=== PATIENT | male | born 1955 | race Caucasian/White ===

== ENCOUNTER 2022-06-03 09:00 | Inpatient (IN) ==
[2022-06-01] MEDS: NS 1,000 ML IV 1,000 ML IV SCH (18:06)
[2022-06-01] MEDS: DILAUDID INJ IVP PRN (18:06)
[2022-06-01 18:33] LABS: HEMATOCRIT 29.2 % (42.0-54.0); MEAN PLATELET VOLUME 7.6 fL (7.4-11.0); RED BLOOD COUNT 3.54 X10^6/uL (4.7-6.0); WHITE BLOOD COUNT 10.8 X10^3/uL (3.6-10.0)
[2022-06-01 18:35] LABS: BASOPHILS # (AUTO) 0.1 X10^3/uL (0.0-0.1); BASOPHILS % (AUTO) 0.5 % (0.2-1.0); EOSINOPHILS % (AUTO) 0.2 % (0.9-2.9); HEMOGLOBIN 9.8 g/dL (13.5-18.0); LYMPHOCYTES # (AUTO) 1.5 X10^3/uL (1.3-2.9); LYMPHOCYTES % (AUTO) 13.5 % (21.0-51.0); MEAN CORPUSCULAR HEMOGLOBIN 27.7 pg (27.0-34.0); MEAN CORPUSCULAR HGB CONC 33.6 g/dL (33.0-35.0); MEAN CORPUSCULAR VOLUME 82.6 fL (80.0-100.0); MONOCYTES # (AUTO) 0.7 x10^3/uL (0.3-0.8); MONOCYTES % (AUTO) 6.4 % (0.0-13.0); NEUTROPHILS # (AUTO) 8.5 x10^3/uL (2.2-4.8); NEUTROPHILS % (AUTO) 79.4 % (42.0-75.0); RED CELL DISTRIBUTION WIDTH 18.7 % (11.6-16.5)
[2022-06-01 18:42] LABS: ALANINE AMINOTRANSFERASE 22 Units/L (12-78); ALBUMIN 2.1 g/dL (3.4-5.0); ALKALINE PHOSPHATASE 168 Units/L (46-116); ASPARTATE AMINO TRANSFERASE 16 Units/L (15-37); BLOOD UREA NITROGEN 41 mg/dL (7-18); CALCIUM 9.7 mg/dL (8.5-10.1); CARBON DIOXIDE 22.1 mmol/L (21-32); CHLORIDE 99 mmol/L (98-107); COR CA(FOR HYPOALB) 11.2 mg/dL (8.5-10.1); COR NA(FOR HYPERGLY) 135 mmol/L (136-145); CREATININE 0.85 mg/dL (0.70-1.30); SODIUM 132 mmol/L (136-145); TOTAL PROTEIN 6.8 g/dL (6.4-8.2); eGFR NON BLACK RACES > 60 (>60)
[2022-06-02] MEDS: DILAUDID INJ IVP PRN ×4 (05:55→22:01)
[2022-06-02 06:49] LABS: BASOPHILS # (AUTO) 0.1 X10^3/uL (0.0-0.1); BASOPHILS % (AUTO) 0.6 % (0.2-1.0); EOSINOPHILS % (AUTO) 0.1 % (0.9-2.9); HEMATOCRIT 28.7 % (42.0-54.0); HEMOGLOBIN 9.8 g/dL (13.5-18.0); LYMPHOCYTES # (AUTO) 1.7 X10^3/uL (1.3-2.9); LYMPHOCYTES % (AUTO) 16.2 % (21.0-51.0); MEAN CORPUSCULAR HGB CONC 34.1 g/dL (33.0-35.0); MEAN PLATELET VOLUME 7.8 fL (7.4-11.0); MONOCYTES # (AUTO) 0.8 x10^3/uL (0.3-0.8); MONOCYTES % (AUTO) 7.5 % (0.0-13.0); NEUTROPHILS % (AUTO) 75.6 % (42.0-75.0); RED CELL DISTRIBUTION WIDTH 18.9 % (11.6-16.5); WHITE BLOOD COUNT 10.6 X10^3/uL (3.6-10.0)
[2022-06-02 06:55] LABS: ALANINE AMINOTRANSFERASE 20 Units/L (12-78); ALKALINE PHOSPHATASE 185 Units/L (46-116); ASPARTATE AMINO TRANSFERASE 19 Units/L (15-37); BLOOD UREA NITROGEN 30 mg/dL (7-18); CALCIUM 9.3 mg/dL (8.5-10.1); CARBON DIOXIDE 23.5 mmol/L (21-32); CHLORIDE 99 mmol/L (98-107); COR CA(FOR HYPOALB) 10.9 mg/dL (8.5-10.1); COR NA(FOR HYPERGLY) 134 mmol/L (136-145); CREATININE 0.69 mg/dL (0.70-1.30); SODIUM 132 mmol/L (136-145); TOTAL PROTEIN 6.7 g/dL (6.4-8.2); eGFR NON BLACK RACES > 60 (>60)
[2022-06-02] MEDS: NS 1,000 ML IV 1,000 ML IV SCH ×2 (09:06→20:32)
[2022-06-02] MEDS: NovoLIN R (or HumuLIN R) SUBCUT PRN ×2 (11:55→21:05)
--- NOTE | 2022-06-02 13:24 | DR.H&P ---
H&P - History & Physical for Day of: H&P Date: 06/01/22 - Chief Complaint Chief Complaint: CO PAINFUL, INFECTED BEDSORE - History of Present Illness History of Present Illness: PT IS 66WM ADMITTED WITH CO SEVERE PAIN TO SACRAL DECUBITUS, CO FOUL ODOR AND WEAKNESS. PT IS S/P COLON RESECTION INJULY WITH COLOSTOMY. PT HAD BEEN UNDER THE CARE OF DR MULLIGAN FOR STAGE4 COLON CA. DUE TO COMPLICATIONS FOLLOWING SURGERY, PT WAS BED BOUND FOR OVER A MONTH. PT HAS CENTRAL ABDOMINAL SCAR WITH RUPTURED SEROMA, LEAKING YELLOW FLUID AT THIS TIME. PT SPOUSE STATES HE HAD BEEN VERY WEAK AND HAD UNCONTROLLED PAIN. PT ADMITTED FOR TREATMENT OF ACUTE ILLNESS AND SURGICAL CONSULT - Past Medical History Past Medical History: Arthritis, Diabetes, Hypertension Additional Medical History: COLON CANCER - Past Surgical History Surgical History: Bowel Resection - Social History Does patient currently use any type of tobacco product: No Have you used tobacco products in the last 12 months: No Type of Tobacco Use: None Does any household member use tobacco: No Alcohol Use: None Drug Use: None - Medications Home Medications: Penicillins Allergy (Verified 06/01/22 17:00) CONTINUE taking the following medications aspirin 81 mg tablet,delayed release 81 mg PO DAILY 06/02/22 [History] losartan 25 mg tablet (Cozaar) 25 mg PO BID 06/02/22 [History] metformin 1,000 mg tablet 1,000 mg PO BID 06/02/22 [History] metoprolol tartrate 25 mg tablet 25 mg PO BID 06/02/22 [History] pantoprazole 40 mg tablet,delayed release 40 mg PO DAILY 06/02/22 [History] simvastatin 20 mg tablet 20 mg PO QDAY 06/02/22 [History] - Review of Systems Constitutional: Weakness Eyes: No Symptoms Reported ENT: No Symptoms Reported Respiratory: No Symptoms Reported Cardiovascular: No Symptoms Reported Gastrointestinal: Other (COLOSTOMY) Genitourinary: No Symptoms Reported Musculoskeletal: Back Pain Skin: Wound Neurological: Weakness - Physical Exam Vital Signs: Temperature 98 F Pulse Rate [Left Radial] 113 Respiratory Rate 20 Blood Pressure [Left Arm] 91/55 O2 Sat by Pulse Oximetry 91 Oriented: Normal Eyes: Normal Ear: Normal Nose: Normal Throat: Normal Respiratory: RLL Diminished, LLL Diminished Cardiovascular: Normal Auscultation: Bowel Sounds: Normal, Other (COLOSTOMY PRESENT WITH STOOL) Palpation: Normal Tenderness: Normal Skin: Decreased Turgur, Wound (2CM TUNNEL WOUND ALONG CENTRAL ABDOMINAL SCAR, LARGE SACRAL DECUBITUS WITH PURULENT, MALODOROUS DC) Mood Description: Calm Speech Pattern: Clear, Appropriate - Assessment/Plan (1) Sacral decubitus ulcer, stage III Status: Acute Plan: ADMIT, WOUND CULTURE, IV ATBX. PAIN CONTROL, IV HYDRATION. VERIFY HOME MEDICATION, SURGICAL CONSULT. BP CONTROL (2) Open abdominal wall wound Status: Acute (3) H/O colon cancer, stage IV Status: Acute (4) Diabetes Status: Acute - Allergies Allergies/Adverse Reactions: Allergies Allergy/AdvReac Type Severity Reaction Status Date / Time Penicillins Allergy Verified 06/01/22 17:00
[2022-06-02] MEDS: COZAAR PO SCH ×2 (13:56→21:04)
[2022-06-02] MEDS: LEVAQUIN PREMIX IV 500 MG 500 MG/100 ML BAG IV SCH (13:57)
[2022-06-02] MEDS: ZOCOR TAB 20 MG PO SCH (13:57)
[2022-06-02] MEDS: PERCOCET TAB 5/325 MG PO PRN (19:08)
[2022-06-02] MEDS: LOPRESSOR TAB 25 MG PO SCH (21:05)
[2022-06-02] MEDS: SNACK - Diabetic Appropriate PO SCH (21:08)
[2022-06-03] MEDS: NS 1,000 ML IV 1,000 ML IV SCH ×3 (04:52→22:57)
[2022-06-03] MEDS: PERCOCET TAB 5/325 MG PO PRN ×2 (04:57→17:00)
[2022-06-03 06:32] LABS: BASOPHILS % (AUTO) 0.4 % (0.2-1.0); EOSINOPHILS % (AUTO) 0.6 % (0.9-2.9); HEMATOCRIT 25.4 % (42.0-54.0); HEMOGLOBIN 8.6 g/dL (13.5-18.0); LYMPHOCYTES # (AUTO) 1.5 X10^3/uL (1.3-2.9); LYMPHOCYTES % (AUTO) 16.8 % (21.0-51.0); MEAN CORPUSCULAR HEMOGLOBIN 27.9 pg (27.0-34.0); MEAN CORPUSCULAR VOLUME 82.1 fL (80.0-100.0); MEAN PLATELET VOLUME 7.7 fL (7.4-11.0); MONOCYTES # (AUTO) 0.7 x10^3/uL (0.3-0.8); MONOCYTES % (AUTO) 8.3 % (0.0-13.0); NEUTROPHILS # (AUTO) 6.6 x10^3/uL (2.2-4.8); NEUTROPHILS % (AUTO) 73.9 % (42.0-75.0); RED BLOOD COUNT 3.09 X10^6/uL (4.7-6.0); RED CELL DISTRIBUTION WIDTH 18.5 % (11.6-16.5); WHITE BLOOD COUNT 8.9 X10^3/uL (3.6-10.0)
[2022-06-03 06:47] LABS: ALANINE AMINOTRANSFERASE 24 Units/L (12-78); ALBUMIN 1.6 g/dL (3.4-5.0); ALKALINE PHOSPHATASE 189 Units/L (46-116); ASPARTATE AMINO TRANSFERASE 32 Units/L (15-37); BLOOD UREA NITROGEN 17 mg/dL (7-18); CHLORIDE 101 mmol/L (98-107); COR CA(FOR HYPOALB) 10.9 mg/dL (8.5-10.1); COR NA(FOR HYPERGLY) 135 mmol/L (136-145); CREATININE 0.59 mg/dL (0.70-1.30); SODIUM 133 mmol/L (136-145); TOTAL PROTEIN 5.9 g/dL (6.4-8.2); eGFR NON BLACK RACES > 60 (>60)
[2022-06-03] MEDS: LEVAQUIN PREMIX IV 500 MG 500 MG/100 ML BAG IV SCH (08:39)
[2022-06-03] MEDS: COZAAR PO SCH ×2 (08:39→21:43)
[2022-06-03] MEDS: ZOCOR TAB 20 MG PO SCH (08:40)
[2022-06-03] MEDS: LOPRESSOR TAB 25 MG PO SCH ×2 (08:40→21:43)
[2022-06-03] MEDS: ASPIRIN EC 81 MG PO SCH (08:40)
[2022-06-03] MEDS: PROTONIX TAB 40 MG PO SCH (08:40)
[2022-06-03] MEDS: DILAUDID INJ IVP PRN (09:35)
[2022-06-03 13:40] VITALS: BMI 27.6
[2022-06-03] MEDS: NovoLIN R (or HumuLIN R) SUBCUT PRN (17:07)
[2022-06-03] MEDS: SNACK - Diabetic Appropriate PO SCH (21:43)
[2022-06-04] MEDS: PERCOCET TAB 5/325 MG PO PRN (01:03)
[2022-06-04] MEDS: NS 1,000 ML IV 1,000 ML IV SCH ×3 (04:02→20:01)
[2022-06-04] MEDS: NovoLIN R (or HumuLIN R) SUBCUT PRN ×2 (05:46→12:56)
[2022-06-04 05:51] LABS: BASOPHILS # (AUTO) 0.1 X10^3/uL (0.0-0.1); BASOPHILS % (AUTO) 0.8 % (0.2-1.0); EOSINOPHILS # (AUTO) 0.1 x10^3/uL (0.0-0.2); EOSINOPHILS % (AUTO) 1.3 % (0.9-2.9); HEMATOCRIT 25.8 % (42.0-54.0); HEMOGLOBIN 8.7 g/dL (13.5-18.0); LYMPHOCYTES # (AUTO) 1.7 X10^3/uL (1.3-2.9); LYMPHOCYTES % (AUTO) 24.7 % (21.0-51.0); MEAN CORPUSCULAR HEMOGLOBIN 27.8 pg (27.0-34.0); MEAN CORPUSCULAR HGB CONC 33.7 g/dL (33.0-35.0); MEAN CORPUSCULAR VOLUME 82.7 fL (80.0-100.0); MEAN PLATELET VOLUME 7.7 fL (7.4-11.0); MONOCYTES # (AUTO) 0.6 x10^3/uL (0.3-0.8); MONOCYTES % (AUTO) 8.2 % (0.0-13.0); NEUTROPHILS # (AUTO) 4.5 x10^3/uL (2.2-4.8); RED BLOOD COUNT 3.12 X10^6/uL (4.7-6.0); RED CELL DISTRIBUTION WIDTH 18.2 % (11.6-16.5)
[2022-06-04 06:06] LABS: ALANINE AMINOTRANSFERASE 82 Units/L (12-78); ALBUMIN 1.5 g/dL (3.4-5.0); ALKALINE PHOSPHATASE 314 Units/L (46-116); ASPARTATE AMINO TRANSFERASE 97 Units/L (15-37); BLOOD UREA NITROGEN 13 mg/dL (7-18); CALCIUM 8.7 mg/dL (8.5-10.1); CARBON DIOXIDE 22.5 mmol/L (21-32); CHLORIDE 101 mmol/L (98-107); COR CA(FOR HYPOALB) 10.7 mg/dL (8.5-10.1); COR NA(FOR HYPERGLY) 137 mmol/L (136-145); CREATININE 0.64 mg/dL (0.70-1.30); SODIUM 133 mmol/L (136-145); TOTAL PROTEIN 5.6 g/dL (6.4-8.2); eGFR NON BLACK RACES > 60 (>60)
[2022-06-04] MEDS: ALBUMIN HUMAN 25%- 100 ML 100 ML IV SCH (09:26)
[2022-06-04] MEDS: COZAAR PO SCH ×2 (09:27→09:54)
[2022-06-04] MEDS: ASPIRIN EC 81 MG PO SCH ×2 (09:27→09:54)
[2022-06-04] MEDS: PROTONIX TAB 40 MG PO SCH ×2 (09:27→09:54)
[2022-06-04] MEDS: LEVAQUIN PREMIX IV 500 MG 500 MG/100 ML BAG IV SCH (09:27)
[2022-06-04] MEDS: ZOCOR TAB 20 MG PO SCH ×2 (09:28→09:54)
[2022-06-04] MEDS: LOPRESSOR TAB 25 MG PO SCH ×2 (09:28→09:54)
[2022-06-04] MEDS: DILAUDID INJ IVP PRN ×2 (10:09→11:58)
[2022-06-04] MEDS ORDERED: XYLOCAINE 2 % (PLAIN) ONE (14:25)
[2022-06-04] MEDS ORDERED: DIPRIVAN VIAL 20 ML ONE (14:25)
[2022-06-04] MEDS ORDERED: VERSED ONE (14:26)
[2022-06-04] MEDS ORDERED: BETADINE SOLN ONE (14:27)
[2022-06-04] MEDS ORDERED: POLYMYXIN B SULFATE ONE (14:27)
[2022-06-04] MEDS ORDERED: FENTANYL VIAL INJ 100 mcg ONE (14:28)
[2022-06-04] MEDS ORDERED: NS 1,000 ML IV 1,000 ML ONE (15:19)
[2022-06-04] MEDS ORDERED: KETAMINE HCL ONE (15:45)
[2022-06-04] MEDS ORDERED: VANCOMYCIN IV *PREMIX 1 G/200 ML BAG 1 G/200 ML PIGGYBACK IV ONE (15:51)
[2022-06-04] MEDS ORDERED: MARCAINE 0.5% ONE (16:10)
[2022-06-04] MEDS: SNACK - Diabetic Appropriate PO SCH (20:00)
[2022-06-05] MEDS: SNACK - Diabetic Appropriate PO SCH ×2 (00:04→23:28)
[2022-06-05] MEDS: NS 1,000 ML IV 1,000 ML IV SCH ×4 (00:05→23:27)
[2022-06-05] MEDS: COZAAR PO SCH ×3 (01:11→21:08)
[2022-06-05] MEDS: PERCOCET TAB 5/325 MG PO PRN ×2 (03:15→09:15)
[2022-06-05 06:14] LABS: BASOPHILS # (AUTO) 0.1 X10^3/uL (0.0-0.1); BASOPHILS % (AUTO) 1.2 % (0.2-1.0); EOSINOPHILS # (AUTO) 0.1 x10^3/uL (0.0-0.2); EOSINOPHILS % (AUTO) 2.7 % (0.9-2.9); HEMATOCRIT 24.2 % (42.0-54.0); HEMOGLOBIN 8.1 g/dL (13.5-18.0); LYMPHOCYTES # (AUTO) 1.5 X10^3/uL (1.3-2.9); MEAN CORPUSCULAR HEMOGLOBIN 27.8 pg (27.0-34.0); MEAN CORPUSCULAR HGB CONC 33.6 g/dL (33.0-35.0); MEAN CORPUSCULAR VOLUME 82.8 fL (80.0-100.0); MEAN PLATELET VOLUME 7.8 fL (7.4-11.0); MONOCYTES # (AUTO) 0.5 x10^3/uL (0.3-0.8); NEUTROPHILS % (AUTO) 58.1 % (42.0-75.0); RED BLOOD COUNT 2.92 X10^6/uL (4.7-6.0); RED CELL DISTRIBUTION WIDTH 18.5 % (11.6-16.5); WHITE BLOOD COUNT 5.3 X10^3/uL (3.6-10.0)
[2022-06-05 06:21] LABS: ALANINE AMINOTRANSFERASE 95 Units/L (12-78); ALBUMIN 1.7 g/dL (3.4-5.0); ALKALINE PHOSPHATASE 327 Units/L (46-116); ASPARTATE AMINO TRANSFERASE 101 Units/L (15-37); BLOOD UREA NITROGEN 9 mg/dL (7-18); CALCIUM 8.6 mg/dL (8.5-10.1); CARBON DIOXIDE 23.9 mmol/L (21-32); CHLORIDE 103 mmol/L (98-107); COR CA(FOR HYPOALB) 10.4 mg/dL (8.5-10.1); COR NA(FOR HYPERGLY) 139 mmol/L (136-145); CREATININE 0.47 mg/dL (0.70-1.30); SODIUM 136 mmol/L (136-145); TOTAL PROTEIN 5.3 g/dL (6.4-8.2); eGFR NON BLACK RACES > 60 (>60)
[2022-06-05] MEDS: ALBUMIN HUMAN 25%- 100 ML 100 ML IV SCH (09:31)
[2022-06-05] MEDS: ASPIRIN EC 81 MG PO SCH (09:32)
[2022-06-05] MEDS: LEVAQUIN PREMIX IV 500 MG 500 MG/100 ML BAG IV SCH (09:32)
[2022-06-05] MEDS: LOPRESSOR TAB 25 MG PO SCH ×3 (09:32→21:08)
[2022-06-05] MEDS: PROTONIX TAB 40 MG PO SCH (09:33)
[2022-06-05] MEDS: ZOCOR TAB 20 MG PO SCH (09:33)
--- NOTE | 2022-06-05 10:17 | DR.PROGNOT ---
Hospital Progress Notes - Progress Note for Day of: Progress Note Date: 06/05/22 - Chief Complaint Chief Complaint: feeling better today . moderate drainage from sacral ulcer .. dressing was changed and wound repacked .. - Past Medical Family Social History Past Med/Fam/Surg Hx: No changes since H&P Allergies: Allergies Penicillins Allergy (Verified 06/01/22 17:00) - Review Of Systems ROS: No change since H&P - Vital Signs Vital Signs: Temperature 98.5 F Pulse Rate [Left Radial] 91 Pulse Rate 87 Respiratory Rate 20 Blood Pressure [Right Arm] 107/55 Blood Pressure [Left Arm] 100/55 Blood Pressure 134/79 O2 Sat by Pulse Oximetry 98 - Physical Exam Oriented: Normal Eyes: Normal Ear: Normal Nose: Normal Throat: Normal Cardiovascular: Normal GI:Auscultation: Normal, Other (COLOSTOMY PRESENT WITH STOOL) GI:Palpation: Normal GI: Tenderness: Normal Skin: Decreased Turgur, Wound (2CM TUNNEL WOUND ALONG CENTRAL ABDOMINAL SCAR, LARGE SACRAL DECUBITUS WITH PURULENT, MALODOROUS DC) Mood Description: Calm Speech Pattern: Clear, Appropriate - Laboratory and Diagnostics Result Diagrams: 06/05/22 05:05 06/05/22 05:05 Labs: 06/04/22 16:17 Sacral Wound Gram Stain - Final 06/04/22 16:17 Sacral Wound Culture - Preliminary 06/02/22 10:10 Sacral Wound Gram Stain - Final 06/02/22 10:10 Sacral Wound Culture - Final Enterococcus Faecalis Klebsiella Pneumoniae 06/01/22 18:10 Blood Blood Culture - Preliminary 06/01/22 17:02 Abdomen Wound Culture - Final Staphylococcus Intermedius 06/01/22 18:00 Blood Blood Culture - Preliminary 06/01/22 17:25 Abdomen Wound Culture - Final Staphylococcus Aureus Laboratory WBC 5.3 X10^3/uL (3.6-10.0) 06/05/22 05:05 RBC 2.92 X10^6/uL (4.7-6.0) L 06/05/22 05:05 Hgb 8.1 g/dL (13.5-18.0) L 06/05/22 05:05 Hct 24.2 % (42.0-54.0) L 06/05/22 05:05 MCV 82.8 fL (80.0-100.0) 06/05/22 05:05 MCH 27.8 pg (27.0-34.0) 06/05/22 05:05 MCHC 33.6 g/dL (33.0-35.0) 06/05/22 05:05 RDW 18.5 % (11.6-16.5) H 06/05/22 05:05 Plt Count 454 X10^3/uL (150.0-450.0) H 06/05/22 05:05 MPV 7.8 fL (7.4-11.0) 06/05/22 05:05 Neut % (Auto) 58.1 % (42.0-75.0) 06/05/22 05:05 Lymph % (Auto) 29.0 % (21.0-51.0) 06/05/22 05:05 [place] % (Auto) 9.0 % (0.0-13.0) 06/05/22 05:05 Eos % (Auto) 2.7 % (0.9-2.9) 06/05/22 05:05 Baso % (Auto) 1.2 % (0.2-1.0) H 06/05/22 05:05 Neut # (Auto) 3.0 x10^3/uL (2.2-4.8) 06/05/22 05:05 Lymph # (Auto) 1.5 X10^3/uL (1.3-2.9) 06/05/22 05:05 Bee # (Auto) 0.5 x10^3/uL (0.3-0.8) 06/05/22 05:05 Eos # (Auto) 0.1 x10^3/uL (0.0-0.2) 06/05/22 05:05 Baso # (Auto) 0.1 X10^3/uL (0.0-0.1) 06/05/22 05:05 Absolute Nucleated RBC 0.2 /100WBC 06/05/22 05:05 Sodium 136 mmol/L (136-145) 06/05/22 05:05 Corrected Sodium 139 mmol/L (136-145) 06/05/22 05:05 Potassium 4.4 mmol/L (3.5-5.1) 06/05/22 05:05 Chloride 103 mmol/L (98-107) 06/05/22 05:05 Carbon Dioxide 23.9 mmol/L (21-32) 06/05/22 05:05 BUN 9 mg/dL (7-18) 06/05/22 05:05 Creatinine 0.47 mg/dL (0.70-1.30) L 06/05/22 05:05 Est GFR (MDRD) Af Amer > 60 (>60) 06/05/22 05:05 Est GFR (MDRD) Non-Af > 60 (>60) 06/05/22 05:05 Glucose 212 mg/dL (65-99) H 06/05/22 05:05 POC Glucose (mg/dL) 188 mg/dL (65-99) H 06/05/22 05:11 Calcium 8.6 mg/dL (8.5-10.1) 06/05/22 05:05 Corrected Calcium 10.4 mg/dL (8.5-10.1) H 06/05/22 05:05 Total Bilirubin 0.40 mg/dL (0.2-1.0) 06/05/22 05:05 AST 101 Units/L (15-37) H 06/05/22 05:05 ALT 95 Units/L (12-78) H 06/05/22 05:05 Alkaline Phosphatase 327 Units/L (46-116) H 06/05/22 05:05 Total Protein 5.3 g/dL (6.4-8.2) L 06/05/22 05:05 Albumin 1.7 g/dL (3.4-5.0) L 06/05/22 05:05 Globulin 3.6 g/dL (2.5-4.5) 06/05/22 05:05 Albumin/Globulin Ratio 0.5 Ratio (1.1-2.1) L 06/05/22 05:05 SARS-CoV-2 (PCR) Negative (NEGATIVE) 06/01/22 17:15 Tissue Pathology To follow 06/04/22 16:17 - Assessment and Plan 1: stage lll sactral ulcer 7 x 4 cm .. same local care , IV ABT .. wound Vac when the ifection is controlled .. nutritional support and OOB . - Problem Patient Problems: Patient Problems Sacral decubitus ulcer, stage III (Acute) L89.153 H/O colon cancer, stage IV (Acute) Z85.038 Open abdominal wall wound (Acute) S31.109A Diabetes (Acute) E11.9
[2022-06-05] MEDS: DILAUDID INJ IVP PRN (11:02)
--- NOTE | 2022-06-05 13:15 | PCM.PROG ---
Progress Note - Progress Note for Day of Date of Exam: 06/04/22 - Subjective Subjective: IS CURRENTLY BEING TREATED FOR AN INFECTED DECUBITUS ULCER, OPEN ABDOMINAL WALL WOUND, AND INTRACTABLE PAIN. HE IS S/P COLON RESECTION AND COLOSTOMY DUE TO STAGE 4 COLON CANCER. HE HAS A PMH OF HTN, DM II, HYPERLIPIDEMIA, AND GERD. TODAY, HE IS ALERT AND ORIENTED, LYING IN BED ON [place] ROUNDS. HE COMPLAINS OF PAIN TO THE SACRAL AREA, BUT DOES REPORT SOME IMPROVEMENT SINCE ADMISSION. ON EXAMINATION, HEART IS REGULAR IN RATE AND RHYTHM. BILATERAL LUNGS NOTED WITH DIMINISHED LUNG SOUNDS THROUGHOUT. ABDOMEN IS ROUND, SOFT, AND NOTED WITH MILD TENDERNESS. COLOSTOMY NOTED WITH LIQUID STOOL. DRESSING NOTED TO ABDOMEN WITH SEROSANGUINOUS DRAINAGE NOTED. ULCER TO SACRUM CONTINUES TO HAVE DRAINAGE AND FOUL ODOR. NO UPPER OR LOWER EXTREMITY EDEMA NOTED. HIS VITALS THIS MORNING ARE: 98.1-88-18-97%-113/98. LABS WERE OBTAINED. WBC 7.0, RBC 3.12, HGB 8.7, HCT 25.8, SODIUM 133, POTASSIUM 4.5, CHLORIDE 101, BUN 13, CREATININE 0.64, GLUCOSE 254, CALCIUM 8.7, AST 97, ALT 82, ALK PHOS 314, TOTAL PROTEIN 5.6, ALBUMIN 1.5. WOULD CULTURES TO ABDOMEN ARE POSITIVE FOR GROWTH OF STAPHYLOCOCCUS INTERMEDIUS AND STAPHYLOCOCCUS AUREUS. SACRUL WOUND POSITIVE POSTIVE FOR GROWTH OF ENTERICOCCUS FAECALIS AND KLEBSIELLA PNEUMONIAE. HE IS CURRENTLY RECEIVING NORMAL SALINE AT 125 ML/HR, LEVAQUIN 500MG IV DAILY, ALBUMIN 25% IV DAILY, ECOTRIN 81MG PO DAILY, DILAUDID 1-2MG IV Q4H PRN, NOVOLIN R SLIDING SCALE, COZAAR 25MG PO BID, LOPRESSOR 25MG PO BID, PROTONIX 40MG PO DAILY, ZOCOR 20MG PO DAILY, AND PERCOCET 5/325MG PO Q6H PRN. PLANS TO DEBRIDE WOUNDS TODAY. OTHERWISE, WE WILL CONTINUE WITH CURRENT PLAN OF CARE. WE WILL FOLLOW-UP WITH AM LABS AND CONTINUE TO MONITOR. TIME SPENT ON CLINICAL ASSESSMENT, REVIWING LABS AND IMAGING, DECISION MAKING, AND DOCUMENTATION GREATER THAN 45 MINUTES. - Past Medical Family Social History Past Med/Fam/Surg Hx: No changes since H&P Allergies: Allergies Penicillins Allergy (Verified 06/01/22 17:00) - Review of Systems ROS: No change since H&P - Vital Signs and I&O's Vital Signs: Temperature 98.1 F Pulse Rate [Left Radial] 82 Pulse Rate 87 Respiratory Rate 18 Blood Pressure [Right Arm] 107/55 Blood Pressure [Left Arm] 108/55 Blood Pressure 134/79 O2 Sat by Pulse Oximetry 95 Intake and Output: Intake & Output 06/03/22 06/04/22 06/05/22 06/06/22 11:59 11:59 11:59 11:59 Intake Total 2205 / 2205 1988 / 1988 2845 / 2845 Output Total 880 / 880 1200 / 1200 2350 / 2350 Balance 1325 / 1325 789 / 789 495 / 495 - Physical Exam Oriented: Normal Eyes: Normal Ear: Normal Nose: Normal Throat: Normal Cardiovascular: Normal Auscultation: Bowel Sounds: Normal, Other (COLOSTOMY PRESENT WITH STOOL) Tenderness: Normal Skin: Decreased Turgur, Wound (2CM TUNNEL WOUND ALONG CENTRAL ABDOMINAL SCAR, LARGE SACRAL DECUBITUS WITH PURULENT, MALODOROUS DC) Musculoskeletal: Normal Psychiatric: Normal Mood Description: Calm Affect: Normal Speech Pattern: Clear, Appropriate - Laboratory and Diagnostics Result Diagrams: 06/05/22 05:05 06/05/22 05:05 Labs: 06/04/22 16:17 Sacral Wound Gram Stain - Final 06/04/22 16:17 Sacral Wound Culture - Preliminary 06/02/22 10:10 Sacral Wound Gram Stain - Final 06/02/22 10:10 Sacral Wound Culture - Final Enterococcus Faecalis Klebsiella Pneumoniae 06/01/22 18:10 Blood Blood Culture - Preliminary 06/01/22 17:02 Abdomen Wound Culture - Final Staphylococcus Intermedius 06/01/22 18:00 Blood Blood Culture - Preliminary 06/01/22 17:25 Abdomen Wound Culture - Final Staphylococcus Aureus Laboratory WBC 5.3 X10^3/uL (3.6-10.0) 06/05/22 05:05 RBC 2.92 X10^6/uL (4.7-6.0) L 06/05/22 05:05 Hgb 8.1 g/dL (13.5-18.0) L 06/05/22 05:05 Hct 24.2 % (42.0-54.0) L 06/05/22 05:05 MCV 82.8 fL (80.0-100.0) 06/05/22 05:05 MCH 27.8 pg (27.0-34.0) 06/05/22 05:05 MCHC 33.6 g/dL (33.0-35.0) 06/05/22 05:05 RDW 18.5 % (11.6-16.5) H 06/05/22 05:05 Plt Count 454 X10^3/uL (150.0-450.0) H 06/05/22 05:05 MPV 7.8 fL (7.4-11.0) 06/05/22 05:05 Neut % (Auto) 58.1 % (42.0-75.0) 06/05/22 05:05 Lymph % (Auto) 29.0 % (21.0-51.0) 06/05/22 05:05 [place] % (Auto) 9.0 % (0.0-13.0) 06/05/22 05:05 Eos % (Auto) 2.7 % (0.9-2.9) 06/05/22 05:05 Baso % (Auto) 1.2 % (0.2-1.0) H 06/05/22 05:05 Neut # (Auto) 3.0 x10^3/uL (2.2-4.8) 06/05/22 05:05 Lymph # (Auto) 1.5 X10^3/uL (1.3-2.9) 06/05/22 05:05 [place] # (Auto) 0.5 x10^3/uL (0.3-0.8) 06/05/22 05:05 Eos # (Auto) 0.1 x10^3/uL (0.0-0.2) 06/05/22 05:05 Baso # (Auto) 0.1 X10^3/uL (0.0-0.1) 06/05/22 05:05 Absolute Nucleated RBC 0.2 /100WBC 06/05/22 05:05 Sodium 136 mmol/L (136-145) 06/05/22 05:05 Corrected Sodium 139 mmol/L (136-145) 06/05/22 05:05 Potassium 4.4 mmol/L (3.5-5.1) 06/05/22 05:05 Chloride 103 mmol/L (98-107) 06/05/22 05:05 Carbon Dioxide 23.9 mmol/L (21-32) 06/05/22 05:05 BUN 9 mg/dL (7-18) 06/05/22 05:05 Creatinine 0.47 mg/dL (0.70-1.30) L 06/05/22 05:05 Est GFR (MDRD) Af Amer > 60 (>60) 06/05/22 05:05 Est GFR (MDRD) Non-Af > 60 (>60) 06/05/22 05:05 Glucose 212 mg/dL (65-99) H 06/05/22 05:05 POC Glucose (mg/dL) 204 mg/dL (65-99) H 06/05/22 10:53 Calcium 8.6 mg/dL (8.5-10.1) 06/05/22 05:05 Corrected Calcium 10.4 mg/dL (8.5-10.1) H 06/05/22 05:05 Total Bilirubin 0.40 mg/dL (0.2-1.0) 06/05/22 05:05 AST 101 Units/L (15-37) H 06/05/22 05:05 ALT 95 Units/L (12-78) H 06/05/22 05:05 Alkaline Phosphatase 327 Units/L (46-116) H 06/05/22 05:05 Total Protein 5.3 g/dL (6.4-8.2) L 06/05/22 05:05 Albumin 1.7 g/dL (3.4-5.0) L 06/05/22 05:05 Globulin 3.6 g/dL (2.5-4.5) 06/05/22 05:05 Albumin/Globulin Ratio 0.5 Ratio (1.1-2.1) L 06/05/22 05:05 SARS-CoV-2 (PCR) Negative (NEGATIVE) 06/01/22 17:15 Tissue Pathology To follow 06/04/22 16:17 - Plan (1) Sacral decubitus ulcer, stage III Status: Acute Plan: WOUND DEBRIDEMENT TODAY, NORMAL SALINE AT 125 ML/HR, LEVAQUIN 500MG IV D AILY, ALBUMIN 25% IV DAILY, ECOTRIN 81MG PO DAILY, DILAUDID 1-2MG IV Q4H PRN, CONTINUE HOME MEDS (2) Open abdominal wall wound Status: Acute (3) H/O colon cancer, stage IV Status: Acute (4) Diabetes Status: Chronic Qualifiers: Diabetes mellitus type: type 2 Diabetes mellitus terminal computer operator insulin use: with terminal computer operator use Diabetes mellitus complication status: with other specified complication Qualified Code(s): E11.69 - Type 2 diabetes mellitus with other specified complication; Z79.4 - terminal make up operator (current) use of insulin (5) Hypertension Status: Chronic Qualifiers: Hypertension type: primary hypertension Qualified Code(s): I10 - Essential (primary) hypertension
--- NOTE | 2022-06-05 13:28 | PCM.PROG ---
Progress Note - Progress Note for Day of Date of Exam: 06/05/22 - Subjective Subjective: IS CURRENTLY BEING TREATED FOR AN INFECTED DECUBITUS ULCER, OPEN ABDOMINAL WALL WOUND, AND INTRACTABLE PAIN. HE IS DAY 1 STATUS POST DEBRIDEMENT OF SACRAL WOUNDS. HE IS ALSO RECENT S/P COLON RESECTION AND COLOSTOMY DUE TO STAGE 4 COLON CANCER. HE HAS A PMH OF HTN, DM II, HYPERLIPIDEM IA, AND GERD. TODAY, HE IS ALERT AND ORIENTED, LYING IN BED ON MORNING ROUNDS. HE CONTINUES TO COMPLAIN OF PAIN TO THE SACRAL AREA, BUT DOES REPORT SOME IMPROVEMENT SINCE YESTERDAY. ON EXAMINATION, HEART IS REGULAR IN RATE AND RHYTHM. BILATERAL LUNGS NOTED WITH DIMINISHED LUNG SOUNDS THROUGHOUT. ABDOMEN IS ROUND, SOFT, AND NOTED WITH MILD TENDERNESS. COLOSTOMY NOTED WITH LIQUID STOOL. DRESSING NOTED TO ABDOMEN WITH SCANT SEROSANGUINOUS DRAINAGE NOTED. ULCER TO SACRUM IS PACKED. WILL MANAGE DRESSING CHANGES FOR NOW. NO UPPER OR LOWER EXTREMITY EDEMA NOTED. HIS VITALS THIS MORNING ARE: 98.5-91-18-98%-100/55. HE IS CURRENTLY UTILIZING OXYGEN VIA NASAL CANNULA AT 2 LPM. LABS WERE OBTAINED. WBC 5.3, RBC 2.92, HGB 8.1, HCT 24.2, SODIUM 136, POTASSIUM 4.4, CHLORIDE 103, BUN 9, CREATININE 0.47, GLUCOSE 212, CALCIUM 8.6, AST 101, ALT 95, ALK PHOS 327, TOTAL PROTEIN 5.3, ALBUMIN 1.7. WOULD CULTURES TO ABDOMEN ARE POSITIVE FOR GROWTH OF STAPHYLOCOCCUS INTERMEDIUS AND STAPHYLOCOCCUS AUREUS. SACRUM WOUND POSITIVE POSTIVE FOR GROWTH OF ENTERICOCCUS FAECALIS AND KLEBSIELLA PNEUMONIAE. HE IS CURRENTLY RECEIVING NORMAL SALINE AT 125 ML/HR, LEVAQUIN 500MG IV DAILY, ALBUMIN 25% IV DAILY, ECOTRIN 81MG PO DAILY, DILAUDID 1-2MG IV Q4H PRN, NOVOLIN R SLIDING SCALE, COZAAR 25MG PO BID, LOPRESSOR 25MG PO BID, PROTONIX 40MG PO DAILY, ZOCOR 20MG PO DAILY, AND PERCOCET 5/325MG PO Q6H PRN. WILL DO DRESSING CHANGE TODAY. OTHERWISE, WE WILL CONTINUE WITH CURRENT PLAN OF CARE. WE WILL FOLLOW-UP WITH AM LABS AND CONTINUE TO MONITOR. TIME SPENT ON CLINICAL ASSESSMENT, REVIWING LABS AND IMAGING, DECISION MAKING, AND DOCUMENTATION GREATER THAN 45 MINUTES. - Past Medical Family Social History Past Med/Fam/Surg Hx: No changes since H&P Allergies: Allergies Penicillins Allergy (Verified 06/01/22 17:00) - Review of Systems ROS: No change since H&P - Vital Signs and I&O's Vital Signs: Temperature 98.1 F Pulse Rate [Left Radial] 82 Pulse Rate 87 Respiratory Rate 18 Blood Pressure [Right Arm] 107/55 Blood Pressure [Left Arm] 108/55 Blood Pressure 134/79 O2 Sat by Pulse Oximetry 95 Intake and Output: Intake & Output 06/03/22 06/04/22 06/05/22 06/06/22 11:59 11:59 11:59 11:59 Intake Total 2205 / 2205 1988 / 1988 2845 / 2845 Output Total 880 / 880 1200 / 1200 2350 / 2350 Balance 1325 / 1325 789 / 789 495 / 495 - Physical Exam Oriented: Normal Eyes: Normal Ear: Normal Nose: Normal Throat: Normal Respiratory: Diminished Cardiovascular: Normal Auscultation: Bowel Sounds: Normal, Other (COLOSTOMY PRESENT WITH STOOL) Palpation: Normal Tenderness: Normal Skin: Decreased Turgur, Wound (2CM TUNNEL WOUND ALONG CENTRAL ABDOMINAL SCAR, LARGE SACRAL DECUBITUS WITH PURULENT, MALODOROUS DC) Musculoskeletal: Normal Psychiatric: Normal Mood Description: Calm Affect: Normal Speech Pattern: Clear, Appropriate - Laboratory and Diagnostics Result Diagrams: 06/05/22 05:05 06/05/22 05:05 Labs: 06/04/22 16:17 Sacral Wound Gram Stain - Final 06/04/22 16:17 Sacral Wound Culture - Preliminary 06/02/22 10:10 Sacral Wound Gram Stain - Final 06/02/22 10:10 Sacral Wound Culture - Final Enterococcus Faecalis Klebsiella Pneumoniae 06/01/22 18:10 Blood Blood Culture - Preliminary 06/01/22 17:02 Abdomen Wound Culture - Final Staphylococcus Intermedius 06/01/22 18:00 Blood Blood Culture - Preliminary 06/01/22 17:25 Abdomen Wound Culture - Final Staphylococcus Aureus Laboratory WBC 5.3 X10^3/uL (3.6-10.0) 06/05/22 05:05 RBC 2.92 X10^6/uL (4.7-6.0) L 06/05/22 05:05 Hgb 8.1 g/dL (13.5-18.0) L 06/05/22 05:05 Hct 24.2 % (42.0-54.0) L 06/05/22 05:05 MCV 82.8 fL (80.0-100.0) 06/05/22 05:05 MCH 27.8 pg (27.0-34.0) 06/05/22 05:05 MCHC 33.6 g/dL (33.0-35.0) 06/05/22 05:05 RDW 18.5 % (11.6-16.5) H 06/05/22 05:05 Plt Count 454 X10^3/uL (150.0-450.0) H 06/05/22 05:05 MPV 7.8 fL (7.4-11.0) 06/05/22 05:05 Neut % (Auto) 58.1 % (42.0-75.0) 06/05/22 05:05 Lymph % (Auto) 29.0 % (21.0-51.0) 06/05/22 05:05 [place] % (Auto) 9.0 % (0.0-13.0) 06/05/22 05:05 Eos % (Auto) 2.7 % (0.9-2.9) 06/05/22 05:05 Baso % (Auto) 1.2 % (0.2-1.0) H 06/05/22 05:05 Neut # (Auto) 3.0 x10^3/uL (2.2-4.8) 06/05/22 05:05 Lymph # (Auto) 1.5 X10^3/uL (1.3-2.9) 06/05/22 05:05 [place] # (Auto) 0.5 x10^3/uL (0.3-0.8) 06/05/22 05:05 Eos # (Auto) 0.1 x10^3/uL (0.0-0.2) 06/05/22 05:05 Baso # (Auto) 0.1 X10^3/uL (0.0-0.1) 06/05/22 05:05 Absolute Nucleated RBC 0.2 /100WBC 06/05/22 05:05 Sodium 136 mmol/L (136-145) 06/05/22 05:05 Corrected Sodium 139 mmol/L (136-145) 06/05/22 05:05 Potassium 4.4 mmol/L (3.5-5.1) 06/05/22 05:05 Chloride 103 mmol/L (98-107) 06/05/22 05:05 Carbon Dioxide 23.9 mmol/L (21-32) 06/05/22 05:05 BUN 9 mg/dL (7-18) 06/05/22 05:05 Creatinine 0.47 mg/dL (0.70-1.30) L 06/05/22 05:05 Est GFR (MDRD) Af Amer > 60 (>60) 06/05/22 05:05 Est GFR (MDRD) Non-Af > 60 (>60) 06/05/22 05:05 Glucose 212 mg/dL (65-99) H 06/05/22 05:05 POC Glucose (mg/dL) 204 mg/dL (65-99) H 06/05/22 10:53 Calcium 8.6 mg/dL (8.5-10.1) 06/05/22 05:05 Corrected Calcium 10.4 mg/dL (8.5-10.1) H 06/05/22 05:05 Total Bilirubin 0.40 mg/dL (0.2-1.0) 06/05/22 05:05 AST 101 Units/L (15-37) H 06/05/22 05:05 ALT 95 Units/L (12-78) H 06/05/22 05:05 Alkaline Phosphatase 327 Units/L (46-116) H 06/05/22 05:05 Total Protein 5.3 g/dL (6.4-8.2) L 06/05/22 05:05 Albumin 1.7 g/dL (3.4-5.0) L 06/05/22 05:05 Globulin 3.6 g/dL (2.5-4.5) 06/05/22 05:05 Albumin/Globulin Ratio 0.5 Ratio (1.1-2.1) L 06/05/22 05:05 SARS-CoV-2 (PCR) Negative (NEGATIVE) 06/01/22 17:15 Tissue Pathology To follow 06/04/22 16:17 - Plan (1) Sacral decubitus ulcer, stage III Status: Acute Plan: WOUND CARE, NORMAL SALINE AT 125 ML/HR, LEVAQUIN 500MG IV DAILY, ALBUMIN 25% IV DAILY, ECOTRIN 81MG PO DAILY, DILAUDID 1-2MG IV Q4H PRN, CONTINUE HOME MEDS (2) Open abdominal wall wound Status: Acute (3) H/O colon cancer, stage IV Status: Acute (4) Diabetes Status: Chronic Qualifiers: Diabetes mellitus type: type 2 Diabetes mellitus long filler cigar roller machine insulin use: with senior care use Diabetes mellitus complication status: with other specified complication Qualified Code(s): E11.69 - Type 2 diabetes mellitus with other specified complication; Z79.4 - assisted (current) use of insulin (5) Hypertension Status: Chronic Qualifiers: Hypertension type: primary hypertension Qualified Code(s): I10 - Essential (primary) hypertension
[2022-06-05] MEDS: NovoLIN R (or HumuLIN R) SUBCUT PRN (21:08)
[2022-06-06] MEDS: NS 1,000 ML IV 1,000 ML IV SCH ×3 (05:36→16:42)
[2022-06-06 06:12] LABS: BASOPHILS # (AUTO) 0.1 X10^3/uL (0.0-0.1); BASOPHILS % (AUTO) 1.1 % (0.2-1.0); EOSINOPHILS # (AUTO) 0.2 x10^3/uL (0.0-0.2); EOSINOPHILS % (AUTO) 2.4 % (0.9-2.9); HEMATOCRIT 25.4 % (42.0-54.0); HEMOGLOBIN 8.7 g/dL (13.5-18.0); LYMPHOCYTES # (AUTO) 2.3 X10^3/uL (1.3-2.9); LYMPHOCYTES % (AUTO) 37.1 % (21.0-51.0); MEAN CORPUSCULAR HGB CONC 34.2 g/dL (33.0-35.0); MEAN CORPUSCULAR VOLUME 81.7 fL (80.0-100.0); MEAN PLATELET VOLUME 6.9 fL (7.4-11.0); MONOCYTES # (AUTO) 0.5 x10^3/uL (0.3-0.8); MONOCYTES % (AUTO) 8.6 % (0.0-13.0); NEUTROPHILS # (AUTO) 3.2 x10^3/uL (2.2-4.8); NEUTROPHILS % (AUTO) 50.8 % (42.0-75.0); RED BLOOD COUNT 3.11 X10^6/uL (4.7-6.0); RED CELL DISTRIBUTION WIDTH 18.4 % (11.6-16.5); WHITE BLOOD COUNT 6.3 X10^3/uL (3.6-10.0)
[2022-06-06] MEDS: PERCOCET TAB 5/325 MG PO PRN ×2 (06:12→20:33)
[2022-06-06 06:35] LABS: ALANINE AMINOTRANSFERASE 83 Units/L (12-78); ALBUMIN 1.9 g/dL (3.4-5.0); ALKALINE PHOSPHATASE 280 Units/L (46-116); ASPARTATE AMINO TRANSFERASE 65 Units/L (15-37); BLOOD UREA NITROGEN 7 mg/dL (7-18); CALCIUM 8.5 mg/dL (8.5-10.1); CARBON DIOXIDE 24.2 mmol/L (21-32); CHLORIDE 106 mmol/L (98-107); COR CA(FOR HYPOALB) 10.2 mg/dL (8.5-10.1); COR NA(FOR HYPERGLY) 140 mmol/L (136-145); CREATININE 0.45 mg/dL (0.70-1.30); SODIUM 140 mmol/L (136-145); TOTAL PROTEIN 5.4 g/dL (6.4-8.2); eGFR NON BLACK RACES > 60 (>60)
[2022-06-06] MEDS: ALBUMIN HUMAN 25%- 100 ML 100 ML IV SCH (08:44)
[2022-06-06] MEDS: LEVAQUIN PREMIX IV 500 MG 500 MG/100 ML BAG IV SCH (08:44)
[2022-06-06] MEDS: ZOCOR TAB 20 MG PO SCH (08:45)
[2022-06-06] MEDS: LOPRESSOR TAB 25 MG PO SCH ×2 (08:45→20:35)
[2022-06-06] MEDS: ASPIRIN EC 81 MG PO SCH (08:45)
[2022-06-06] MEDS: PROTONIX TAB 40 MG PO SCH (08:45)
[2022-06-06] MEDS: COZAAR PO SCH ×2 (08:52→20:34)
[2022-06-06] MEDS: DILAUDID INJ IVP PRN (16:00)
--- NOTE | 2022-06-06 16:23 | DR.PROGNOT ---
Hospital Progress Notes - Progress Note for Day of: Progress Note Date: 06/06/22 - Chief Complaint Chief Complaint: feeling better today . c/o pain around the sacral ulcer . colostomy is functioning well. moderate drainage from sacral ulcer and abdominal wound.. dressing was changed and wound was repacked .. - Past Medical Family Social History Past Med/Fam/Surg Hx: No changes since H&P Allergies: Allergies Penicillins Allergy (Verified 06/01/22 17:00) - Review Of Systems ROS: No change since H&P - Vital Signs Vital Signs: Temperature 98.3 F Pulse Rate [Left Radial] 78 Pulse Rate 87 Respiratory Rate 20 Blood Pressure [Right Arm] 115/56 Blood Pressure [Left Arm] 127/67 Blood Pressure 134/79 O2 Sat by Pulse Oximetry 97 - Physical Exam Oriented: Normal Eyes: Normal Ear: Normal Nose: Normal Throat: Normal Respiratory: Diminished Cardiovascular: Normal GI:Auscultation: Normal, Other (COLOSTOMY PRESENT WITH STOOL) GI:Palpation: Normal GI: Tenderness: Normal Skin: Decreased Turgur, Wound (2CM TUNNEL WOUND ALONG CENTRAL ABDOMINAL SCAR, LARGE SACRAL DECUBITUS WITH PURULENT, MALODOROUS DC) Musculoskeletal: Normal Psychiatric: Normal Mood Description: Calm Affect: Normal Speech Pattern: Clear, Appropriate - Laboratory and Diagnostics Result Diagrams: 06/06/22 05:57 06/06/22 05:57 Labs: 06/04/22 16:17 Sacral Wound Gram Stain - Final 06/04/22 16:17 Sacral Wound Culture - Preliminary 06/02/22 10:10 Sacral Wound Gram Stain - Final 06/02/22 10:10 Sacral Wound Culture - Final Enterococcus Faecalis Klebsiella Pneumoniae 06/01/22 18:10 Blood Blood Culture - Preliminary 06/01/22 17:02 Abdomen Wound Culture - Final Staphylococcus Intermedius 06/01/22 18:00 Blood Blood Culture - Preliminary 06/01/22 17:25 Abdomen Wound Culture - Final Staphylococcus Aureus Laboratory WBC 6.3 X10^3/uL (3.6-10.0) 06/06/22 05:57 RBC 3.11 X10^6/uL (4.7-6.0) L 06/06/22 05:57 Hgb 8.7 g/dL (13.5-18.0) L 06/06/22 05:57 Hct 25.4 % (42.0-54.0) L 06/06/22 05:57 MCV 81.7 fL (80.0-100.0) 06/06/22 05:57 MCH 28.0 pg (27.0-34.0) 06/06/22 05:57 MCHC 34.2 g/dL (33.0-35.0) 06/06/22 05:57 RDW 18.4 % (11.6-16.5) H 06/06/22 05:57 Plt Count 506 X10^3/uL (150.0-450.0) H 06/06/22 05:57 MPV 6.9 fL (7.4-11.0) L 06/06/22 05:57 Neut % (Auto) 50.8 % (42.0-75.0) 06/06/22 05:57 Lymph % (Auto) 37.1 % (21.0-51.0) 06/06/22 05:57 [place] % (Auto) 8.6 % (0.0-13.0) 06/06/22 05:57 Eos % (Auto) 2.4 % (0.9-2.9) 06/06/22 05:57 Baso % (Auto) 1.1 % (0.2-1.0) H 06/06/22 05:57 Neut # (Auto) 3.2 x10^3/uL (2.2-4.8) 06/06/22 05:57 Lymph # (Auto) 2.3 X10^3/uL (1.3-2.9) 06/06/22 05:57 [place] # (Auto) 0.5 x10^3/uL (0.3-0.8) 06/06/22 05:57 Eos # (Auto) 0.2 x10^3/uL (0.0-0.2) 06/06/22 05:57 Baso # (Auto) 0.1 X10^3/uL (0.0-0.1) 06/06/22 05:57 Absolute Nucleated RBC 0.1 /100WBC 06/06/22 05:57 Sodium 140 mmol/L (136-145) 06/06/22 05:57 Corrected Sodium 140 mmol/L (136-145) 06/06/22 05:57 Potassium 4.2 mmol/L (3.5-5.1) 06/06/22 05:57 Chloride 106 mmol/L (98-107) 06/06/22 05:57 Carbon Dioxide 24.2 mmol/L (21-32) 06/06/22 05:57 BUN 7 mg/dL (7-18) 06/06/22 05:57 Creatinine 0.45 mg/dL (0.70-1.30) L 06/06/22 05:57 Est GFR (MDRD) Af Amer > 60 (>60) 06/06/22 05:57 Est GFR (MDRD) Non-Af > 60 (>60) 06/06/22 05:57 Glucose 113 mg/dL (65-99) H 06/06/22 05:57 POC Glucose (mg/dL) 212 mg/dL (65-99) H 06/06/22 15:40 Calcium 8.5 mg/dL (8.5-10.1) 06/06/22 05:57 Corrected Calcium 10.2 mg/dL (8.5-10.1) H 06/06/22 05:57 Total Bilirubin 0.40 mg/dL (0.2-1.0) 06/06/22 05:57 AST 65 Units/L (15-37) H 06/06/22 05:57 ALT 83 Units/L (12-78) H 06/06/22 05:57 Alkaline Phosphatase 280 Units/L (46-116) H 06/06/22 05:57 Total Protein 5.4 g/dL (6.4-8.2) L 06/06/22 05:57 Albumin 1.9 g/dL (3.4-5.0) L 06/06/22 05:57 Globulin 3.5 g/dL (2.5-4.5) 06/06/22 05:57 Albumin/Globulin Ratio 0.5 Ratio (1.1-2.1) L 06/06/22 05:57 SARS-CoV-2 (PCR) Negative (NEGATIVE) 06/01/22 17:15 Tissue Pathology To follow 06/04/22 16:17 - Assessment and Plan 1: stage lll sactral ulcer 7 x 4 cm .. incisional wounds . same local care , IV ABT .. wound Vac in am . nutritional support and OOB . - Problem Patient Problems: Patient Problems Sacral decubitus ulcer, stage III (Acute) L89.153 H/O colon cancer, stage IV (Acute) Z85.038 Open abdominal wall wound (Acute) S31.109A Diabetes (Chronic) E11.9 Hypertension (Chronic) I10
[2022-06-06] MEDS: NovoLIN R (or HumuLIN R) SUBCUT PRN ×2 (16:42→20:36)
[2022-06-06] MEDS: SNACK - Diabetic Appropriate PO SCH (20:29)
[2022-06-07] MEDS: NS 1,000 ML IV 1,000 ML IV SCH ×3 (00:43→17:31)
[2022-06-07 06:22] LABS: BASOPHILS # (AUTO) 0.1 X10^3/uL (0.0-0.1); BASOPHILS % (AUTO) 1.4 % (0.2-1.0); EOSINOPHILS # (AUTO) 0.2 x10^3/uL (0.0-0.2); EOSINOPHILS % (AUTO) 3.3 % (0.9-2.9); HEMATOCRIT 26.1 % (42.0-54.0); HEMOGLOBIN 8.9 g/dL (13.5-18.0); LYMPHOCYTES # (AUTO) 2.4 X10^3/uL (1.3-2.9); LYMPHOCYTES % (AUTO) 37.3 % (21.0-51.0); MEAN CORPUSCULAR HEMOGLOBIN 28.3 pg (27.0-34.0); MEAN CORPUSCULAR HGB CONC 34.2 g/dL (33.0-35.0); MEAN CORPUSCULAR VOLUME 82.7 fL (80.0-100.0); MEAN PLATELET VOLUME 7.5 fL (7.4-11.0); MONOCYTES # (AUTO) 0.5 x10^3/uL (0.3-0.8); MONOCYTES % (AUTO) 7.7 % (0.0-13.0); NEUTROPHILS # (AUTO) 3.3 x10^3/uL (2.2-4.8); NEUTROPHILS % (AUTO) 50.3 % (42.0-75.0); RED BLOOD COUNT 3.16 X10^6/uL (4.7-6.0); RED CELL DISTRIBUTION WIDTH 18.5 % (11.6-16.5); WHITE BLOOD COUNT 6.5 X10^3/uL (3.6-10.0)
[2022-06-07 06:39] LABS: ALANINE AMINOTRANSFERASE 70 Units/L (12-78); ALBUMIN 2.2 g/dL (3.4-5.0); ALKALINE PHOSPHATASE 242 Units/L (46-116); ASPARTATE AMINO TRANSFERASE 52 Units/L (15-37); BLOOD UREA NITROGEN 9 mg/dL (7-18); CALCIUM 8.8 mg/dL (8.5-10.1); CHLORIDE 108 mmol/L (98-107); COR CA(FOR HYPOALB) 10.2 mg/dL (8.5-10.1); COR NA(FOR HYPERGLY) 142 mmol/L (136-145); CREATININE 0.42 mg/dL (0.70-1.30); SODIUM 142 mmol/L (136-145); TOTAL PROTEIN 5.7 g/dL (6.4-8.2); eGFR NON BLACK RACES > 60 (>60)
[2022-06-07] MEDS: ASPIRIN EC 81 MG PO SCH (08:41)
[2022-06-07] MEDS: ZOCOR TAB 20 MG PO SCH (08:41)
[2022-06-07] MEDS: PROTONIX TAB 40 MG PO SCH (08:41)
[2022-06-07] MEDS: LOPRESSOR TAB 25 MG PO SCH ×2 (08:42→21:00)
[2022-06-07] MEDS: COZAAR PO SCH ×2 (08:42→20:55)
[2022-06-07] MEDS: LEVAQUIN PREMIX IV 500 MG 500 MG/100 ML BAG IV SCH (08:44)
[2022-06-07] MEDS: ALBUMIN HUMAN 25%- 100 ML 100 ML IV SCH (08:45)
[2022-06-07] MEDS: PERCOCET TAB 5/325 MG PO PRN ×2 (09:22→16:00)
--- NOTE | 2022-06-07 12:01 | PCM.PROG ---
Progress Note - Progress Note for Day of Date of Exam: 06/06/22 - Subjective Subjective: IS CURRENTLY BEING TREATED FOR AN INFECTED DECUBITUS ULCER, OPEN ABDOMINAL WALL WOUND, AND INTRACTABLE PAIN. HE IS DAY 2 STATUS POST DEBRIDEMENT OF SACRAL WOUNDS. HE IS ALSO RECENT S/P COLON RESECTION AND COLOSTOMY DUE TO STAGE 4 COLON CANCER. HE HAS A PMH OF HTN, DM II, HYPERLIPIDEM IA, AND GERD. TODAY, HE IS ALERT AND ORIENTED, LYING IN BED ON MORNING ROUNDS. HE CONTINUES TO COMPLAIN OF PAIN TO THE SACRAL AREA, BUT DOES REPORT SOME IMPROVEMENT SINCE YESTERDAY. ON EXAMINATION, HEART IS REGULAR IN RATE AND RHYTHM. BILATERAL LUNGS NOTED WITH DIMINISHED LUNG SOUNDS THROUGHOUT. ABDOMEN IS ROUND, SOFT, AND NOTED WITH MILD TENDERNESS. COLOSTOMY NOTED WITH LIQUID STOOL. THERE CONTINUES TO BE MODERATE DRAINAGE FROM THE SACRAL ULCER AND ABDOMINAL WOUND. WILL MANAGE DRESSING CHANGES FOR NOW. NO UPPER OR LOWER EXTREMITY EDEMA NOTED. HIS VITALS THIS MORNING ARE: 97.6-89-20-98%-125/65. HE IS CURRENTLY UTILIZING OXYGEN VIA NASAL CANNULA AT 2 LPM. LABS WERE OBTAINED. WBC 6.3, RBC 3.11, HGB 8.7, HCT 25.4, PLT COUNT 506, SODIUM 140, POTASSIUM 4.2, BUN 7, CREATININE 0.45, GLUCOSE 113, AST 65, ALT 83, ALK PHOS 280, TOTAL PROTEIN 5.4, ALBUMIN 1.9. WOULD CULTURES TO ABDOMEN ARE POSITIVE FOR GROWTH OF STAPHYLOCOCCUS INTERMEDIUS AND STAPHYLOCOCCUS AUREUS. SACRUM WOUND POSITIVE POSTIVE FOR GROWTH OF STAPH AUREUS, ENTEROCOCCUS FAECALIS, AND KLEBSIELLA PNEUMONIAE. HE IS CURRENTLY RECEIVING NORMAL SALINE AT 125 ML/HR, LEVAQUIN 500MG IV DAILY, ALBUMIN 25% IV DAILY, ECOTRIN 81MG PO DAILY, DILAUDID 1-2MG IV Q4H PRN, NOVOLIN R SLIDING SCALE, COZAAR 25MG PO BID, LOPRESSOR 25MG PO BID, PROTONIX 40MG PO DAILY, ZOCOR 20MG PO DAILY, AND PERCOCET 5/325MG PO Q6H PRN. WE WILL CONTINUE WITH CURRENT PLAN OF CARE TODAY. OTHERWISE, WE WILL FOLLOW-UP WITH AM LABS AND CONTINUE TO MONITOR. TIME SPENT ON CLINICAL ASSESSMENT, REVIWING LABS AND IMAGING, DECISION MAKING, AND DOCUMENTATION GREATER THAN 45 MINUTES. - Past Medical Family Social History Past Med/Fam/Surg Hx: No changes since H&P Allergies: Allergies Penicillins Allergy (Verified 06/01/22 17:00) - Review of Systems ROS: No change since H&P - Vital Signs and I&O's Vital Signs: Temperature 97.8 F Pulse Rate [Left Radial] 93 Pulse Rate 87 Respiratory Rate 18 Blood Pressure [Right Arm] 133/63 Blood Pressure [Left Arm] 139/68 Blood Pressure 134/79 O2 Sat by Pulse Oximetry 97 Intake and Output: Intake & Output 06/05/22 06/06/22 06/07/22 06/08/22 11:59 11:59 11:59 11:59 Intake Total 2845 / 2845 4317 / 4317 3991 / 3991 Output Total 2350 / 2350 2335 / 2335 1275 / 1275 Balance 495 / 495 1981 2716 / 2716 - Physical Exam Oriented: Normal Eyes: Normal Ear: Normal Nose: Normal Throat: Normal Respiratory: Diminished Cardiovascular: Normal Auscultation: Bowel Sounds: Normal, Other (COLOSTOMY PRESENT WITH STOOL) Palpation: Normal Tenderness: Normal Skin: Decreased Turgur, Wound (2CM TUNNEL WOUND ALONG CENTRAL ABDOMINAL SCAR, LARGE SACRAL DECUBITUS WITH PURULENT, MALODOROUS DC) Musculoskeletal: Normal Psychiatric: Normal Mood Description: Calm Affect: Normal Speech Pattern: Clear, Appropriate - Laboratory and Diagnostics Result Diagrams: 06/07/22 05:25 06/07/22 05:25 Labs: 06/01/22 18:10 Blood Blood Culture - Final 06/01/22 18:00 Blood Blood Culture - Final 06/04/22 16:17 Sacral Wound Gram Stain - Final 06/04/22 16:17 Sacral Wound Culture - Final Staphylococcus Aureus Enterococcus Faecalis 06/02/22 10:10 Sacral Wound Gram Stain - Final 06/02/22 10:10 Sacral Wound Culture - Final Enterococcus Faecalis Klebsiella Pneumoniae 06/01/22 17:02 Abdomen Wound Culture - Final Staphylococcus Intermedius 06/01/22 17:25 Abdomen Wound Culture - Final Staphylococcus Aureus Laboratory WBC 6.5 X10^3/uL (3.6-10.0) 06/07/22 05:25 RBC 3.16 X10^6/uL (4.7-6.0) L 06/07/22 05:25 Hgb 8.9 g/dL (13.5-18.0) L 06/07/22 05:25 Hct 26.1 % (42.0-54.0) L 06/07/22 05:25 MCV 82.7 fL (80.0-100.0) 06/07/22 05:25 MCH 28.3 pg (27.0-34.0) 06/07/22 05:25 MCHC 34.2 g/dL (33.0-35.0) 06/07/22 05:25 RDW 18.5 % (11.6-16.5) H 06/07/22 05:25 Plt Count 576 X10^3/uL (150.0-450.0) H 06/07/22 05:25 MPV 7.5 fL (7.4-11.0) 06/07/22 05:25 Neut % (Auto) 50.3 % (42.0-75.0) 06/07/22 05:25 Lymph % (Auto) 37.3 % (21.0-51.0) 06/07/22 05:25 [place] % (Auto) 7.7 % (0.0-13.0) 06/07/22 05:25 Eos % (Auto) 3.3 % (0.9-2.9) H 06/07/22 05:25 Baso % (Auto) 1.4 % (0.2-1.0) H 06/07/22 05:25 Neut # (Auto) 3.3 x10^3/uL (2.2-4.8) 06/07/22 05:25 Lymph # (Auto) 2.4 X10^3/uL (1.3-2.9) 06/07/22 05:25 [place] # (Auto) 0.5 x10^3/uL (0.3-0.8) 06/07/22 05:25 Eos # (Auto) 0.2 x10^3/uL (0.0-0.2) 06/07/22 05:25 Baso # (Auto) 0.1 X10^3/uL (0.0-0.1) 06/07/22 05:25 Absolute Nucleated RBC 0.1 /100WBC 06/07/22 05:25 Sodium 142 mmol/L (136-145) 06/07/22 05:25 Corrected Sodium 142 mmol/L (136-145) 06/07/22 05:25 Potassium 4.7 mmol/L (3.5-5.1) 06/07/22 05:25 Chloride 108 mmol/L (98-107) H 06/07/22 05:25 Carbon Dioxide 26.0 mmol/L (21-32) 06/07/22 05:25 BUN 9 mg/dL (7-18) 06/07/22 05:25 Creatinine 0.42 mg/dL (0.70-1.30) L 06/07/22 05:25 Est GFR (MDRD) Af Amer > 60 (>60) 06/07/22 05:25 Est GFR (MDRD) Non-Af > 60 (>60) 06/07/22 05:25 Glucose 119 mg/dL (65-99) H 06/07/22 05:25 POC Glucose (mg/dL) 152 mg/dL (65-99) H 06/07/22 11:21 Calcium 8.8 mg/dL (8.5-10.1) 06/07/22 05:25 Corrected Calcium 10.2 mg/dL (8.5-10.1) H 06/07/22 05:25 Total Bilirubin 0.30 mg/dL (0.2-1.0) 06/07/22 05:25 AST 52 Units/L (15-37) H 06/07/22 05:25 ALT 70 Units/L (12-78) 06/07/22 05:25 Alkaline Phosphatase 242 Units/L (46-116) H 06/07/22 05:25 Total Protein 5.7 g/dL (6.4-8.2) L 06/07/22 05:25 Albumin 2.2 g/dL (3.4-5.0) L 06/07/22 05:25 Globulin 3.5 g/dL (2.5-4.5) 06/07/22 05:25 Albumin/Globulin Ratio 0.6 Ratio (1.1-2.1) L 06/07/22 05:25 SARS-CoV-2 (PCR) Negative (NEGATIVE) 06/01/22 17:15 Tissue Pathology To follow 06/04/22 16:17 - Plan (1) Sacral decubitus ulcer, stage III Status: Acute Plan: WOUND CARE, NORMAL SALINE AT 125 ML/HR, LEVAQUIN 500MG IV DAILY, ALBUMIN 25% IV DAILY, ECOTRIN 81MG PO DAILY, DILAUDID 1-2MG IV Q4H PRN, CONTINUE HOME MEDS (2) Open abdominal wall wound Status: Acute (3) H/O colon cancer, stage IV Status: Acute (4) Diabetes Status: Chronic Qualifiers: Diabetes mellitus type: type 2 Diabetes mellitus residential insulin use: with manager long term care use Diabetes mellitus complication status: with other specified complication Qualified Code(s): E11.69 - Type 2 diabetes mellitus with other specified complication; Z79.4 - [facility] (current) use of insulin (5) Hypertension Status: Chronic Qualifiers: Hypertension type: primary hypertension Qualified Code(s): I10 - Essential (primary) hypertension
[2022-06-07] MEDS: DILAUDID INJ IVP PRN ×2 (12:59→20:56)
--- NOTE | 2022-06-07 13:07 | PCM.PROG ---
Progress Note - Progress Note for Day of Date of Exam: 06/07/22 - Subjective Subjective: IS CURRENTLY BEING TREATED FOR AN INFECTED DECUBITUS ULCER, OPEN ABDOMINAL WALL WOUND, AND INTRACTABLE PAIN. HE IS DAY 3 STATUS POST DEBRIDEMENT OF SACRAL WOUNDS. HE IS ALSO RECENT S/P COLON RESECTION AND COLOSTOMY DUE TO STAGE 4 COLON CANCER. HE HAS A PMH OF HTN, DM II, HYPERLIPIDEM IA, AND GERD. TODAY, HE IS ALERT AND ORIENTED, LYING IN BED ON MORNING ROUNDS. HE CONTINUES TO COMPLAIN OF PAIN TO THE SACRAL AREA, BUT DOES REPORT SOME IMPROVEMENT SINCE ADMISSION. ON EXAMINATION, HEART IS REGULAR IN RATE AND RHYTHM. BILATERAL LUNGS NOTED WITH DIMINISHED LUNG SOUNDS THROUGHOUT. ABDOMEN IS ROUND, SOFT, AND NOTED WITH MILD TENDERNESS. COLOSTOMY NOTED WITH LIQUID STOOL. THERE CONTINUES TO BE SOME DRAINAGE FROM THE SACRAL ULCER AND ABDOMINAL WOUND. WILL MANAGE DRESSING CHANGES. NO UPPER OR LOWER EXTREMITY EDEMA NOTED. HIS VITALS THIS MORNING ARE: 97.8-93-20-97%-133/63. HE IS CURRENTLY UTILIZING OXYGEN VIA NASAL CANNULA AT 2 LPM. LABS WERE OBTAINED. WBC 6.5, RBC 3.16, HGB 8.9, HCT 26.1, PLT COUNT 576, SODIUM 142, POTASSIUM 4.7, CHLORIDE 108, BUN 9, CREATININE 0.42, GLUCOSE 119, CALCIUM 8.8, AST 52, ALT 70, ALK PHOS 242, TOTAL PROTEIN 5.7, ALBUMIN 2.2. WOULD CULTURES TO ABDOMEN ARE POSITIVE FOR GROWTH OF STAPHYLOCOCCUS INTERMEDIUS AND STAPHYLOCOCCUS AUREUS. SACRUM WOUND POSITIVE POSTIVE FOR GROWTH OF STAPH AUREUS, ENTEROCOCCUS FAECALIS, AND KLEBSIELLA PNEUMONIAE. HE IS CURRENTLY RECEIVING NORMAL SALINE AT 125 ML/HR, LEVAQUIN 500MG IV DAILY, ALBUMIN 25% IV DAILY, ECOTRIN 81MG PO DAILY, DILAUDID 1-2MG IV Q4H PRN, NOVOLIN R SLIDING SCALE, COZAAR 25MG PO BID, LOPRESSOR 25MG PO BID, PROTONIX 40MG PO DAILY, ZOCOR 20MG PO DAILY, AND PERCOCET 5/325MG PO Q6H PRN. WE WILL CONTINUE WITH CURRENT PLAN OF CARE TODAY. SUGGEST THAT PATIENT HAVE A WOUND VAC TO SACRAL WOUNDS. HE HAS ORDERED AND THAT SHE BE PUT ON TODAY. PHYSICAL THERAPY WILL WORK WITH HIM TODAY. OTHERWISE, WE WILL FOLLOW-UP WITH AM LABS AND CONTINUE TO MONITOR. TIME SPENT ON CLINICAL ASSESSMENT, REVIWING LABS AND IMAGING, DECISION MAKING, AND DOCUMENTATION GREATER THAN 45 MINUTES. - Past Medical Family Social History Past Med/Fam/Surg Hx: No changes since H&P Allergies: Allergies Penicillins Allergy (Verified 06/01/22 17:00) - Review of Systems ROS: No change since H&P - Vital Signs and I&O's Vital Signs: Temperature 97.8 F Pulse Rate [Left Radial] 93 Pulse Rate 87 Respiratory Rate 18 Blood Pressure [Right Arm] 133/63 Blood Pressure [Left Arm] 139/68 Blood Pressure 134/79 O2 Sat by Pulse Oximetry 97 Intake and Output: Intake & Output 06/05/22 06/06/22 06/07/22 06/08/22 11:59 11:59 11:59 11:59 Intake Total 2845 / 2845 4317 / 4317 3991 / 3991 Output Total 2350 / 2350 2335 / 2335 1275 / 1275 Balance 495 / 495 1981 / 1981 2716 / 2716 - Physical Exam Oriented: Normal Eyes: Normal Ear: Normal Nose: Normal Throat: Normal Respiratory: Diminished Cardiovascular: Normal Auscultation: Bowel Sounds: Normal, Other (COLOSTOMY PRESENT WITH STOOL) Palpation: Normal Tenderness: Normal Skin: Decreased Turgur, Wound (2CM TUNNEL WOUND ALONG CENTRAL ABDOMINAL SCAR, LARGE SACRAL DECUBITUS WITH PURULENT, MALODOROUS DC) Musculoskeletal: Normal Psychiatric: Normal Mood Description: Calm Affect: Normal Speech Pattern: Clear, Appropriate - Laboratory and Diagnostics Result Diagrams: 06/07/22 05:25 06/07/22 05:25 Labs: 06/01/22 18:10 Blood Blood Culture - Final 06/01/22 18:00 Blood Blood Culture - Final 06/04/22 16:17 Sacral Wound Gram Stain - Final 06/04/22 16:17 Sacral Wound Culture - Final Staphylococcus Aureus Enterococcus Faecalis 06/02/22 10:10 Sacral Wound Gram Stain - Final 06/02/22 10:10 Sacral Wound Culture - Final Enterococcus Faecalis Klebsiella Pneumoniae 06/01/22 17:02 Abdomen Wound Culture - Final Staphylococcus Intermedius 06/01/22 17:25 Abdomen Wound Culture - Final Staphylococcus Aureus Laboratory WBC 6.5 X10^3/uL (3.6-10.0) 06/07/22 05:25 RBC 3.16 X10^6/uL (4.7-6.0) L 06/07/22 05:25 Hgb 8.9 g/dL (13.5-18.0) L 06/07/22 05:25 Hct 26.1 % (42.0-54.0) L 06/07/22 05:25 MCV 82.7 fL (80.0-100.0) 06/07/22 05:25 MCH 28.3 pg (27.0-34.0) 06/07/22 05:25 MCHC 34.2 g/dL (33.0-35.0) 06/07/22 05:25 RDW 18.5 % (11.6-16.5) H 06/07/22 05:25 Plt Count 576 X10^3/uL (150.0-450.0) H 06/07/22 05:25 MPV 7.5 fL (7.4-11.0) 06/07/22 05:25 Neut % (Auto) 50.3 % (42.0-75.0) 06/07/22 05:25 Lymph % (Auto) 37.3 % (21.0-51.0) 06/07/22 05:25 [place] % (Auto) 7.7 % (0.0-13.0) 06/07/22 05:25 Eos % (Auto) 3.3 % (0.9-2.9) H 06/07/22 05:25 Baso % (Auto) 1.4 % (0.2-1.0) H 06/07/22 05:25 Neut # (Auto) 3.3 x10^3/uL (2.2-4.8) 06/07/22 05:25 Lymph # (Auto) 2.4 X10^3/uL (1.3-2.9) 06/07/22 05:25 [place] # (Auto) 0.5 x10^3/uL (0.3-0.8) 06/07/22 05:25 Eos # (Auto) 0.2 x10^3/uL (0.0-0.2) 06/07/22 05:25 Baso # (Auto) 0.1 X10^3/uL (0.0-0.1) 06/07/22 05:25 Absolute Nucleated RBC 0.1 /100WBC 06/07/22 05:25 Sodium 142 mmol/L (136-145) 06/07/22 05:25 Corrected Sodium 142 mmol/L (136-145) 06/07/22 05:25 Potassium 4.7 mmol/L (3.5-5.1) 06/07/22 05:25 Chloride 108 mmol/L (98-107) H 06/07/22 05:25 Carbon Dioxide 26.0 mmol/L (21-32) 06/07/22 05:25 BUN 9 mg/dL (7-18) 06/07/22 05:25 Creatinine 0.42 mg/dL (0.70-1.30) L 06/07/22 05:25 Est GFR (MDRD) Af Amer > 60 (>60) 06/07/22 05:25 Est GFR (MDRD) Non-Af > 60 (>60) 06/07/22 05:25 Glucose 119 mg/dL (65-99) H 06/07/22 05:25 POC Glucose (mg/dL) 152 mg/dL (65-99) H 06/07/22 11:21 Calcium 8.8 mg/dL (8.5-10.1) 06/07/22 05:25 Corrected Calcium 10.2 mg/dL (8.5-10.1) H 06/07/22 05:25 Total Bilirubin 0.30 mg/dL (0.2-1.0) 06/07/22 05:25 AST 52 Units/L (15-37) H 06/07/22 05:25 ALT 70 Units/L (12-78) 06/07/22 05:25 Alkaline Phosphatase 242 Units/L (46-116) H 06/07/22 05:25 Total Protein 5.7 g/dL (6.4-8.2) L 06/07/22 05:25 Albumin 2.2 g/dL (3.4-5.0) L 06/07/22 05:25 Globulin 3.5 g/dL (2.5-4.5) 06/07/22 05:25 Albumin/Globulin Ratio 0.6 Ratio (1.1-2.1) L 06/07/22 05:25 SARS-CoV-2 (PCR) Negative (NEGATIVE) 06/01/22 17:15 Tissue Pathology To follow 06/04/22 16:17 - Plan (1) Sacral decubitus ulcer, stage III Status: Acute Plan: WOUND CARE, NORMAL SALINE AT 125 ML/HR, LEVAQUIN 500MG IV DAILY, ALBUMIN 25% IV DAILY, ECOTRIN 81MG PO DAILY, DILAUDID 1-2MG IV Q4H PRN, CONTINUE HOME MEDS (2) Open abdominal wall wound Status: Acute (3) H/O colon cancer, stage IV Status: Acute (4) Diabetes Status: Chronic Qualifiers: Diabetes mellitus type: type 2 Diabetes mellitus buttermaker continuous churn insulin use: with buttermaker continuous churn use Diabetes mellitus complication status: with other specified complication Qualified Code(s): E11.69 - Type 2 diabetes mellitus with other specified complication; Z79.4 - [facility] (current) use of insulin (5) Hypertension Status: Chronic Qualifiers: Hypertension type: primary hypertension Qualified Code(s): I10 - Essential (primary) hypertension
[2022-06-07] MEDS: NovoLIN R (or HumuLIN R) SUBCUT PRN ×2 (17:31→21:16)
[2022-06-07] MEDS: SNACK - Diabetic Appropriate PO SCH (21:00)
[2022-06-08] MEDS: PERCOCET TAB 5/325 MG PO PRN ×4 (01:21→21:21)
[2022-06-08] MEDS: NS 1,000 ML IV 1,000 ML IV SCH ×4 (01:22→21:24)
[2022-06-08] MEDS: DILAUDID INJ IVP PRN ×2 (03:35→13:12)
[2022-06-08 06:17] LABS: BASOPHILS % (AUTO) 0.8 % (0.2-1.0); EOSINOPHILS # (AUTO) 0.2 x10^3/uL (0.0-0.2); EOSINOPHILS % (AUTO) 3.5 % (0.9-2.9); HEMATOCRIT 24.4 % (42.0-54.0); HEMOGLOBIN 8.2 g/dL (13.5-18.0); LYMPHOCYTES # (AUTO) 2.3 X10^3/uL (1.3-2.9); LYMPHOCYTES % (AUTO) 41.9 % (21.0-51.0); MEAN CORPUSCULAR HEMOGLOBIN 27.9 pg (27.0-34.0); MEAN CORPUSCULAR HGB CONC 33.7 g/dL (33.0-35.0); MEAN CORPUSCULAR VOLUME 82.7 fL (80.0-100.0); MEAN PLATELET VOLUME 7.3 fL (7.4-11.0); MONOCYTES # (AUTO) 0.4 x10^3/uL (0.3-0.8); MONOCYTES % (AUTO) 7.3 % (0.0-13.0); NEUTROPHILS # (AUTO) 2.5 x10^3/uL (2.2-4.8); NEUTROPHILS % (AUTO) 46.5 % (42.0-75.0); RED BLOOD COUNT 2.95 X10^6/uL (4.7-6.0); RED CELL DISTRIBUTION WIDTH 19.2 % (11.6-16.5); WHITE BLOOD COUNT 5.5 X10^3/uL (3.6-10.0)
[2022-06-08 06:42] LABS: ALANINE AMINOTRANSFERASE 50 Units/L (12-78); ALBUMIN 2.2 g/dL (3.4-5.0); ALKALINE PHOSPHATASE 189 Units/L (46-116); ASPARTATE AMINO TRANSFERASE 29 Units/L (15-37); BLOOD UREA NITROGEN 7 mg/dL (7-18); CALCIUM 7.8 mg/dL (8.5-10.1); CARBON DIOXIDE 25.1 mmol/L (21-32); CHLORIDE 106 mmol/L (98-107); COR CA(FOR HYPOALB) 9.2 mg/dL (8.5-10.1); COR NA(FOR HYPERGLY) 143 mmol/L (136-145); SODIUM 142 mmol/L (136-145); TOTAL PROTEIN 5.3 g/dL (6.4-8.2); eGFR NON BLACK RACES > 60 (>60)
[2022-06-08] MEDS ORDERED: POTASSIUM CHL 40 MEQ/NS 0.45% 500 ML IV PRN (08:04)
[2022-06-08] MEDS ORDERED: POTASSIUM CHL 60 MEQ/NS 0.45% 500 ML IV PRN (08:04)
[2022-06-08] MEDS ORDERED: KLOR-CON PO PRN (08:04)
[2022-06-08] MEDS ORDERED: MICRO K EXTEN CAP 10 MEQ PO PRN (08:04)
[2022-06-08] MEDS ORDERED: K-DUR TAB 20 MEQ PO PRN (08:04)
[2022-06-08] MEDS ORDERED: POTASSIUM CHLORIDE LIQ 20 MEQ UDC PO PRN (08:04)
[2022-06-08] MEDS ORDERED: K-RIDER 10 MEQ/NS 100 ML 10 MEQ/100 ML BAG IV PRN (08:04)
[2022-06-08] MEDS: ZOCOR TAB 20 MG PO SCH (08:53)
[2022-06-08] MEDS: ASPIRIN EC 81 MG PO SCH (08:53)
[2022-06-08] MEDS: COZAAR PO SCH ×2 (08:53→21:20)
[2022-06-08] MEDS: LOPRESSOR TAB 25 MG PO SCH ×2 (08:55→21:21)
[2022-06-08] MEDS: PROTONIX TAB 40 MG PO SCH (08:55)
[2022-06-08] MEDS: ALBUMIN HUMAN 25%- 100 ML 100 ML IV SCH (08:55)
[2022-06-08] MEDS: LEVAQUIN PREMIX IV 500 MG 500 MG/100 ML BAG IV SCH (10:56)
[2022-06-08] MEDS: MAGNESIUM SULFATE 1 GRAM/100 mL PREMIX 1 G/100 ML BAG IV PRN ×4 (12:36→17:36)
--- NOTE | 2022-06-08 12:42 | PCM.PROG ---
Progress Note - Progress Note for Day of Date of Exam: 06/08/22 - Subjective Subjective: IS CURRENTLY BEING TREATED FOR AN INFECTED DECUBITUS ULCER, OPEN ABDOMINAL WALL WOUND, AND INTRACTABLE PAIN. HE IS DAY 4 STATUS POST DEBRIDEMENT OF SACRAL WOUNDS. HE IS ALSO RECENT S/P COLON RESECTION AND COLOSTOMY DUE TO STAGE 4 COLON CANCER. HE HAS A PMH OF HTN, DM II, HYPERLIPIDEM IA, AND GERD. TODAY, HE IS ALERT AND ORIENTED, LYING IN BED ON MORNING ROUNDS. HE CONTINUES TO COMPLAIN OF PAIN TO THE SACRAL AREA, BUT DOES REPORT SOME IMPROVEMENT TODAY. ON EXAMINATION, HEART IS REGULAR IN RATE AND RHYTHM. BILATERAL LUNGS NOTED WITH DIMINISHED LUNG SOUNDS THROUGHOUT. ABDOMEN IS ROUND, SOFT, AND NOTED WITH MILD TENDERNESS. COLOSTOMY NOTED WITH LIQUID STOOL. A WOUND VAC IS CURRENTLY IN PLACE OVER SACRAL WOUNDS. NO UPPER OR LOWER EXTREMITY EDEMA NOTED. HIS VITALS THIS MORNING ARE: 98.1-85-18-98%-136/69. HE IS CURRENTLY UTILIZING OXYGEN VIA NASAL CANNULA AT 2 LPM. LABS WERE OBTAINED. WBC 5.5, RBC 2.95, HGB 8.2, HCT 24.4, PLT COUNT 543, SODIUM 142, POTASSIUM 3.8, CHLORIDE 106, BUN 7, CREATININE 0.50, GLUCOSE 121, CALCIUM 7.8, MAGNESIUM 1.4, AST 29, ALT 50, ALK PHOS 189, TOTAL PROTEIN 5.3, ALBUMIN 2.2. WOULD CULTURES TO ABDOMEN ARE POSITIVE FOR GROWTH OF STAPHYLOCOCCUS INTERMEDIUS AND STAPHYLOCOCCUS AUREUS. SACRUM WOUND POSITIVE POSTIVE FOR GROWTH OF STAPH AUREUS, ENTEROCOCCUS FAECALIS, AND KLEBSIELLA PNEUMONIAE. HE IS CURRENTLY RECEIVING NORMAL SALINE AT 125 ML/HR, LEVAQUIN 500MG IV DAILY, ALBUMIN 25% IV DAILY, ECOTRIN 81MG PO DAILY, DILAUDID 1-2MG IV Q4H PRN, NOVOLIN R SLIDING SCALE, COZAAR 25MG PO BID, LOPRESSOR 25MG PO BID, PROTONIX 40MG PO DAILY, ZOCOR 20MG PO DAILY, AND PERCOCET 5/325MG PO Q6H PRN. WE WILL CONTINUE WITH CURRENT PLAN OF CARE TODAY. PHYSICAL THERAPY WILL WORK WITH HIM TODAY. WE WILL WORK ON GETTING HOME HEALTH SET UP FOR AFTER DISCHARGE. OTHERWISE, WE WILL FOLLOW-UP WITH AM LABS AND CONTINUE TO MONITOR. TIME SPENT ON CLINICAL ASSESSMENT, REVIWING LABS AND IMAGING, DECISION MAKING, AND DOCUMENTATION GREATER THAN 45 MINUTES. - Past Medical Family Social History Past Med/Fam/Surg Hx: No changes since H&P Allergies: Allergies Penicillins Allergy (Verified 06/01/22 17:00) - Review of Systems ROS: No change since H&P - Vital Signs and I&O's Vital Signs: Temperature 98.2 F Pulse Rate [Left Radial] 80 Pulse Rate 87 Respiratory Rate 18 Blood Pressure [Right Arm] 109/59 Blood Pressure [Left Arm] 139/68 Blood Pressure 134/79 O2 Sat by Pulse Oximetry 98 Intake and Output: Intake & Output 06/06/22 06/07/22 06/08/22 06/09/22 11:59 11:59 11:59 11:59 Intake Total 4317 / 4317 3991 / 3991 3576 / 3576 Output Total 2335 / 2335 1275 / 1275 1510 / 1510 Balance 1981 / 1981 2716 / 2716 2065 / 2065 - Physical Exam Oriented: Normal Eyes: Normal Ear: Normal Nose: Normal Throat: Normal Respiratory: Diminished Cardiovascular: Normal Auscultation: Bowel Sounds: Normal, Other (COLOSTOMY PRESENT WITH STOOL) Tenderness: Normal Skin: Decreased Turgur, Wound (2CM TUNNEL WOUND ALONG CENTRAL ABDOMINAL SCAR, LARGE SACRAL DECUBITUS WITH PURULENT, MALODOROUS DC) Musculoskeletal: Normal Psychiatric: Normal Mood Description: Calm Affect: Normal Speech Pattern: Clear, Appropriate - Laboratory and Diagnostics Result Diagrams: 06/08/22 05:08 06/08/22 05:08 Labs: 06/01/22 18:10 Blood Blood Culture - Final 06/01/22 18:00 Blood Blood Culture - Final 06/04/22 16:17 Sacral Wound Gram Stain - Final 06/04/22 16:17 Sacral Wound Culture - Final Staphylococcus Aureus Enterococcus Faecalis 06/02/22 10:10 Sacral Wound Gram Stain - Final 06/02/22 10:10 Sacral Wound Culture - Final Enterococcus Faecalis Klebsiella Pneumoniae 06/01/22 17:02 Abdomen Wound Culture - Final Staphylococcus Intermedius 06/01/22 17:25 Abdomen Wound Culture - Final Staphylococcus Aureus Laboratory WBC 5.5 X10^3/uL (3.6-10.0) 06/08/22 05:08 RBC 2.95 X10^6/uL (4.7-6.0) L 06/08/22 05:08 Hgb 8.2 g/dL (13.5-18.0) L 06/08/22 05:08 Hct 24.4 % (42.0-54.0) L 06/08/22 05:08 MCV 82.7 fL (80.0-100.0) 06/08/22 05:08 MCH 27.9 pg (27.0-34.0) 06/08/22 05:08 MCHC 33.7 g/dL (33.0-35.0) 06/08/22 05:08 RDW 19.2 % (11.6-16.5) H 06/08/22 05:08 Plt Count 543 X10^3/uL (150.0-450.0) H 06/08/22 05:08 MPV 7.3 fL (7.4-11.0) L 06/08/22 05:08 Neut % (Auto) 46.5 % (42.0-75.0) 06/08/22 05:08 Lymph % (Auto) 41.9 % (21.0-51.0) 06/08/22 05:08 [place] % (Auto) 7.3 % (0.0-13.0) 06/08/22 05:08 Eos % (Auto) 3.5 % (0.9-2.9) H 06/08/22 05:08 Baso % (Auto) 0.8 % (0.2-1.0) 06/08/22 05:08 Neut # (Auto) 2.5 x10^3/uL (2.2-4.8) 06/08/22 05:08 Lymph # (Auto) 2.3 X10^3/uL (1.3-2.9) 06/08/22 05:08 [place] # (Auto) 0.4 x10^3/uL (0.3-0.8) 06/08/22 05:08 Eos # (Auto) 0.2 x10^3/uL (0.0-0.2) 06/08/22 05:08 Baso # (Auto) 0.0 X10^3/uL (0.0-0.1) 06/08/22 05:08 Absolute Nucleated RBC 0.1 /100WBC 06/08/22 05:08 Sodium 142 mmol/L (136-145) 06/08/22 05:08 Corrected Sodium 143 mmol/L (136-145) 06/08/22 05:08 Potassium 3.8 mmol/L (3.5-5.1) 06/08/22 05:08 Chloride 106 mmol/L (98-107) 06/08/22 05:08 Carbon Dioxide 25.1 mmol/L (21-32) 06/08/22 05:08 BUN 7 mg/dL (7-18) 06/08/22 05:08 Creatinine 0.50 mg/dL (0.70-1.30) L 06/08/22 05:08 Est GFR (MDRD) Af Amer > 60 (>60) 06/08/22 05:08 Est GFR (MDRD) Non-Af > 60 (>60) 06/08/22 05:08 Glucose 121 mg/dL (65-99) H 06/08/22 05:08 POC Glucose (mg/dL) 165 mg/dL (65-99) H 06/08/22 11:05 Calcium 7.8 mg/dL (8.5-10.1) L 06/08/22 05:08 Corrected Calcium 9.2 mg/dL (8.5-10.1) 06/08/22 05:08 Magnesium 1.4 mg/dL (1.7-2.9) L 06/08/22 05:08 Total Bilirubin 0.30 mg/dL (0.2-1.0) 06/08/22 05:08 AST 29 Units/L (15-37) 06/08/22 05:08 ALT 50 Units/L (12-78) 06/08/22 05:08 Alkaline Phosphatase 189 Units/L (46-116) H 06/08/22 05:08 Total Protein 5.3 g/dL (6.4-8.2) L 06/08/22 05:08 Albumin 2.2 g/dL (3.4-5.0) L 06/08/22 05:08 Globulin 3.1 g/dL (2.5-4.5) 06/08/22 05:08 Albumin/Globulin Ratio 0.7 Ratio (1.1-2.1) L 06/08/22 05:08 SARS-CoV-2 (PCR) Negative (NEGATIVE) 06/01/22 17:15 Tissue Pathology To follow 06/04/22 16:17 - Plan (1) Sacral decubitus ulcer, stage III Status: Acute Plan: WOUND CARE, NORMAL SALINE AT 125 ML/HR, LEVAQUIN 500MG IV DAILY, ALBUMIN 25% IV DAILY, ECOTRIN 81MG PO DAILY, DILAUDID 1-2MG IV Q4H PRN, CONTINUE HOME MEDS (2) Open abdominal wall wound Status: Acute (3) H/O colon cancer, stage IV Status: Acute (4) Diabetes Status: Chronic Qualifiers: Diabetes mellitus type: type 2 Diabetes mellitus fci insulin use: with termite treater helper use Diabetes mellitus complication status: with other specified complication Qualified Code(s): E11.69 - Type 2 diabetes mellitus with other specified complication; Z79.4 - custodial (current) use of insulin (5) Hypertension Status: Chronic Qualifiers: Hypertension type: primary hypertension Qualified Code(s): I10 - Essential (primary) hypertension
--- NOTE | 2022-06-08 13:54 | DR.PROGNOT ---
Hospital Progress Notes - Progress Note for Day of: Progress Note Date: 06/08/22 - Chief Complaint Chief Complaint: feeling better today . c/o pain around the sacral ulcer . colostomy is functioning well . wound vac was applied already .. - Past Medical Family Social History Past Med/Fam/Surg Hx: No changes since H&P Allergies: Allergies Penicillins Allergy (Verified 06/01/22 17:00) - Review Of Systems ROS: No change since H&P - Vital Signs Vital Signs: Temperature 98.2 F Pulse Rate [Left Radial] 80 Pulse Rate 87 Respiratory Rate 18 Blood Pressure [Right Arm] 109/59 Blood Pressure [Left Arm] 139/68 Blood Pressure 134/79 O2 Sat by Pulse Oximetry 98 - Physical Exam Oriented: Normal Eyes: Normal Ear: Normal Nose: Normal Throat: Normal Respiratory: Diminished Cardiovascular: Normal GI:Auscultation: Normal, Other (COLOSTOMY PRESENT WITH STOOL) GI:Palpation: Normal GI: Tenderness: Normal Skin: Decreased Turgur, Wound (sacral ulcer is coverd with wound vac .) Musculoskeletal: Normal Psychiatric: Normal Mood Description: Calm Affect: Normal Speech Pattern: Clear, Appropriate - Laboratory and Diagnostics Result Diagrams: 06/08/22 05:08 06/08/22 05:08 Labs: 06/01/22 18:10 Blood Blood Culture - Final 06/01/22 18:00 Blood Blood Culture - Final 06/04/22 16:17 Sacral Wound Gram Stain - Final 06/04/22 16:17 Sacral Wound Culture - Final Staphylococcus Aureus Enterococcus Faecalis 06/02/22 10:10 Sacral Wound Gram Stain - Final 06/02/22 10:10 Sacral Wound Culture - Final Enterococcus Faecalis Klebsiella Pneumoniae 06/01/22 17:02 Abdomen Wound Culture - Final Staphylococcus Intermedius 06/01/22 17:25 Abdomen Wound Culture - Final Staphylococcus Aureus Laboratory WBC 5.5 X10^3/uL (3.6-10.0) 06/08/22 05:08 RBC 2.95 X10^6/uL (4.7-6.0) L 06/08/22 05:08 Hgb 8.2 g/dL (13.5-18.0) L 06/08/22 05:08 Hct 24.4 % (42.0-54.0) L 06/08/22 05:08 MCV 82.7 fL (80.0-100.0) 06/08/22 05:08 MCH 27.9 pg (27.0-34.0) 06/08/22 05:08 MCHC 33.7 g/dL (33.0-35.0) 06/08/22 05:08 RDW 19.2 % (11.6-16.5) H 06/08/22 05:08 Plt Count 543 X10^3/uL (150.0-450.0) H 06/08/22 05:08 MPV 7.3 fL (7.4-11.0) L 06/08/22 05:08 Neut % (Auto) 46.5 % (42.0-75.0) 06/08/22 05:08 Lymph % (Auto) 41.9 % (21.0-51.0) 06/08/22 05:08 [place] % (Auto) 7.3 % (0.0-13.0) 06/08/22 05:08 Eos % (Auto) 3.5 % (0.9-2.9) H 06/08/22 05:08 Baso % (Auto) 0.8 % (0.2-1.0) 06/08/22 05:08 Neut # (Auto) 2.5 x10^3/uL (2.2-4.8) 06/08/22 05:08 Lymph # (Auto) 2.3 X10^3/uL (1.3-2.9) 06/08/22 05:08 [place] # (Auto) 0.4 x10^3/uL (0.3-0.8) 06/08/22 05:08 Eos # (Auto) 0.2 x10^3/uL (0.0-0.2) 06/08/22 05:08 Baso # (Auto) 0.0 X10^3/uL (0.0-0.1) 06/08/22 05:08 Absolute Nucleated RBC 0.1 /100WBC 06/08/22 05:08 Sodium 142 mmol/L (136-145) 06/08/22 05:08 Corrected Sodium 143 mmol/L (136-145) 06/08/22 05:08 Potassium 3.8 mmol/L (3.5-5.1) 06/08/22 05:08 Chloride 106 mmol/L (98-107) 06/08/22 05:08 Carbon Dioxide 25.1 mmol/L (21-32) 06/08/22 05:08 BUN 7 mg/dL (7-18) 06/08/22 05:08 Creatinine 0.50 mg/dL (0.70-1.30) L 06/08/22 05:08 Est GFR (MDRD) Af Amer > 60 (>60) 06/08/22 05:08 Est GFR (MDRD) Non-Af > 60 (>60) 06/08/22 05:08 Glucose 121 mg/dL (65-99) H 06/08/22 05:08 POC Glucose (mg/dL) 165 mg/dL (65-99) H 06/08/22 11:05 Calcium 7.8 mg/dL (8.5-10.1) L 06/08/22 05:08 Corrected Calcium 9.2 mg/dL (8.5-10.1) 06/08/22 05:08 Magnesium 1.4 mg/dL (1.7-2.9) L 06/08/22 05:08 Total Bilirubin 0.30 mg/dL (0.2-1.0) 06/08/22 05:08 AST 29 Units/L (15-37) 06/08/22 05:08 ALT 50 Units/L (12-78) 06/08/22 05:08 Alkaline Phosphatase 189 Units/L (46-116) H 06/08/22 05:08 Total Protein 5.3 g/dL (6.4-8.2) L 06/08/22 05:08 Albumin 2.2 g/dL (3.4-5.0) L 06/08/22 05:08 Globulin 3.1 g/dL (2.5-4.5) 06/08/22 05:08 Albumin/Globulin Ratio 0.7 Ratio (1.1-2.1) L 06/08/22 05:08 SARS-CoV-2 (PCR) Negative (NEGATIVE) 06/01/22 17:15 Tissue Pathology To follow 06/04/22 16:17 - Assessment and Plan 1: stage lll sactral ulcer 7 x 4 cm .. incisional wounds . same local care , IV ABT .. wound Vac in am . nutritional support and OOB . - Problem Patient Problems: Patient Problems Sacral decubitus ulcer, stage III (Acute) L89.153 H/O colon cancer, stage IV (Acute) Z85.038 Open abdominal wall wound (Acute) S31.109A Diabetes (Chronic) E11.9 Hypertension (Chronic) I10
[2022-06-08] MEDS: NovoLIN R (or HumuLIN R) SUBCUT PRN ×2 (16:43→21:22)
[2022-06-08] MEDS: SNACK - Diabetic Appropriate PO SCH (21:23)
[2022-06-09] MEDS: DILAUDID INJ IVP PRN ×3 (01:51→21:00)
[2022-06-09] MEDS: NS 1,000 ML IV 1,000 ML IV SCH ×4 (05:52→23:00)
[2022-06-09 06:42] LABS: BASOPHILS % (AUTO) 0.1 % (0.2-1.0); EOSINOPHILS # (AUTO) 0.2 x10^3/uL (0.0-0.2); EOSINOPHILS % (AUTO) 2.9 % (0.9-2.9); HEMATOCRIT 26.4 % (42.0-54.0); HEMOGLOBIN 8.8 g/dL (13.5-18.0); LYMPHOCYTES # (AUTO) 2.6 X10^3/uL (1.3-2.9); LYMPHOCYTES % (AUTO) 41.2 % (21.0-51.0); MEAN CORPUSCULAR HEMOGLOBIN 27.5 pg (27.0-34.0); MEAN CORPUSCULAR HGB CONC 33.3 g/dL (33.0-35.0); MEAN CORPUSCULAR VOLUME 82.6 fL (80.0-100.0); MEAN PLATELET VOLUME 6.8 fL (7.4-11.0); MONOCYTES # (AUTO) 0.5 x10^3/uL (0.3-0.8); MONOCYTES % (AUTO) 7.7 % (0.0-13.0); NEUTROPHILS % (AUTO) 48.1 % (42.0-75.0); RED BLOOD COUNT 3.19 X10^6/uL (4.7-6.0); RED CELL DISTRIBUTION WIDTH 19.1 % (11.6-16.5); WHITE BLOOD COUNT 6.2 X10^3/uL (3.6-10.0)
[2022-06-09 06:56] LABS: ALANINE AMINOTRANSFERASE 37 Units/L (12-78); ALBUMIN 2.5 g/dL (3.4-5.0); ALKALINE PHOSPHATASE 171 Units/L (46-116); ASPARTATE AMINO TRANSFERASE 21 Units/L (15-37); BLOOD UREA NITROGEN 5 mg/dL (7-18); CALCIUM 7.9 mg/dL (8.5-10.1); CARBON DIOXIDE 30.2 mmol/L (21-32); CHLORIDE 106 mmol/L (98-107); COR CA(FOR HYPOALB) 9.1 mg/dL (8.5-10.1); CREATININE 0.46 mg/dL (0.70-1.30); MAGNESIUM 1.9 mg/dL (1.7-2.9); SODIUM 143 mmol/L (136-145); TOTAL PROTEIN 5.8 g/dL (6.4-8.2); eGFR NON BLACK RACES > 60 (>60)
[2022-06-09] MEDS: ALBUMIN HUMAN 25%- 100 ML 100 ML IV SCH (07:59)
[2022-06-09] MEDS: PERCOCET TAB 5/325 MG PO PRN ×2 (08:01→16:56)
[2022-06-09] MEDS: PROTONIX TAB 40 MG PO SCH (08:01)
[2022-06-09] MEDS: ZOCOR TAB 20 MG PO SCH (08:01)
[2022-06-09] MEDS: LOPRESSOR TAB 25 MG PO SCH ×2 (08:02→20:57)
[2022-06-09] MEDS: COZAAR PO SCH ×2 (08:02→20:58)
[2022-06-09] MEDS: ASPIRIN EC 81 MG PO SCH (08:02)
[2022-06-09] MEDS: LEVAQUIN PREMIX IV 500 MG 500 MG/100 ML BAG IV SCH (10:16)
[2022-06-09] MEDS: MAGNESIUM SULFATE 1 GRAM/100 mL PREMIX 1 G/100 ML BAG IV PRN ×2 (11:47→15:29)
--- NOTE | 2022-06-09 15:53 | RAD ---
HISTORYLow [id number] chestCOMPARISONCT chest 02/27/2022FINDINGSThe heart is mildly enlarged although the margins are partly obscured by extensive coarse bilateral pulmonary nodularity and infiltrates. The pulmonary vascular structures are obscured. There is no definite pneumothorax or large pleural effusion. A left IJ catheter extends to the SVC.IMPRESSIONExtensive bilateral nodular infiltrates may represent inflammatory disease or metastases. Chest CT from 02/27/2022 described changes in the lungs and mediastinum concerning for malignancy. Correlate clinically with follow-up.Electronically signed by: BERNADETTE POP (Jun 09, 2022 15:51:29)
[2022-06-09 16:04] LABS: ABG ALLEN TEST POS; ABG BASE EXCESS 5.2 mmol/L (-2.0-2.0)
[2022-06-09] MEDS: NovoLIN R (or HumuLIN R) SUBCUT PRN (20:56)
[2022-06-09] MEDS: SNACK - Diabetic Appropriate PO SCH (20:59)
[2022-06-10] MEDS: PERCOCET TAB 5/325 MG PO PRN ×2 (05:20→13:04)
[2022-06-10] MEDS: NS 1,000 ML IV 1,000 ML IV SCH ×2 (05:23→18:45)
[2022-06-10 06:25] LABS: BASOPHILS % (AUTO) 0.3 % (0.2-1.0); EOSINOPHILS # (AUTO) 0.2 x10^3/uL (0.0-0.2); EOSINOPHILS % (AUTO) 1.9 % (0.9-2.9); HEMATOCRIT 26.7 % (42.0-54.0); HEMOGLOBIN 8.9 g/dL (13.5-18.0); LYMPHOCYTES # (AUTO) 3.8 X10^3/uL (1.3-2.9); LYMPHOCYTES % (AUTO) 40.2 % (21.0-51.0); MEAN CORPUSCULAR HEMOGLOBIN 27.6 pg (27.0-34.0); MEAN CORPUSCULAR HGB CONC 33.4 g/dL (33.0-35.0); MEAN CORPUSCULAR VOLUME 82.5 fL (80.0-100.0); MEAN PLATELET VOLUME 6.5 fL (7.4-11.0); MONOCYTES # (AUTO) 0.7 x10^3/uL (0.3-0.8); MONOCYTES % (AUTO) 7.7 % (0.0-13.0); NEUTROPHILS # (AUTO) 4.7 x10^3/uL (2.2-4.8); NEUTROPHILS % (AUTO) 49.9 % (42.0-75.0); RED BLOOD COUNT 3.24 X10^6/uL (4.7-6.0); WHITE BLOOD COUNT 9.4 X10^3/uL (3.6-10.0)
[2022-06-10 06:46] LABS: ALANINE AMINOTRANSFERASE 29 Units/L (12-78); ALBUMIN 2.7 g/dL (3.4-5.0); ALKALINE PHOSPHATASE 159 Units/L (46-116); BLOOD UREA NITROGEN 8 mg/dL (7-18); CARBON DIOXIDE 26.1 mmol/L (21-32); CHLORIDE 106 mmol/L (98-107); COR NA(FOR HYPERGLY) 142 mmol/L (136-145); CREATININE 0.47 mg/dL (0.70-1.30); SODIUM 141 mmol/L (136-145); TOTAL PROTEIN 5.9 g/dL (6.4-8.2); eGFR NON BLACK RACES > 60 (>60)
[2022-06-10 07:13] LABS: ASPARTATE AMINO TRANSFERASE 19 Units/L (15-37)
[2022-06-10] MEDS: PROTONIX TAB 40 MG PO SCH (10:06)
[2022-06-10] MEDS: COZAAR PO SCH ×2 (10:06→20:42)
[2022-06-10] MEDS: ASPIRIN EC 81 MG PO SCH (10:06)
[2022-06-10] MEDS: LOPRESSOR TAB 25 MG PO SCH ×2 (10:07→20:42)
[2022-06-10] MEDS: LEVAQUIN PREMIX IV 500 MG 500 MG/100 ML BAG IV SCH (10:07)
[2022-06-10] MEDS: ZOCOR TAB 20 MG PO SCH (10:07)
[2022-06-10] MEDS: ALBUMIN HUMAN 25%- 100 ML 100 ML IV SCH (10:08)
[2022-06-10] MEDS: DILAUDID INJ IVP PRN (10:18)
--- NOTE | 2022-06-10 10:37 | DR.PROGNOT ---
Hospital Progress Notes - Progress Note for Day of: Progress Note Date: 06/10/22 - Chief Complaint Chief Complaint: feeling better today . c/o pain around the sacral ulcer . colostomy is functioning well . wound vac is functioning well. wound culture is Staph Aureus and Enterococcus Fecalis . both sensitive to Cipro .. - Past Medical Family Social History Past Med/Fam/Surg Hx: No changes since H&P Allergies: Allergies Penicillins Allergy (Verified 06/01/22 17:00) - Review Of Systems ROS: No change since H&P - Vital Signs Vital Signs: Temperature 98.0 F Pulse Rate [Left Radial] 98 Pulse Rate 87 Respiratory Rate 18 Blood Pressure [Right Arm] 145/78 Blood Pressure [Left Arm] 139/68 Blood Pressure 134/79 O2 Sat by Pulse Oximetry 96 - Physical Exam Oriented: Normal Eyes: Normal Ear: Normal Nose: Normal Throat: Normal Respiratory: Diminished Cardiovascular: Normal GI:Auscultation: Normal, Other (COLOSTOMY PRESENT WITH STOOL) GI:Palpation: Normal GI: Tenderness: Normal Skin: Decreased Turgur, Wound (sacral ulcer is coverd with wound vac .) Musculoskeletal: Normal Psychiatric: Normal Mood Description: Calm Affect: Normal Speech Pattern: Clear, Appropriate - Laboratory and Diagnostics Result Diagrams: 06/10/22 06:12 06/10/22 06:12 Labs: 06/01/22 18:10 Blood Blood Culture - Final 06/01/22 18:00 Blood Blood Culture - Final 06/04/22 16:17 Sacral Wound Gram Stain - Final 06/04/22 16:17 Sacral Wound Culture - Final Staphylococcus Aureus Enterococcus Faecalis 06/02/22 10:10 Sacral Wound Gram Stain - Final 06/02/22 10:10 Sacral Wound Culture - Final Enterococcus Faecalis Klebsiella Pneumoniae 06/01/22 17:02 Abdomen Wound Culture - Final Staphylococcus Intermedius 06/01/22 17:25 Abdomen Wound Culture - Final Staphylococcus Aureus Laboratory WBC 9.4 X10^3/uL (3.6-10.0) 06/10/22 06:12 RBC 3.24 X10^6/uL (4.7-6.0) L 06/10/22 06:12 Hgb 8.9 g/dL (13.5-18.0) L 06/10/22 06:12 Hct 26.7 % (42.0-54.0) L 06/10/22 06:12 MCV 82.5 fL (80.0-100.0) 06/10/22 06:12 MCH 27.6 pg (27.0-34.0) 06/10/22 06:12 MCHC 33.4 g/dL (33.0-35.0) 06/10/22 06:12 RDW 19.0 % (11.6-16.5) H 06/10/22 06:12 Plt Count 666 X10^3/uL (150.0-450.0) H 06/10/22 06:12 MPV 6.5 fL (7.4-11.0) L 06/10/22 06:12 Neut % (Auto) 49.9 % (42.0-75.0) 06/10/22 06:12 Lymph % (Auto) 40.2 % (21.0-51.0) 06/10/22 06:12 [place] % (Auto) 7.7 % (0.0-13.0) 06/10/22 06:12 Eos % (Auto) 1.9 % (0.9-2.9) 06/10/22 06:12 Baso % (Auto) 0.3 % (0.2-1.0) 06/10/22 06:12 Neut # (Auto) 4.7 x10^3/uL (2.2-4.8) 06/10/22 06:12 Lymph # (Auto) 3.8 X10^3/uL (1.3-2.9) H 06/10/22 06:12 [place] # (Auto) 0.7 x10^3/uL (0.3-0.8) 06/10/22 06:12 Eos # (Auto) 0.2 x10^3/uL (0.0-0.2) 06/10/22 06:12 Baso # (Auto) 0.0 X10^3/uL (0.0-0.1) 06/10/22 06:12 Absolute Nucleated RBC 0.0 /100WBC 06/10/22 06:12 Sample Site Lrad 06/09/22 16:00 ABG pH 7.480 (7.35-7.45) H 06/09/22 16:00 ABG pCO2 39.0 mmHg (35.0-45.0) 06/09/22 16:00 ABG pO2 67.0 mmHg (80.0-100.0) L 06/09/22 16:00 ABG HCO3 29.0 mmol/L (22-26) H 06/09/22 16:00 ABG O2 Saturation 94.0 % (90-100) 06/09/22 16:00 ABG Base Excess 5.2 mmol/L (-2.0-2.0) H 06/09/22 16:00 Ronni Test Pos 06/09/22 16:00 A-a Gradient 84.0 mmHg 06/09/22 16:00 FiO2 28.0 06/09/22 16:00 Blood Gas Comments Rasheed well ms 06/09/22 16:00 Sodium 141 mmol/L (136-145) 06/10/22 06:12 Corrected Sodium 142 mmol/L (136-145) 06/10/22 06:12 Potassium 4.1 mmol/L (3.5-5.1) 06/10/22 06:12 Chloride 106 mmol/L (98-107) 06/10/22 06:12 Carbon Dioxide 26.1 mmol/L (21-32) 06/10/22 06:12 BUN 8 mg/dL (7-18) 06/10/22 06:12 Creatinine 0.47 mg/dL (0.70-1.30) L 06/10/22 06:12 Est GFR (MDRD) Af Amer > 60 (>60) 06/10/22 06:12 Est GFR (MDRD) Non-Af > 60 (>60) 06/10/22 06:12 Glucose 142 mg/dL (65-99) H 06/10/22 06:12 POC Glucose (mg/dL) 135 mg/dL (65-99) H 06/10/22 05:25 Calcium 8.0 mg/dL (8.5-10.1) L 06/10/22 06:12 Corrected Calcium 9.0 mg/dL (8.5-10.1) 06/10/22 06:12 Magnesium 1.9 mg/dL (1.7-2.9) 06/09/22 06:07 Total Bilirubin 0.40 mg/dL (0.2-1.0) 06/10/22 06:12 AST 19 Units/L (15-37) 06/10/22 06:12 ALT 29 Units/L (12-78) 06/10/22 06:12 Alkaline Phosphatase 159 Units/L (46-116) H 06/10/22 06:12 Total Protein 5.9 g/dL (6.4-8.2) L 06/10/22 06:12 Albumin 2.7 g/dL (3.4-5.0) L 06/10/22 06:12 Globulin 3.2 g/dL (2.5-4.5) 06/10/22 06:12 Albumin/Globulin Ratio 0.8 Ratio (1.1-2.1) L 06/10/22 06:12 SARS-CoV-2 (PCR) Negative (NEGATIVE) 06/01/22 17:15 Tissue Pathology To follow 06/04/22 16:17 - Assessment and Plan 1: stage lll sactral ulcer 7 x 4 cm .. incisional wounds abdominal wall.. same local care and wound vac ., IV ABT ..may change to oral Cipro 500 BID. nutritional support and OOB. f/u in 10 days - Problem Patient Problems: Patient Problems Sacral decubitus ulcer, stage III (Acute) L89.153 H/O colon cancer, stage IV (Acute) Z85.038 Open abdominal wall wound (Acute) S31.109A Diabetes (Chronic) E11.9 Hypertension (Chronic) I10
[2022-06-10] MEDS ORDERED: LASIX IVP ONE (12:00)
[2022-06-10] MEDS ORDERED: DUONEB 0.5 MG/3 MG (3 mL) NEB ONE (12:06)
[2022-06-10] MEDS: DUONEB 0.5 MG/3 MG (3 mL) NEB SCH ×3 (12:24→21:00)
[2022-06-10] MEDS: SNACK - Diabetic Appropriate PO SCH (20:00)
[2022-06-10] MEDS: NovoLIN R (or HumuLIN R) SUBCUT PRN (20:41)
[2022-06-11] MEDS: DILAUDID INJ IVP PRN (01:28)
[2022-06-11] MEDS: DUONEB 0.5 MG/3 MG (3 mL) NEB SCH ×2 (05:43→17:58)
[2022-06-11 05:53] LABS: BASOPHILS # (AUTO) 0.1 X10^3/uL (0.0-0.1); BASOPHILS % (AUTO) 1.2 % (0.2-1.0); EOSINOPHILS # (AUTO) 0.1 x10^3/uL (0.0-0.2); EOSINOPHILS % (AUTO) 1.9 % (0.9-2.9); HEMATOCRIT 25.4 % (42.0-54.0); HEMOGLOBIN 8.6 g/dL (13.5-18.0); LYMPHOCYTES # (AUTO) 3.4 X10^3/uL (1.3-2.9); LYMPHOCYTES % (AUTO) 45.5 % (21.0-51.0); MEAN CORPUSCULAR VOLUME 82.3 fL (80.0-100.0); MEAN PLATELET VOLUME 6.6 fL (7.4-11.0); MONOCYTES # (AUTO) 0.6 x10^3/uL (0.3-0.8); MONOCYTES % (AUTO) 8.4 % (0.0-13.0); NEUTROPHILS # (AUTO) 3.2 x10^3/uL (2.2-4.8); RED BLOOD COUNT 3.09 X10^6/uL (4.7-6.0); RED CELL DISTRIBUTION WIDTH 19.1 % (11.6-16.5); WHITE BLOOD COUNT 7.5 X10^3/uL (3.6-10.0)
[2022-06-11 06:03] LABS: ALANINE AMINOTRANSFERASE 25 Units/L (12-78); ALBUMIN 2.7 g/dL (3.4-5.0); ALKALINE PHOSPHATASE 144 Units/L (46-116); ASPARTATE AMINO TRANSFERASE 16 Units/L (15-37); BLOOD UREA NITROGEN 10 mg/dL (7-18); CALCIUM 8.1 mg/dL (8.5-10.1); CARBON DIOXIDE 32.1 mmol/L (21-32); CHLORIDE 104 mmol/L (98-107); COR CA(FOR HYPOALB) 9.1 mg/dL (8.5-10.1); COR NA(FOR HYPERGLY) 143 mmol/L (136-145); CREATININE 0.53 mg/dL (0.70-1.30); SODIUM 143 mmol/L (136-145); eGFR NON BLACK RACES > 60 (>60)
[2022-06-11] MEDS: PERCOCET TAB 5/325 MG PO PRN ×2 (08:48→15:42)
[2022-06-11] MEDS: ASPIRIN EC 81 MG PO SCH (09:30)
[2022-06-11] MEDS: LEVAQUIN PREMIX IV 500 MG 500 MG/100 ML BAG IV SCH (09:30)
[2022-06-11] MEDS: COZAAR PO SCH (09:30)
[2022-06-11] MEDS: ALBUMIN HUMAN 25%- 100 ML 100 ML IV SCH (10:39)
[2022-06-11] MEDS: LOPRESSOR TAB 25 MG PO SCH (10:40)
[2022-06-11] MEDS: ZOCOR TAB 20 MG PO SCH (10:41)
[2022-06-11] MEDS: PROTONIX TAB 40 MG PO SCH (10:41)
[2022-06-11] MEDS: NovoLIN R (or HumuLIN R) SUBCUT PRN (11:49)
[2022-06-11] MEDS ORDERED: NS IRRIGATION* 500 ML IR ONE (16:22)
[2022-06-11 17:00] VITALS: BP 143/72
== END 2022-06-11 17:30 | disposition home health service (06) | DRG 593 ==
LOC: MED/SURG
PROVIDERS: ADMIT Internal Medicine; ATTEND Internal Medicine
DX: S31.109A Unspecified open wound of abdominal wall, unspecified quadrant without penetration into peritoneal cavity, initial encounter; L89.153 Pressure ulcer of sacral region, stage 3; I10 Essential (primary) hypertension; Z93.3 Colostomy status; E11.65 Type 2 diabetes mellitus with hyperglycemia; R26.89 Other abnormalities of gait and mobility; C18.9 Malignant neoplasm of colon, unspecified; Z99.81 Dependence on supplemental oxygen; Z79.4 Long term (current) use of insulin; B95.2 Enterococcus as the cause of diseases classified elsewhere; K21.9 Gastro-esophageal reflux disease without esophagitis; E78.2 Mixed hyperlipidemia; X58.XXXA Exposure to other specified factors, initial encounter; B96.1 Klebsiella pneumoniae [K. pneumoniae] as the cause of diseases classified elsewhere; B95.7 Other staphylococcus as the cause of diseases classified elsewhere; B95.61 Methicillin susceptible Staphylococcus aureus infection as the cause of diseases classified elsewhere; K64.0 First degree hemorrhoids

== ENCOUNTER 2022-07-02 13:51 | Inpatient (IN) ==
[2022-07-02] MEDS ORDERED: NS 1,000 ML IV 1,000 ML IV ONE ×2 (14:06→16:05)
[2022-07-02 14:28] LABS: BASOPHILS # (AUTO) 0.1 X10^3/uL (0.0-0.1); BASOPHILS % (AUTO) 0.8 % (0.2-1.0); EOSINOPHILS # (AUTO) 0.2 x10^3/uL (0.0-0.2); EOSINOPHILS % (AUTO) 1.2 % (0.9-2.9); HEMATOCRIT 40.1 % (42.0-54.0); LYMPHOCYTES # (AUTO) 5.5 X10^3/uL (1.3-2.9); LYMPHOCYTES % (AUTO) 39.2 % (21.0-51.0); MEAN CORPUSCULAR HEMOGLOBIN 27.1 pg (27.0-34.0); MEAN CORPUSCULAR HGB CONC 32.4 g/dL (33.0-35.0); MEAN CORPUSCULAR VOLUME 83.8 fL (80.0-100.0); MEAN PLATELET VOLUME 8.3 fL (7.4-11.0); MONOCYTES # (AUTO) 0.9 x10^3/uL (0.3-0.8); NEUTROPHILS # (AUTO) 7.5 x10^3/uL (2.2-4.8); NEUTROPHILS % (AUTO) 52.8 % (42.0-75.0); RED BLOOD COUNT 4.79 X10^6/uL (4.7-6.0); RED CELL DISTRIBUTION WIDTH 17.9 % (11.6-16.5); WHITE BLOOD COUNT 14.2 X10^3/uL (3.6-10.0)
[2022-07-02 14:40] LABS: ALANINE AMINOTRANSFERASE 14 Units/L (12-78); ALBUMIN 3.8 g/dL (3.4-5.0); ALKALINE PHOSPHATASE 111 Units/L (46-116); ASPARTATE AMINO TRANSFERASE 14 Units/L (15-37); BLOOD UREA NITROGEN 83 mg/dL (7-18); CALCIUM 9.4 mg/dL (8.5-10.1); CHLORIDE 96 mmol/L (98-107); CREATINE KINASE 19 Units/L (39-308); CREATININE 3.89 mg/dL (0.70-1.30); SODIUM 131 mmol/L (136-145); TOTAL PROTEIN 8.4 g/dL (6.4-8.2); eGFR NON BLACK RACES 16 (>60)
[2022-07-02 14:41] LABS: LACTIC ACID 4.8 mmol/L (0.4-2.0)
--- NOTE | 2022-07-02 15:15 | DR.GENAD ---
HPI Time Seen Time Seen by Provider: 07/02/22 15:14 PCP Primary Care Physician: FILIBERTO HPI Comment HPI Comment: PATIENT IS 66YR OLD MALE IN ER VIA EMS FOR LOW BLOOD PRESSURE AND DIZZINESS. HE WAS NOTED TO HAVE LOW BP BY NURSE IN [place]. HAS HISTORY OF HYPERTENSION AND TOOK HIS BP MED TODAY. DENIES FEVER, NAUSEA OR VOMITING. DENIES DYSURIA OR CHEST PAIN. Complaint/Symptoms Chief Complaint Doctors Comments: LOW BLOOD PRESSURE AND DIZZINESS. Chief Complaint:: PT BROUGHT IN BY [facility] WITH C/O OF LOW BP. EMS STATES THAT HIS NURSE CAME TO SEE HIM AND SHE CHECKED HIS VS AND HIS BP WAS LOW. PT STATES HE WAS STARTED ON SOME NEW MEDICINE AND NOT SURE IF THAT HAS ANYTHING TO DO WITH IT. STATES HE FEELS FINE BUT STATES HE DID GET A LITTLE DIZZY THIS MORNING. COVID-19 Coronavirus risk:travel/contact w/high risk person: No Has patient experienced Coronavirus symptoms: No Nurses notes reviewed Nurses Notes Review: Yes Source History Provided: Patient Mode of Arrival Mode of Arrival: EMS Timing Onset of Chief Complaint: 07/02/22 PMH PMH Past Medical History: Yes Past Medical History: Arthritis, Diabetes and Hypertension Past Medical History Comment: STAGE 4 COLON CANCER Past Surgical History: Yes Surgical History: Bowel Resection Family History History of Family Medical Conditions: Yes Family Medical History: Diabetes Mellitus and Hypertension Social History Does patient currently use any type of tobacco product: Yes Have you used tobacco products in the last 12 months: Yes Type of Tobacco Use: Cigarettes Does any household member use tobacco: Yes Alcohol Use: None Do you use any recreational Drugs:: No Lives With: Alone Lives Where: Home Travel Risk Coronavirus risk:travel/contact w/high risk person: No Has patient experienced Coronavirus symptoms: No Infectious screening In the last 2 months have you had wt loss of >10#?: NO Have you had fever, night sweats or hemotysis?: No Have you traveled outside the country in the last 6 months?: No Isolation: Standard ROS Review of Systems Constitutional: See HPI, Weakness and Fatigue; negative Fever Eyes: No Symptoms Reported and See HPI; negative Blurred Vision ENTM: No Symptoms Reported and See HPI; negative Nose Discharge or Nose Congestion Respiratoy: No Symptoms Reported and See HPI; negative Short of Breath or Wheezing Cardiovascular: No Symptoms Reported and See HPI; negative Chest Pain Gastrointestinal/Abdominal: No Symptoms Reported; negative Abdominal Pain, Diarrhea, Nausea or Vomiting Genitourinary: No Symptoms Reported and See HPI; negative Dysuria Neurological: See HPI, Weakness and Dizziness; negative Headache Musculoskeletal: No Symptoms Reported and See HPI Integumentary: No Symptoms Reported, See HPI and Dryness Hematologic/Lymphatic: See HPI and Easy Bruising Endocrine: See HPI and Decreased Appetite; negative Increased Thirst or Increased Urine Psychiatric: No Symptoms Reported and See HPI All Other Systems: Reviewed and Negative PE Vital Signs Vitals: Temperature 98.1 F Pulse Rate 108 Respiratory Rate 13 Blood Pressure [Right Arm] 143/72 Blood Pressure 76/39 O2 Sat by Pulse Oximetry 100 General Limitations: No Limitations General Appearance: Alert and In No Apparent Distress Head Head Exam: Normal Inspection and Atraumatic Eyes Eye exam: Normal Appearance; negative Scleral Icterus or Conjunctival Injection ENT ENT Exam: Normal Exam, Normal Oropharynx, Normal External Ear Exam and TM's Normal Bilaterally External Ear Exam: Normal External Inspection; negative Mastoid Tenderness TM/Canal Exam: Bilateral: Normal Nose Exam: Normal Nose Exam Mouth Exam: negative Lip Swelling or Tongue Swelling Throat Exam: Normal Inspection; negative Tonsillar Erythema, Tonsillomegaly or Tonsillar Exudate Neck Neck Exam: Normal Inspection and Trachea Midline; negative Tenderness Chest Chest Inspection: Normal Inspection and Symmetric Chest Wall Rise; negative Tenderness Respiratory Respiratory Exam: Normal Lung Sounds Bilat; negative Accessory Muscle Use, Chest Wall Tenderness or Respiratory Distress Respiratory Exam: Bilateral: Rhonchi Cardiovascular Cardiovascular Exam: Regular Rate, Normal Rhythm and Normal Heart Sounds; negative Systolic Murmur or Diastolic Murmur Abdominal Exam Abdominal Exam: Normal Inspection, Normal Bowel Sounds and Soft; negative Tenderness Extremities Extremities Exam: Normal Inspection and Normal Capillary Refill Back Back Exam: Normal Inspection; negative (R) CVA Tenderness or (L) CVA Tenderness Neurologic Neurological Exam: Alert and Oriented X3; negative Motor Sensory Deficit Psychiatric Psychiatric Exam: Normal Affect and Normal Mood Skin Skin Exam: Dry MDM Differential Diagnosis Differential Diagnosis: HYPOTENSION, DEHYDRATION, UTI, SEPSIS, ELECTROLYTE IMBALANCE. COURSE Treatment Treatment: SEE ORDERS DONE WHILE PATIENT WAS IN ER. PATIENT GIVEN 2 LITER NS IV BOLUS. BP STILL LOW. LEVOPHED STARTED AND BP IMPROVING. D50 IV AND R INSULIN 5 UNITS IV AND POTASSIUM DECRESING. PATIENT ADMITTED FOR FURTHER EVALUATION. Consultation Consultation Comments: DISCUSSED PATIENT WITH DR. DE LOS SANTOS. HE WILL ADMIT PATIENT. Education/Counseling Education/Counseling: Patient and Family Educated On: Treatment and Diagnosis ROR Labs Reviewed Laboratory Results Reviewed?: Yes Result Diagrams: 07/06/22 04:15 07/06/22 08:38 Laboratory: 07/02/22 16:50 Blood Blood Culture - Preliminary 07/02/22 14:15 Blood Blood Culture - Preliminary WBC 14.2 X10^3/uL (3.6-10.0) H 07/02/22 14:15 RBC 4.79 X10^6/uL (4.7-6.0) 07/02/22 14:15 Hgb 13.0 g/dL (13.5-18.0) L 07/02/22 14:15 Hct 40.1 % (42.0-54.0) L 07/02/22 14:15 MCV 83.8 fL (80.0-100.0) 07/02/22 14:15 MCH 27.1 pg (27.0-34.0) 07/02/22 14:15 MCHC 32.4 g/dL (33.0-35.0) L 07/02/22 14:15 RDW 17.9 % (11.6-16.5) H 07/02/22 14:15 Plt Count 526 X10^3/uL (150.0-450.0) H 07/02/22 14:15 MPV 8.3 fL (7.4-11.0) 07/02/22 14:15 Neut % (Auto) 52.8 % (42.0-75.0) 07/02/22 14:15 Lymph % (Auto) 39.2 % (21.0-51.0) 07/02/22 14:15 [place] % (Auto) 6.0 % (0.0-13.0) 07/02/22 14:15 Eos % (Auto) 1.2 % (0.9-2.9) 07/02/22 14:15 Baso % (Auto) 0.8 % (0.2-1.0) 07/02/22 14:15 Neut # (Auto) 7.5 x10^3/uL (2.2-4.8) H 07/02/22 14:15 Lymph # (Auto) 5.5 X10^3/uL (1.3-2.9) H 07/02/22 14:15 [place] # (Auto) 0.9 x10^3/uL (0.3-0.8) H 07/02/22 14:15 Eos # (Auto) 0.2 x10^3/uL (0.0-0.2) 07/02/22 14:15 Baso # (Auto) 0.1 X10^3/uL (0.0-0.1) 07/02/22 14:15 Absolute Nucleated RBC 0.1 /100WBC 07/02/22 14:15 Sodium 131 mmol/L (136-145) L 07/02/22 14:15 Corrected Sodium TNP 07/02/22 14:15 Potassium 6.5 mmol/L (3.5-5.1) H* 07/02/22 17:56 Chloride 96 mmol/L (98-107) L 07/02/22 14:15 Carbon Dioxide 17.0 mmol/L (21-32) L 07/02/22 14:15 BUN 83 mg/dL (7-18) H 07/02/22 14:15 Creatinine 3.89 mg/dL (0.70-1.30) H 07/02/22 14:15 Est GFR (MDRD) Af Amer 20 (>60) L 07/02/22 14:15 Est GFR (MDRD) Non-Af 16 (>60) L 07/02/22 14:15 Glucose 92 mg/dL (65-99) 07/02/22 14:15 Lactic Acid 4.8 mmol/L (0.4-2.0) H 07/02/22 14:15 Calcium 9.4 mg/dL (8.5-10.1) 07/02/22 14:15 Corrected Calcium TNP 07/02/22 14:15 Total Bilirubin 0.30 mg/dL (0.2-1.0) 07/02/22 14:15 AST 14 Units/L (15-37) L 07/02/22 14:15 ALT 14 Units/L (12-78) 07/02/22 14:15 Alkaline Phosphatase 111 Units/L (46-116) 07/02/22 14:15 Creatine Kinase 19 Units/L (39-308) L 07/02/22 14:15 Troponin I High Sens 4.0 ng/L (4.0-60.0) 07/02/22 14:15 Total Protein 8.4 g/dL (6.4-8.2) H 07/02/22 14:15 Albumin 3.8 g/dL (3.4-5.0) 07/02/22 14:15 Globulin 4.6 g/dL (2.5-4.5) H 07/02/22 14:15 Albumin/Globulin Ratio 0.8 Ratio (1.1-2.1) L 07/02/22 14:15 SARS-CoV-2 (PCR) Negative (NEGATIVE) 07/02/22 16:00 XRAY XRAY Interpreted by: Radiologist (REPORT NOTED.) and Self Opioid Opioid Risk Tool Age (Petey box if 16-45): No History of Preadolescent Sexual Abuse: No Total: 0 Total Score Risk Category: Low Risk Copyright: Chester ANGELO predicting aberrant behaviors Discharge Plan Diagnosis Discharge Problem: Acute hypotension, Sepsis, Acute renal insufficiency, Acute dehydration Discharge Plan Patient Disposition: ADMITTED INPATIENT Condition: Stable
[2022-07-02] MEDS ORDERED: NS 1,000 ML IV 1,000 ML ONE ×2 (16:06→23:21)
[2022-07-02] MEDS: LEVOPHED 8 MG/250 ML IV *PREMIX 8 MG/250 ML PLAST..BAG IV PRN (16:57)
[2022-07-02] MEDS ORDERED: INVanz INJ 1 GRAM VIAL 1 G in NS 100 ML IV 100 ML IV SCH (17:58)
[2022-07-02] MEDS ORDERED: DILAUDID INJ IVP ONE (18:05)
[2022-07-02] MEDS ORDERED: D50W ABBOJECT SYR IV ONE ×2 (18:51→23:57)
[2022-07-02] MEDS ORDERED: NovoLIN R (or HumuLIN R) IV ONE ×3 (18:52→23:59)
[2022-07-02] MEDS ORDERED: D50W ABBOJECT SYR ONE (18:56)
[2022-07-02] MEDS ORDERED: NovoLIN R (or HumuLIN R) ONE ×2 (18:58→19:03)
[2022-07-02] MEDS ORDERED: SNACK - Diabetic Appropriate PO SCH (20:00)
[2022-07-02] MEDS: SNACK - Diabetic Appropriate PO SCH (20:00)
[2022-07-02] MEDS ORDERED: NS 1,000 ML IV 1,000 ML IV SCH (23:45)
[2022-07-03] MEDS ORDERED: KAYEXALATE SUSP PO ONE
[2022-07-03] MEDS ORDERED: KAYEXALATE SUSP ONE (00:06)
[2022-07-03] MEDS ORDERED: NovoLIN R (or HumuLIN R) ONE (00:07)
[2022-07-03] MEDS: NS 1,000 ML IV 1,000 ML IV SCH ×3 (00:15→16:35)
[2022-07-03] MEDS: LEVOPHED 8 MG/250 ML IV *PREMIX 8 MG/250 ML PLAST..BAG IV PRN ×3 (00:27→17:35)
[2022-07-03 01:35] LABS: BILIRUBIN,URINE 1+ (NEGATIVE); BLOOD/HEMOGLOBIN,URINE 1+ (NEGATIVE); GLUCOSE, URINE NEGATIVE (NEGATIVE); KETONES,URINE NEGATIVE (NEGATIVE); LEUKOCYTE ESTERASE ,URINE 1+ (NEGATIVE); NITRITES,URINE NEGATIVE (NEGATIVE); PROTEIN,URINE 2+ (NEGATIVE); UROBILINOGEN,URINE NORMAL (NORMAL)
[2022-07-03 01:43] LABS: APPEARANCE,URINE CLEAR (CLEAR); COLOR,URINE YELLOW (YELLOW)
[2022-07-03 01:44] LABS: BACTERIA,URINE NEGATIVE /HPF (NEGATIVE); RBC,URINE 0-2 /HPF (0-3); SQUAMOUS EPITHELIAL CELL,UR FEW /HPF (NEGATIVE)
[2022-07-03 05:29] LABS: BASOPHILS # (AUTO) 0.1 X10^3/uL (0.0-0.1); BASOPHILS % (AUTO) 0.8 % (0.2-1.0); EOSINOPHILS # (AUTO) 0.1 x10^3/uL (0.0-0.2); EOSINOPHILS % (AUTO) 0.8 % (0.9-2.9); HEMATOCRIT 33.6 % (42.0-54.0); LYMPHOCYTES # (AUTO) 3.8 X10^3/uL (1.3-2.9); LYMPHOCYTES % (AUTO) 31.7 % (21.0-51.0); MEAN CORPUSCULAR HGB CONC 32.4 g/dL (33.0-35.0); MEAN CORPUSCULAR VOLUME 83.3 fL (80.0-100.0); MEAN PLATELET VOLUME 7.8 fL (7.4-11.0); MONOCYTES % (AUTO) 8.6 % (0.0-13.0); NEUTROPHILS # (AUTO) 6.9 x10^3/uL (2.2-4.8); NEUTROPHILS % (AUTO) 58.1 % (42.0-75.0); RED BLOOD COUNT 4.03 X10^6/uL (4.7-6.0); RED CELL DISTRIBUTION WIDTH 17.4 % (11.6-16.5); WHITE BLOOD COUNT 11.9 X10^3/uL (3.6-10.0)
[2022-07-03 05:34] LABS: INR 1.32 (0.8-1.3)
[2022-07-03 05:38] LABS: HEMOGLOBIN 10.9 g/dL (13.5-18.0)
[2022-07-03 05:47] LABS: CALCIUM 8.3 mg/dL (8.5-10.1); CARBON DIOXIDE 15.7 mmol/L (21-32); COR CA(FOR HYPOALB) 9.1 mg/dL (8.5-10.1); CREATININE 3.52 mg/dL (0.70-1.30); MAGNESIUM 1.5 mg/dL (1.7-2.9); TOTAL PROTEIN 6.7 g/dL (6.4-8.2)
[2022-07-03 09:16] VITALS: BMI 26.2
[2022-07-03] MEDS ORDERED: PHARMACY CONSULT - VANCOMYCIN XX SCH (11:00)
[2022-07-03] MEDS: FLOMAX PO SCH (11:35)
[2022-07-03] MEDS: HEPARIN SODIUM INJ 5000 UNITS SC SCH ×2 (11:35→20:00)
[2022-07-03] MEDS: VANCOMYCIN IV *PREMIX 1 G/200 ML BAG 1 G/200 ML PIGGYBACK IV SCH (11:36)
[2022-07-03] MEDS: DILAUDID INJ IVP PRN (14:58)
--- NOTE | 2022-07-03 15:16 | RAD ---
HISTORYElevated WBCSTUDYAP chestCOMPARISONAugust 2021FINDINGSStable heart size with similar extent and distribution of bilateral nodular infiltrative masses. Is associated pleural thickening around the periphery of the left lung. No large pleural effusion or pneumothorax is identified. Stable position of left IJ line extending to SVC.IMPRESSIONPersistent bilateral nodular infiltrative process which may represent multifocal pneumonia and/or metastatic lung disease. Correlate with clinical findings/history.Electronically signed by: BERNADETTE POP (Jul 03, 2022 15:15:01)
[2022-07-03] MEDS: SNACK - Diabetic Appropriate PO SCH (19:15)
[2022-07-04] MEDS: NS 1,000 ML IV 1,000 ML IV SCH ×3 (02:20→16:39)
--- NOTE | 2022-07-04 04:52 | CT ---
PROCEDURE: CT Chest without Contrast .HISTORY: Dyspnea and sepsis with metastatic disease.TECHNIQUE: Axial images were performed through the chest without the administration of IV contrast with multiplanar reformations . Dose reduction techniques including Automated Exposure Control (AEC) and adjustment of mA and kV were utilized .COMPARISON: 02/27/2022.TECHNICAL QUALITY: Satisfactory .FINDINGS:Trace atherosclerosis aorta with no aneurysm.Mediastinum and hilar regions show mild lymphadenopathy unchanged from previous study.Normal size heart with no pericardial fluid.Innumerable masses throughout both lung [place] consistent with metastatic disease similar to increased compared to previous study. No definite consolidation with valuation limited due to the number of metastasis present. Small left pleural effusion is unchanged.Visualized upper abdomen is unremarkable.No acute bony abnormality.IMPRESSION:1. Extensive pulmonary metastasis similar to increased compared to previous study.2. No definite pneumonia visualized with evaluation limited.3. Unchanged small left pleural effusion.4. Unchanged mediastinal and hilar lymphadenopathy.Electronically signed by: Kalyan Shah (Jul 04, 2022 04:50:47)
[2022-07-04 05:40] LABS: BASOPHILS # (AUTO) 0.1 X10^3/uL (0.0-0.1); BASOPHILS % (AUTO) 0.9 % (0.2-1.0); EOSINOPHILS # (AUTO) 0.3 x10^3/uL (0.0-0.2); EOSINOPHILS % (AUTO) 3.4 % (0.9-2.9); HEMATOCRIT 31.5 % (42.0-54.0); HEMOGLOBIN 10.5 g/dL (13.5-18.0); LYMPHOCYTES # (AUTO) 1.8 X10^3/uL (1.3-2.9); LYMPHOCYTES % (AUTO) 22.5 % (21.0-51.0); MEAN CORPUSCULAR HEMOGLOBIN 27.5 pg (27.0-34.0); MEAN CORPUSCULAR HGB CONC 33.3 g/dL (33.0-35.0); MEAN CORPUSCULAR VOLUME 82.6 fL (80.0-100.0); MEAN PLATELET VOLUME 8.3 fL (7.4-11.0); MONOCYTES # (AUTO) 0.7 x10^3/uL (0.3-0.8); MONOCYTES % (AUTO) 9.3 % (0.0-13.0); NEUTROPHILS # (AUTO) 5.1 x10^3/uL (2.2-4.8); NEUTROPHILS % (AUTO) 63.9 % (42.0-75.0); RED BLOOD COUNT 3.81 X10^6/uL (4.7-6.0); RED CELL DISTRIBUTION WIDTH 17.6 % (11.6-16.5); WHITE BLOOD COUNT 7.9 X10^3/uL (3.6-10.0)
[2022-07-04 05:53] LABS: ALBUMIN 2.7 g/dL (3.4-5.0); CALCIUM 8.8 mg/dL (8.5-10.1); CARBON DIOXIDE 21.2 mmol/L (21-32); COR CA(FOR HYPOALB) 9.8 mg/dL (8.5-10.1); CREATININE 1.7 mg/dL (0.70-1.30); TOTAL PROTEIN 6.5 g/dL (6.4-8.2)
[2022-07-04] MEDS: FLOMAX PO SCH (08:26)
[2022-07-04] MEDS: HEPARIN SODIUM INJ 5000 UNITS SC SCH ×2 (08:27→20:12)
[2022-07-04] MEDS ORDERED: PHARMACY COMMENT IV NR (08:30)
[2022-07-04 08:33] LABS: CREATININE 1.58 mg/dL (0.70-1.30); VANCOMYCIN,TROUGH 6.2 ug/mL (15-20)
[2022-07-04] MEDS ORDERED: LEVOPHED 8 MG/250 ML IV *PREMIX 8 MG/250 ML PLAST..BAG IV ONE (08:39)
[2022-07-04] MEDS: LEVOPHED 8 MG/250 ML IV *PREMIX 8 MG/250 ML PLAST..BAG IV PRN ×2 (08:49→21:50)
[2022-07-04] MEDS: VANCOMYCIN IV *PREMIX 1 G/200 ML BAG 1 G/200 ML PIGGYBACK IV SCH (09:42)
[2022-07-04] MEDS ORDERED: ALBUMIN HUMAN 25%- 100 ML 100 ML IV SCH (10:00)
[2022-07-04] MEDS: NovoLIN R (or HumuLIN R) SUBCUT PRN ×3 (12:23→20:13)
--- NOTE | 2022-07-04 13:04 | DR.H&P ---
H&P - History & Physical for Day of: H&P Date: 07/02/22 - Chief Complaint Chief Complaint: WEAKNESS, LOW BLOOD PRESSURE, DIZZINESS - History of Present Illness History of Present Illness: PATIENT IS A 66 YEAR OLD MALE, PATIENT OF OURS. HE PRESENTED TO THE ER VIA EMS WITH COMPLAINTS OF LOW BLOOD PRESSURE, DIZZINESS, AND WEAKNESS. HE REPORTS THAT HIS HOME HEALTH NURSE VISITED WITH HIM TODAY AND REPORTED THAT HIS BLOOD PRESSURE WAS LOW AND THAT HE NEEDED TO BE EVALUATED. PATIENT HAS A CURRENT HISTORY OF STAGE 4 COLON CANCER WITH METS TO THE LUNGS. HE HAD A COLON RESECTION WITH COLOSTOMY IN APRIL. HE HAS ONLY BEEN ABLE TO UNDERGO TWO CHEMO TREATMENTS DUE TO SEVERE WEAKNESS AND BEING HOSPITALIZED. PATIENT WAS HOSPITALIZED ONE MONTH AGO FOR TREATMENT OF AN INFECTED DECUBITUS ULCER AND LARGE, OPEN ABDOMINAL WOUND. A WOUND VAC WAS PLACED DURING THAT VISIT. WOUND VAC REMAINS IN PLACE. ABDOMINAL WOUND HAS BEEN BEING PACKED PER VISITING NURSES. HAS BEEN FOLLOWING HIM OUTPATIENT. ON ARRIVAL TO THE ER, VITALS WERE 98.1-109-18-88%-84/52. HE WAS PLACED ON NASAL CANNULA AT 2 LPM. SATURATIONS INCREASED TO 96%. LABS WERE OBTAINED. WBC 14.2, RBC 4.79, HGB 13.0, HCT 40.1, PLT COUNT 526, SODIUM 131, POTASSIUM 6.4, CHLORIDE 96, CARBON DIOXIDE 17.0, BUN 83, CALCIUM 3.89, GLUCOSE 92, LACTIC ACID 4.8, AST 14, ALT 14, ALK PHOS 111, CREATINE KINASE 19, TROPONIN 4.0, TOTAL PROTEIN 8.4, ALBUMIN 3.8, GLOBULIN 4.6. URINALYSIS REVEALED: WBC 0-2, RBC 0-2, LEUKOCYTES 1+, BILI 1+, BACTERIA NEGATIVE, NITRITE NEGATIVE. COVID-19 NEGATIVE. BLOOD CULTURES WERE SET UP. EKG WAS OBTAINED AND REVEALED SINUS TACHYCARDIA WITH HR 104. CHEST XRAY WAS OBTAINED AND REVEALED: Persistent bilateral nodular infiltrative process which may represent multifocal pneumonia and/or metastatic lung disease. IN THE ER, HE WAS GIVEN A NORMAL SALINE BOLUS, NOVOLIN R 5 UNITS, KAYEXALATE 25G PO X 1. HE WAS ADMITTED TO THE INTENSIVE CARE UNIT FOR FURTHER EVALUATION AND TREATMENT OF SEPSIS, SACRAL DECUBITUS ULCER, ABDOMINAL WOUND FROM RECENT SURGERY, HYPOTENSION, ACUTE RENAL FAILURE, HYPERKALEMIA. HE WAS STARTED ON NORMAL SALINE AT 75 ML/HR, VANCOMYCIN 1G IF DAILY, LEVOPHED DRIP, HEPARIN 5000 UNITS SC BID, NOVOLIN R SLIDING SCALE, OTBS ACHS, DILAUDID 0.5MG IV Q8H PRN, AND FLOMAX 0.4MG PO DAILY. WE WILL RESUME HIS HOME MEDICATIONS OF PANTOPRAZOLE, SIMVASTATIN, AND PERCOCET. WE WILL CONSULT FOR WOUND CONSULT. OTHERWISE, WE WILL FOLLOW-UP WITH AM LABS AND CONTINUE TO MONITOR. TIME SPENT ON CLINICAL ASSESSMENT, REVIWING LABS AND IMAGING, DECISION MAKING, AND DOCUMENTATION GREATER THAN 75 MINUTES. - Past Medical History Past Medical History: Hypertension, Diabetes, Arthritis Additional Medical History: COLON CANCER - Past Surgical History Surgical History: Bowel Resection - Family History Family Medical History: Diabetes Mellitus, Cancer, Coronary Artery Disease, Hypertension - Social History Does patient currently use any type of tobacco product: Yes Have you used tobacco products in the last 12 months: Yes Type of Tobacco Use: Cigarettes Does any household member use tobacco: Yes Alcohol Use: None Drug Use: None - Medications Home Medications: Penicillins Allergy (Verified 06/01/22 17:00) - Review of Systems Constitutional: Weakness Eyes: No Symptoms Reported ENT: No Symptoms Reported Respiratory: No Symptoms Reported Cardiovascular: Light Headedness Gastrointestinal: No Symptoms Reported Genitourinary: No Symptoms Reported Musculoskeletal: No Symptoms Reported Skin: Wound Neurological: Weakness - Physical Exam Vital Signs: Temperature 98.1 F Pulse Rate 110 Respiratory Rate 28 Blood Pressure [Right Arm] 143/72 Blood Pressure 112/67 O2 Sat by Pulse Oximetry 99 Oriented: Normal Eyes: Normal Ear: Normal Nose: Normal Throat: Normal Respiratory: Diminished Throughout Cardiovascular: Tachycardia : Normal Auscultation: Bowel Sounds: Normal Palpation: Normal Tenderness: Normal Skin: Wound (SACRAL DECUBITUS ULCER, ABDOMINAL WOUND FROM RECENT SURGERY, COLOSTOMY ) Musculoskeletal: Normal Psychiatric: Normal Mood Description: Calm Affect: Normal Speech Pattern: Clear - Assessment/Plan (1) Sepsis Qualifiers: Sepsis type: sepsis due to unspecified organism Sepsis acute organ dysfunction status: with acute organ dysfunction Severe sepsis acute organ dysfunction type: acute renal failure Severe sepsis shock status: unspecified Status: Acute Plan: ADMIT, NORMAL SALINE AT 75 ML/HR, VANCOMYCIN 1G IF DAILY, LEVOPHED DRIP, HEPARIN 5000 UNITS SC BID, NOVOLIN R SLIDING SCALE, OTBS ACHS, DILAUDID 0.5MG IV Q8H PRN, AND FLOMAX 0.4MG PO DAILY. (2) Acute renal failure Qualifiers: Acute renal failure type: unspecified Qualified Code(s): N17.9 - Acute kidney failure, unspecified Status: Acute (3) Sacral decubitus ulcer, stage III Status: Acute (4) Open abdominal wall wound Qualifiers: Encounter type: subsequent encounter Qualified Code(s): S31.109D - Unspecified open wound of abdominal wall, unspecified quadrant without penetration into peritoneal cavity, subsequent encounter Status: Acute (5) Hypotension Qualifiers: Hypotension type: unspecified hypotension type Qualified Code(s): I95.9 - Hypotension, unspecified Status: Acute - Allergies Allergies/Adverse Reactions: Allergies Allergy/AdvReac Type Severity Reaction Status Date / Time Penicillins Allergy Verified 06/01/22 17:00
[2022-07-04] MEDS: PROTONIX TAB 40 MG PO SCH (13:31)
[2022-07-04] MEDS ORDERED: ZOCOR TAB 20 MG PO SCH (14:00)
[2022-07-04] MEDS ORDERED: SNACK - Diabetic Appropriate PO SCH (20:00)
[2022-07-04] MEDS: SNACK - Diabetic Appropriate PO SCH (20:00)
[2022-07-04] MEDS: PERCOCET TAB 5/325 MG PO PRN (20:11)
[2022-07-05] MEDS: NS 1,000 ML IV 1,000 ML IV SCH ×4 (02:03→20:27)
[2022-07-05 05:20] LABS: BASOPHILS # (AUTO) 0.1 X10^3/uL (0.0-0.1); BASOPHILS % (AUTO) 1.3 % (0.2-1.0); EOSINOPHILS # (AUTO) 0.4 x10^3/uL (0.0-0.2); HEMATOCRIT 28.3 % (42.0-54.0); HEMOGLOBIN 9.4 g/dL (13.5-18.0); LYMPHOCYTES # (AUTO) 1.9 X10^3/uL (1.3-2.9); LYMPHOCYTES % (AUTO) 27.1 % (21.0-51.0); MEAN CORPUSCULAR HEMOGLOBIN 27.3 pg (27.0-34.0); MEAN CORPUSCULAR HGB CONC 33.1 g/dL (33.0-35.0); MEAN CORPUSCULAR VOLUME 82.7 fL (80.0-100.0); MEAN PLATELET VOLUME 8.5 fL (7.4-11.0); MONOCYTES # (AUTO) 0.7 x10^3/uL (0.3-0.8); MONOCYTES % (AUTO) 9.4 % (0.0-13.0); NEUTROPHILS # (AUTO) 3.9 x10^3/uL (2.2-4.8); NEUTROPHILS % (AUTO) 56.2 % (42.0-75.0); RED BLOOD COUNT 3.43 X10^6/uL (4.7-6.0); RED CELL DISTRIBUTION WIDTH 17.2 % (11.6-16.5)
[2022-07-05 05:41] LABS: ALANINE AMINOTRANSFERASE 8 Units/L (12-78); ALBUMIN 2.7 g/dL (3.4-5.0); ALKALINE PHOSPHATASE 86 Units/L (46-116); ASPARTATE AMINO TRANSFERASE 11 Units/L (15-37); BLOOD UREA NITROGEN 34 mg/dL (7-18); CALCIUM 8.3 mg/dL (8.5-10.1); CARBON DIOXIDE 20.3 mmol/L (21-32); CHLORIDE 112 mmol/L (98-107); COR CA(FOR HYPOALB) 9.3 mg/dL (8.5-10.1); COR NA(FOR HYPERGLY) 144 mmol/L (136-145); CREATININE 1.09 mg/dL (0.70-1.30); SODIUM 142 mmol/L (136-145); TOTAL PROTEIN 6.1 g/dL (6.4-8.2); eGFR NON BLACK RACES > 60 (>60)
[2022-07-05] MEDS: NovoLIN R (or HumuLIN R) SUBCUT PRN (05:47)
[2022-07-05] MEDS: FLOMAX PO SCH (09:18)
[2022-07-05] MEDS: PROTONIX TAB 40 MG PO SCH (09:18)
[2022-07-05] MEDS: HEPARIN SODIUM INJ 5000 UNITS SC SCH ×2 (09:18→20:28)
[2022-07-05] MEDS: ALBUMIN HUMAN 25%- 100 ML 100 ML IV SCH ×2 (09:21→20:28)
[2022-07-05] MEDS: VANCOMYCIN IV *PREMIX 1 G/200 ML BAG 1 G/200 ML PIGGYBACK IV SCH (09:21)
[2022-07-05] MEDS: DILAUDID INJ IVP PRN (09:34)
[2022-07-05] MEDS: PERCOCET TAB 5/325 MG PO PRN ×2 (11:16→20:29)
--- NOTE | 2022-07-05 12:18 | PCM.PROG ---
Progress Note - Progress Note for Day of Date of Exam: 07/04/22 - Subjective Subjective: WAS ADMITTED FOR TREATMENT OF SEPSIS, SACRAL DECUBITUS ULCER, ABDOMINAL WOUND FROM RECENT SURGERY, HYPOTENSION, ACUTE RENAL FAILURE, HYPERKALEMIA. TODAY, HE IS ALERT AND ORIENTED, LYING IN BED ON MORNING ROUNDS. HE CONTINUES WITH COMPLAINTS OF GENERALIZED WEAKNESS AND DIZZINESS AT TIMES. HIS BLOOD PRESSURE HAS REMAINED LOW THIS MORNING AND THROUGHOUT THE NIGHT. NURSING STAFF ATTEMPTED TO DECREASE THE LEVOPHED DRIP, HOWEVER, BLOOD PRESSURE WOULD NOT TOLERATED THE DECREASED DOSE. ON EXAMINATION, HEART IS REGULAR IN RATE AND RHYTHM. BILATERAL LUNGS ARE NOTED WITH DIMINISHED LUNG SOUNDS THROUGHOUT. ABDOMEN IS ROUND, SOFT, AND NOTED WITH MILD TENDERNESS. THERE ARE TWO SMALL WOUNDS TO THE ABDOMINAL WALL WHICH CURRENTLY HAVE PACKING. THERE IS A WOUND VAC IN PLACE TO THE SACRUM. NO UPPER OR LOWER EXTREMITY EDEMA NOTED. HIS VITALS THIS MORNING ARE: 97.4-112-29-97%-103/61. LABS WERE OBTAINED. WBC 7.9, RBC 3.81, HGB 10.5, HCT 31.5, PLT COUNT 395, SODIUM 139, POTASSIUM 5.9, CHLORIDE 108, BUN 57, CREATININE 1.70, GLCUOSE 192, CALCIUM 8.8, AST 12, ALT 11, ALK PHOS 105, TOTAL PROTEIN 6.5, ABLUMIN 2.7. BLOOD CULTURES ARE PENDING. WOUND CULTURES FROM 06/21/22 REPORTED GROWTH OF STAPHYLOCOCCUS EPIDERMIDIS AND STREP MITIS. HE HAS NOT HAD ANTIBIOTIC TREATMENT FOR THESE IN THE PAST TWO WEEKS. A CHEST CT WAS REPEATED YESTERDAY. IT REVEALED: 1. Extensive pulmonary metastasis similar to increased compared to previous study. 2. No definite pneumonia visualized with evaluation limited.3. Unchanged small left pleural effusion. 4. Unchanged mediastinal and hilar lymphadenopathy. PATIENT HAS A CURRENT HISTORY OF METASTATIC COLON CANCER. HE IS AWARE OF MASSES IN LUNGS, BUT HAS BEEN UNABLE TO HAVE ANY MEANINGFUL CHEMOTHERAPY TREATMENT. HE IS CURRENTLY RECEIVING NORMAL SALINE AT 75 ML/HR, VANCOMYCIN 1G IV DAILY, LEVOPHED DRIP, HEPARIN 5000 UNITS SC BID, NOVOLIN R SLIDING SCALE, OTBS ACHS, DILAUDID 0.5MG IV Q8H PRN, AND FLOMAX 0.4MG PO DAILY. WE WILL CONTINUE WITH CURRENT PLAN OF CARE TODAY AND ADD ALBUMIN 25% IV DAILY. WILL FOLLOW PATIENT FOR WOUND CARE. OTHERWISE, WE PLAN TO FOLLOW-UP WITH AM LABS AND CONTINUE TO MONITOR. TIME SPENT ON CLINICAL ASSESSMENT, REVIWING LABS AND IMAGING, DECISION MAKING, AND DOCUMENTATION GREATER THAN 75 MINUTES. - Past Medical Family Social History Past Med/Fam/Surg Hx: No changes since H&P Allergies: Allergies Penicillins Allergy (Verified 06/01/22 17:00) - Review of Systems ROS: No change since H&P - Vital Signs and I&O's Vital Signs: Temperature 97.8 F Pulse Rate 108 Respiratory Rate 20 Blood Pressure [Right Arm] 143/72 Blood Pressure 125/63 O2 Sat by Pulse Oximetry 99 Intake and Output: Intake & Output 07/03/22 07/04/22 07/05/22 07/06/22 11:59 11:59 11:59 11:59 Intake Total 2562 / 2562 3841.10 / 3841.10 2655.9 / 2655.9 Output Total 550 / 550 1350 / 1350 2370 / 2370 Balance 2011 2491.10 / 2491.10 285.9 / 285.9 - Physical Exam Oriented: Normal Eyes: Normal Ear: Normal Nose: Normal Throat: Normal Respiratory: Generalized, Diminished Cardiovascular: Tachycardia : Normal Auscultation: Bowel Sounds: Normal Palpation: Normal Tenderness: Normal Skin: Wound (SACRAL DECUBITUS ULCER, ABDOMINAL WOUND FROM RECENT SURGERY, COLOSTOMY ) Musculoskeletal: Normal Psychiatric: Normal Mood Description: Calm Affect: Normal Speech Pattern: Clear, Appropriate - Laboratory and Diagnostics Result Diagrams: 07/05/22 04:36 07/05/22 04:36 Labs: 07/02/22 16:50 Blood Blood Culture - Preliminary 07/02/22 14:15 Blood Blood Culture - Preliminary Laboratory WBC 7.0 X10^3/uL (3.6-10.0) 07/05/22 04:36 RBC 3.43 X10^6/uL (4.7-6.0) L 07/05/22 04:36 Hgb 9.4 g/dL (13.5-18.0) L 07/05/22 04:36 Hct 28.3 % (42.0-54.0) L 07/05/22 04:36 MCV 82.7 fL (80.0-100.0) 07/05/22 04:36 MCH 27.3 pg (27.0-34.0) 07/05/22 04:36 MCHC 33.1 g/dL (33.0-35.0) 07/05/22 04:36 RDW 17.2 % (11.6-16.5) H 07/05/22 04:36 Plt Count 339 X10^3/uL (150.0-450.0) 07/05/22 04:36 MPV 8.5 fL (7.4-11.0) 07/05/22 04:36 Neut % (Auto) 56.2 % (42.0-75.0) 07/05/22 04:36 Lymph % (Auto) 27.1 % (21.0-51.0) 07/05/22 04:36 [place] % (Auto) 9.4 % (0.0-13.0) 07/05/22 04:36 Eos % (Auto) 6.0 % (0.9-2.9) H 07/05/22 04:36 Baso % (Auto) 1.3 % (0.2-1.0) H 07/05/22 04:36 Neut # (Auto) 3.9 x10^3/uL (2.2-4.8) 07/05/22 04:36 Lymph # (Auto) 1.9 X10^3/uL (1.3-2.9) 07/05/22 04:36 [place] # (Auto) 0.7 x10^3/uL (0.3-0.8) 07/05/22 04:36 Eos # (Auto) 0.4 x10^3/uL (0.0-0.2) H 07/05/22 04:36 Baso # (Auto) 0.1 X10^3/uL (0.0-0.1) 07/05/22 04:36 Absolute Nucleated RBC 0.0 /100WBC 07/05/22 04:36 PT 15.9 SECONDS (11.8-14.3) 07/03/22 05:13 INR Target Range - 07/03/22 05:13 INR 1.32 (0.8-1.3) H 07/03/22 05:13 APTT 34.9 SECONDS (22.9-36.5) 07/03/22 05:13 PTT Comment - 07/03/22 05:13 Sodium 142 mmol/L (136-145) 07/05/22 04:36 Corrected Sodium 144 mmol/L (136-145) 07/05/22 04:36 Potassium 5.4 mmol/L (3.5-5.1) H 07/05/22 04:36 Chloride 112 mmol/L (98-107) H 07/05/22 04:36 Carbon Dioxide 20.3 mmol/L (21-32) L 07/05/22 04:36 BUN 34 mg/dL (7-18) H 07/05/22 04:36 Creatinine 1.09 mg/dL (0.70-1.30) 07/05/22 04:36 Est GFR (MDRD) Af Amer > 60 (>60) 07/05/22 04:36 Est GFR (MDRD) Non-Af > 60 (>60) 07/05/22 04:36 Glucose 181 mg/dL (65-99) H 07/05/22 04:36 POC Glucose (mg/dL) 127 mg/dL (65-99) H 07/05/22 11:26 Lactic Acid 1.9 mmol/L (0.4-2.0) 07/03/22 07:25 Calcium 8.3 mg/dL (8.5-10.1) L 07/05/22 04:36 Corrected Calcium 9.3 mg/dL (8.5-10.1) 07/05/22 04:36 Magnesium 1.5 mg/dL (1.7-2.9) L 07/03/22 05:13 Total Bilirubin 0.30 mg/dL (0.2-1.0) 07/05/22 04:36 AST 11 Units/L (15-37) L 07/05/22 04:36 ALT 8 Units/L (12-78) L 07/05/22 04:36 Alkaline Phosphatase 86 Units/L (46-116) 07/05/22 04:36 Creatine Kinase 17 Units/L (39-308) L 07/03/22 05:13 Troponin I High Sens 49.0 ng/L (4.0-60.0) 07/03/22 05:13 Total Protein 6.1 g/dL (6.4-8.2) L 07/05/22 04:36 Albumin 2.7 g/dL (3.4-5.0) L 07/05/22 04:36 Globulin 3.4 g/dL (2.5-4.5) 07/05/22 04:36 Albumin/Globulin Ratio 0.8 Ratio (1.1-2.1) L 07/05/22 04:36 Specimen Type Clean catch urine 07/03/22 01:00 Urine Color Yellow (YELLOW) 07/03/22 01:00 Urine Appearance Clear (CLEAR) 07/03/22 01:00 Urine pH 5.0 (5.0 - 8.0) 07/03/22 01:00 Ur Specific [place] 1.025 (1.000-1.030) 07/03/22 01:00 Urine Protein 2+ (NEGATIVE) 07/03/22 01:00 Urine Glucose (UA) Negative (NEGATIVE) 07/03/22 01:00 Urine Ketones Negative (NEGATIVE) 07/03/22 01:00 Urine Blood 1+ (NEGATIVE) 07/03/22 01:00 Urine Nitrite Negative (NEGATIVE) 07/03/22 01:00 Urine Bilirubin 1+ (NEGATIVE) 07/03/22 01:00 Urine Urobilinogen Normal (NORMAL) 07/03/22 01:00 Ur Leukocyte Esterase 1+ (NEGATIVE) 07/03/22 01:00 Urine RBC 0-2 /HPF (0-3) 07/03/22 01:00 Urine WBC 0-2 /HPF (0-5) 07/03/22 01:00 Ur Squamous Epith Cells Few /HPF (NEGATIVE) 07/03/22 01:00 Urine Bacteria Negative /HPF (NEGATIVE) 07/03/22 01:00 Ur Culture Indicated? No/not indicated 07/03/22 01:00 Vancomycin Trough 6.2 ug/mL (15-20) L 07/04/22 08:09 SARS-CoV-2 (PCR) Negative (NEGATIVE) 07/02/22 16:00 - Plan (1) Sepsis Status: Acute Qualifiers: Sepsis type: sepsis due to unspecified organism Sepsis acute organ dysfunction status: with acute organ dysfunction Severe sepsis acute organ dysfunction type: acute renal failure Severe sepsis shock status: unspecified Plan: NORMAL SALINE AT 75 ML/HR, ALBUMIN 25% IV DAILY, VANCOMYCIN 1G IV DAILY, LEVOPHED DRIP, HEPARIN 5000 UNITS SC BID, NOVOLIN R SLIDING SCALE, OTBS ACHS, DILAUDID 0.5MG IV Q8H PRN, AND FLOMAX 0.4MG PO DAILY. (2) Acute renal failure Status: Acute Qualifiers: Acute renal failure type: unspecified Qualified Code(s): N17.9 - Acute kidney failure, unspecified (3) Sacral decubitus ulcer, stage III Status: Acute (4) Open abdominal wall wound Status: Acute Qualifiers: Encounter type: subsequent encounter Qualified Code(s): S31.109D - Unspecified open wound of abdominal wall, unspecified quadrant without penetration into peritoneal cavity, subsequent encounter (5) Hypotension Status: Acute Qualifiers: Hypotension type: unspecified hypotension type Qualified Code(s): I95.9 - Hypotension, unspecified (6) Hypoalbuminemia Status: Acute
--- NOTE | 2022-07-05 12:24 | PCM.PROG ---
Progress Note - Progress Note for Day of Date of Exam: 07/05/22 - Subjective Subjective: WAS ADMITTED FOR TREATMENT OF SEPSIS, SACRAL DECUBITUS ULCER, ABDOMINAL WOUND FROM RECENT SURGERY, HYPOTENSION, ACUTE RENAL FAILURE, HYPERKALEMIA. TODAY, HE IS ALERT AND ORIENTED, LYING IN BED ON MORNING ROUNDS. HE CONTINUES WITH COMPLAINTS OF GENERALIZED WEAKNESS, BUT REPORTS IMPROVEMENT IN SYMPTOMS SINCE ADMISSION. HIS BLOOD PRESSURE HAS REMAINED LOW THIS MORNING AND THROUGHOUT THE NIGHT, BUT HAS INCREASED SOME SINCE YESTERDAY. NURSING STAFF HAS BEEN ABLE TO DECREASE THE LEVOPHED AND HIS BLOOD PRESSURE IS STABLE WITH THE CHANGES. ON EXAMINATION, HE IS SLIGHTLY TACHYCARDIC WITH HR 100-110. BILATERAL LUNGS ARE NOTED WITH DIMINISHED LUNG SOUNDS THROUGHOUT. ABDOMEN IS ROUND, SOFT, AND NOTED WITH MILD TENDERNESS. THERE ARE TWO SMALL WOUNDS TO THE ABDOMINAL WALL WHICH CURRENTLY HAVE PACKING. THERE IS A WOUND VAC IN PLACE TO THE SACRUM. NO UPPER OR LOWER EXTREMITY EDEMA NOTED. HIS VITALS THIS MORNING ARE: 97.8-102-22-98%-114/64. LABS WERE OBTAINED. WBC 7.0, RBC 3.43, HGB 9.4, HCT 28.3, SODIUM 142, POTASSIUM 5.4, CHLORIDE 112, CARBON DIOXIDE 20.3, BUN 34, CREATININE 1.09, GLUCOSE 180, CALCIUM 8.3, AST 11, ALT 8, ALK PHOS 86, TOTAL PROTEIN 6.1, ALBUMIN 2.7. BLOOD CULTURES ARE PENDING. WOUND CULTURES FROM 06/21/22 REPORTED GROWTH OF STAPHYLOCOCCUS EPIDERMIDIS AND STREP MITIS. HE IS CURRENTLY RECEIVING NORMAL SALINE AT 75 ML/HR, VANCOMYCIN 1G IV DAILY, LEVOPHED DRIP, HEPARIN 5000 UNITS SC BID, NOVOLIN R SLIDING SCALE, OTBS ACHS, DILAUDID 0.5MG IV Q8H PRN, AND FLOMAX 0.4MG PO DAILY. WE WILL CONTINUE WITH CURRENT PLAN OF CARE TODAY AND INCREASE ALBUMIN TO TWICE A DAY. WE WILL ATTEMPT TO WEAN THE LEVOPHED HIS BLOOD PRESSURE ALLOWS. WILL FOLLOW PATIENT FOR WOUND CARE. OTHERWISE, WE PLAN TO FOLLOW-UP WITH AM LABS AND CONTINUE TO MONITOR. TIME SPENT ON CLINICAL ASSESSMENT, REVIWING LABS AND IMAGING, DECISION MAKING, AND DOCUMENTATION GREATER THAN 75 MINUTES. - Past Medical Family Social History Past Med/Fam/Surg Hx: No changes since H&P Allergies: Allergies Penicillins Allergy (Verified 06/01/22 17:00) - Review of Systems ROS: No change since H&P - Vital Signs and I&O's Vital Signs: Temperature 97.8 F Pulse Rate 108 Respiratory Rate 20 Blood Pressure [Right Arm] 143/72 Blood Pressure 125/63 O2 Sat by Pulse Oximetry 99 Intake and Output: Intake & Output 07/03/22 07/04/22 07/05/22 07/06/22 11:59 11:59 11:59 11:59 Intake Total 2562 / 2562 3841.10 / 3841.10 2655.9 / 2655.9 Output Total 550 / 550 1350 / 1350 2370 / 2370 Balance 2011 2491.10 / 2491.10 285.9 / 285.9 - Physical Exam Oriented: Normal Eyes: Normal Ear: Normal Nose: Normal Throat: Normal Respiratory: Generalized, Diminished Cardiovascular: Tachycardia : Normal Auscultation: Bowel Sounds: Normal Palpation: Normal Tenderness: Normal Skin: Wound (SACRAL DECUBITUS ULCER, ABDOMINAL WOUND FROM RECENT SURGERY, COLOSTOMY ) Musculoskeletal: Normal Psychiatric: Normal Mood Description: Calm Affect: Normal Speech Pattern: Clear, Appropriate - Laboratory and Diagnostics Result Diagrams: 07/05/22 04:36 07/05/22 04:36 Labs: 07/02/22 16:50 Blood Blood Culture - Preliminary 07/02/22 14:15 Blood Blood Culture - Preliminary Laboratory WBC 7.0 X10^3/uL (3.6-10.0) 07/05/22 04:36 RBC 3.43 X10^6/uL (4.7-6.0) L 07/05/22 04:36 Hgb 9.4 g/dL (13.5-18.0) L 07/05/22 04:36 Hct 28.3 % (42.0-54.0) L 07/05/22 04:36 MCV 82.7 fL (80.0-100.0) 07/05/22 04:36 MCH 27.3 pg (27.0-34.0) 07/05/22 04:36 MCHC 33.1 g/dL (33.0-35.0) 07/05/22 04:36 RDW 17.2 % (11.6-16.5) H 07/05/22 04:36 Plt Count 339 X10^3/uL (150.0-450.0) 07/05/22 04:36 MPV 8.5 fL (7.4-11.0) 07/05/22 04:36 Neut % (Auto) 56.2 % (42.0-75.0) 07/05/22 04:36 Lymph % (Auto) 27.1 % (21.0-51.0) 07/05/22 04:36 [place] % (Auto) 9.4 % (0.0-13.0) 07/05/22 04:36 Eos % (Auto) 6.0 % (0.9-2.9) H 07/05/22 04:36 Baso % (Auto) 1.3 % (0.2-1.0) H 07/05/22 04:36 Neut # (Auto) 3.9 x10^3/uL (2.2-4.8) 07/05/22 04:36 Lymph # (Auto) 1.9 X10^3/uL (1.3-2.9) 07/05/22 04:36 [place] # (Auto) 0.7 x10^3/uL (0.3-0.8) 07/05/22 04:36 Eos # (Auto) 0.4 x10^3/uL (0.0-0.2) H 07/05/22 04:36 Baso # (Auto) 0.1 X10^3/uL (0.0-0.1) 07/05/22 04:36 Absolute Nucleated RBC 0.0 /100WBC 07/05/22 04:36 PT 15.9 SECONDS (11.8-14.3) 07/03/22 05:13 INR Target Range - 07/03/22 05:13 INR 1.32 (0.8-1.3) H 07/03/22 05:13 APTT 34.9 SECONDS (22.9-36.5) 07/03/22 05:13 PTT Comment - 07/03/22 05:13 Sodium 142 mmol/L (136-145) 07/05/22 04:36 Corrected Sodium 144 mmol/L (136-145) 07/05/22 04:36 Potassium 5.4 mmol/L (3.5-5.1) H 07/05/22 04:36 Chloride 112 mmol/L (98-107) H 07/05/22 04:36 Carbon Dioxide 20.3 mmol/L (21-32) L 07/05/22 04:36 BUN 34 mg/dL (7-18) H 07/05/22 04:36 Creatinine 1.09 mg/dL (0.70-1.30) 07/05/22 04:36 Est GFR (MDRD) Af Amer > 60 (>60) 07/05/22 04:36 Est GFR (MDRD) Non-Af > 60 (>60) 07/05/22 04:36 Glucose 181 mg/dL (65-99) H 07/05/22 04:36 POC Glucose (mg/dL) 127 mg/dL (65-99) H 07/05/22 11:26 Lactic Acid 1.9 mmol/L (0.4-2.0) 07/03/22 07:25 Calcium 8.3 mg/dL (8.5-10.1) L 07/05/22 04:36 Corrected Calcium 9.3 mg/dL (8.5-10.1) 07/05/22 04:36 Magnesium 1.5 mg/dL (1.7-2.9) L 07/03/22 05:13 Total Bilirubin 0.30 mg/dL (0.2-1.0) 07/05/22 04:36 AST 11 Units/L (15-37) L 07/05/22 04:36 ALT 8 Units/L (12-78) L 07/05/22 04:36 Alkaline Phosphatase 86 Units/L (46-116) 07/05/22 04:36 Creatine Kinase 17 Units/L (39-308) L 07/03/22 05:13 Troponin I High Sens 49.0 ng/L (4.0-60.0) 07/03/22 05:13 Total Protein 6.1 g/dL (6.4-8.2) L 07/05/22 04:36 Albumin 2.7 g/dL (3.4-5.0) L 07/05/22 04:36 Globulin 3.4 g/dL (2.5-4.5) 07/05/22 04:36 Albumin/Globulin Ratio 0.8 Ratio (1.1-2.1) L 07/05/22 04:36 Specimen Type Clean catch urine 07/03/22 01:00 Urine Color Yellow (YELLOW) 07/03/22 01:00 Urine Appearance Clear (CLEAR) 07/03/22 01:00 Urine pH 5.0 (5.0 - 8.0) 07/03/22 01:00 Ur Specific [place] 1.025 (1.000-1.030) 07/03/22 01:00 Urine Protein 2+ (NEGATIVE) 07/03/22 01:00 Urine Glucose (UA) Negative (NEGATIVE) 07/03/22 01:00 Urine Ketones Negative (NEGATIVE) 07/03/22 01:00 Urine Blood 1+ (NEGATIVE) 07/03/22 01:00 Urine Nitrite Negative (NEGATIVE) 07/03/22 01:00 Urine Bilirubin 1+ (NEGATIVE) 07/03/22 01:00 Urine Urobilinogen Normal (NORMAL) 07/03/22 01:00 Ur Leukocyte Esterase 1+ (NEGATIVE) 07/03/22 01:00 Urine RBC 0-2 /HPF (0-3) 07/03/22 01:00 Urine WBC 0-2 /HPF (0-5) 07/03/22 01:00 Ur Squamous Epith Cells Few /HPF (NEGATIVE) 07/03/22 01:00 Urine Bacteria Negative /HPF (NEGATIVE) 07/03/22 01:00 Ur Culture Indicated? No/not indicated 07/03/22 01:00 Vancomycin Trough 6.2 ug/mL (15-20) L 07/04/22 08:09 SARS-CoV-2 (PCR) Negative (NEGATIVE) 07/02/22 16:00 - Plan (1) Sepsis Status: Acute Qualifiers: Sepsis type: sepsis due to unspecified organism Sepsis acute organ dysfunction status: with acute organ dysfunction Severe sepsis acute organ dysfunction type: acute renal failure Severe sepsis shock status: unspecified Plan: NORMAL SALINE AT 75 ML/HR, ALBUMIN 25% IV BID, VANCOMYCIN 1G IV DAILY, LEVOPHED DRIP, HEPARIN 5000 UNITS SC BID, NOVOLIN R SLIDING SCALE, OTBS ACHS, DILAUDID 0.5MG IV Q8H PRN, AND FLOMAX 0.4MG PO DAILY. (2) Acute renal failure Status: Acute Qualifiers: Acute renal failure type: unspecified Qualified Code(s): N17.9 - Acute kidney failure, unspecified (3) Sacral decubitus ulcer, stage III Status: Acute (4) Open abdominal wall wound Status: Acute Qualifiers: Encounter type: subsequent encounter Qualified Code(s): S31.109D - Unspecified open wound of abdominal wall, unspecified quadrant without penetration into peritoneal cavity, subsequent encounter (5) Hypotension Status: Acute Qualifiers: Hypotension type: unspecified hypotension type Qualified Code(s): I95.9 - Hypotension, unspecified (6) Hypoalbuminemia Status: Acute (7) H/O colon cancer, stage IV Status: Chronic (8) Diabetes Status: Chronic Qualifiers: Diabetes mellitus type: type 2 Diabetes mellitus long term care social worker insulin use: with long term care social worker use Diabetes mellitus complication status: with other specified complication Qualified Code(s): E11.69 - Type 2 diabetes mellitus with other specified complication; Z79.4 - watermaster (current) use of insulin
--- NOTE | 2022-07-05 16:39 | DR.PROGNOT ---
Hospital Progress Notes - Progress Note for Day of: Progress Note Date: 07/05/22 - Chief Complaint Chief Complaint: dressings were changed .. hemovac was removed ..( no need for debridement ) - Past Medical Family Social History Past Med/Fam/Surg Hx: No changes since H&P Allergies: Allergies Penicillins Allergy (Verified 06/01/22 17:00) - Review Of Systems ROS: No change since H&P - Vital Signs Vital Signs: Temperature 98.1 F Pulse Rate 103 Respiratory Rate 19 Blood Pressure [Right Arm] 143/72 Blood Pressure 107/67 O2 Sat by Pulse Oximetry 99 - Physical Exam Oriented: Normal Eyes: Normal Ear: Normal Nose: Normal Throat: Normal Respiratory: Generalized, Diminished Cardiovascular: Tachycardia : Normal GI:Auscultation: Normal GI:Palpation: Normal GI: Tenderness: Normal Skin: Wound (SACRAL DECUBITUS ULCER, ABDOMINAL WOUND FROM RECENT SURGERY, CO LOSTOMY ) Musculoskeletal: Normal Psychiatric: Normal Mood Description: Calm Affect: Normal Speech Pattern: Clear, Appropriate - Laboratory and Diagnostics Result Diagrams: 07/05/22 04:36 07/05/22 04:36 Labs: 07/02/22 16:50 Blood Blood Culture - Preliminary 07/02/22 14:15 Blood Blood Culture - Preliminary Laboratory WBC 7.0 X10^3/uL (3.6-10.0) 07/05/22 04:36 RBC 3.43 X10^6/uL (4.7-6.0) L 07/05/22 04:36 Hgb 9.4 g/dL (13.5-18.0) L 07/05/22 04:36 Hct 28.3 % (42.0-54.0) L 07/05/22 04:36 MCV 82.7 fL (80.0-100.0) 07/05/22 04:36 MCH 27.3 pg (27.0-34.0) 07/05/22 04:36 MCHC 33.1 g/dL (33.0-35.0) 07/05/22 04:36 RDW 17.2 % (11.6-16.5) H 07/05/22 04:36 Plt Count 339 X10^3/uL (150.0-450.0) 07/05/22 04:36 MPV 8.5 fL (7.4-11.0) 07/05/22 04:36 Neut % (Auto) 56.2 % (42.0-75.0) 07/05/22 04:36 Lymph % (Auto) 27.1 % (21.0-51.0) 07/05/22 04:36 [place] % (Auto) 9.4 % (0.0-13.0) 07/05/22 04:36 Eos % (Auto) 6.0 % (0.9-2.9) H 07/05/22 04:36 Baso % (Auto) 1.3 % (0.2-1.0) H 07/05/22 04:36 Neut # (Auto) 3.9 x10^3/uL (2.2-4.8) 07/05/22 04:36 Lymph # (Auto) 1.9 X10^3/uL (1.3-2.9) 07/05/22 04:36 [place] # (Auto) 0.7 x10^3/uL (0.3-0.8) 07/05/22 04:36 Eos # (Auto) 0.4 x10^3/uL (0.0-0.2) H 07/05/22 04:36 Baso # (Auto) 0.1 X10^3/uL (0.0-0.1) 07/05/22 04:36 Absolute Nucleated RBC 0.0 /100WBC 07/05/22 04:36 PT 15.9 SECONDS (11.8-14.3) 07/03/22 05:13 INR Target Range - 07/03/22 05:13 INR 1.32 (0.8-1.3) H 07/03/22 05:13 APTT 34.9 SECONDS (22.9-36.5) 07/03/22 05:13 PTT Comment - 07/03/22 05:13 Sodium 142 mmol/L (136-145) 07/05/22 04:36 Corrected Sodium 144 mmol/L (136-145) 07/05/22 04:36 Potassium 5.4 mmol/L (3.5-5.1) H 07/05/22 04:36 Chloride 112 mmol/L (98-107) H 07/05/22 04:36 Carbon Dioxide 20.3 mmol/L (21-32) L 07/05/22 04:36 BUN 34 mg/dL (7-18) H 07/05/22 04:36 Creatinine 1.09 mg/dL (0.70-1.30) 07/05/22 04:36 Est GFR (MDRD) Af Amer > 60 (>60) 07/05/22 04:36 Est GFR (MDRD) Non-Af > 60 (>60) 07/05/22 04:36 Glucose 181 mg/dL (65-99) H 07/05/22 04:36 POC Glucose (mg/dL) 155 mg/dL (65-99) H 07/05/22 15:36 Lactic Acid 1.9 mmol/L (0.4-2.0) 07/03/22 07:25 Calcium 8.3 mg/dL (8.5-10.1) L 07/05/22 04:36 Corrected Calcium 9.3 mg/dL (8.5-10.1) 07/05/22 04:36 Magnesium 1.5 mg/dL (1.7-2.9) L 07/03/22 05:13 Total Bilirubin 0.30 mg/dL (0.2-1.0) 07/05/22 04:36 AST 11 Units/L (15-37) L 07/05/22 04:36 ALT 8 Units/L (12-78) L 07/05/22 04:36 Alkaline Phosphatase 86 Units/L (46-116) 07/05/22 04:36 Creatine Kinase 17 Units/L (39-308) L 07/03/22 05:13 Troponin I High Sens 49.0 ng/L (4.0-60.0) 07/03/22 05:13 Total Protein 6.1 g/dL (6.4-8.2) L 07/05/22 04:36 Albumin 2.7 g/dL (3.4-5.0) L 07/05/22 04:36 Globulin 3.4 g/dL (2.5-4.5) 07/05/22 04:36 Albumin/Globulin Ratio 0.8 Ratio (1.1-2.1) L 07/05/22 04:36 Specimen Type Clean catch urine 07/03/22 01:00 Urine Color Yellow (YELLOW) 07/03/22 01:00 Urine Appearance Clear (CLEAR) 07/03/22 01:00 Urine pH 5.0 (5.0 - 8.0) 07/03/22 01:00 Ur Specific [place] 1.025 (1.000-1.030) 07/03/22 01:00 Urine Protein 2+ (NEGATIVE) 07/03/22 01:00 Urine Glucose (UA) Negative (NEGATIVE) 07/03/22 01:00 Urine Ketones Negative (NEGATIVE) 07/03/22 01:00 Urine Blood 1+ (NEGATIVE) 07/03/22 01:00 Urine Nitrite Negative (NEGATIVE) 07/03/22 01:00 Urine Bilirubin 1+ (NEGATIVE) 07/03/22 01:00 Urine Urobilinogen Normal (NORMAL) 07/03/22 01:00 Ur Leukocyte Esterase 1+ (NEGATIVE) 07/03/22 01:00 Urine RBC 0-2 /HPF (0-3) 07/03/22 01:00 Urine WBC 0-2 /HPF (0-5) 07/03/22 01:00 Ur Squamous Epith Cells Few /HPF (NEGATIVE) 07/03/22 01:00 Urine Bacteria Negative /HPF (NEGATIVE) 07/03/22 01:00 Ur Culture Indicated? No/not indicated 07/03/22 01:00 Vancomycin Trough 6.2 ug/mL (15-20) L 07/04/22 08:09 SARS-CoV-2 (PCR) Negative (NEGATIVE) 07/02/22 16:00 - Assessment and Plan 1: sacral ulcer with good healing with hemovac .. open abdominal wounds are healing well . same wounvac and local care .. nutritional support and OOB . DVT prophylaxis .. - Problem Patient Problems: Patient Problems Sacral decubitus ulcer, stage III (Acute) L89.153 H/O colon cancer, stage IV (Chronic) Z85.038 Open abdominal wall wound (Acute) S31.109A Diabetes (Chronic) E11.9 Sepsis (Acute) A41.9 Acute renal failure (Acute) N17.9 Hypotension (Acute) I95.9 Hypoalbuminemia (Acute) E88.09
[2022-07-05] MEDS: SNACK - Diabetic Appropriate PO SCH (20:27)
[2022-07-05] MEDS ORDERED: ZOCOR TAB 20 MG PO SCH (21:00)
[2022-07-06] MEDS: DILAUDID INJ IVP PRN (00:30)
[2022-07-06] MEDS: NS 1,000 ML IV 1,000 ML IV SCH (03:30)
[2022-07-06 04:52] LABS: BASOPHILS # (AUTO) 0.1 X10^3/uL (0.0-0.1); BASOPHILS % (AUTO) 0.9 % (0.2-1.0); EOSINOPHILS # (AUTO) 0.3 x10^3/uL (0.0-0.2); EOSINOPHILS % (AUTO) 4.9 % (0.9-2.9); HEMATOCRIT 29.1 % (42.0-54.0); HEMOGLOBIN 9.6 g/dL (13.5-18.0); LYMPHOCYTES % (AUTO) 30.5 % (21.0-51.0); MEAN CORPUSCULAR HEMOGLOBIN 27.5 pg (27.0-34.0); MEAN CORPUSCULAR VOLUME 83.4 fL (80.0-100.0); MEAN PLATELET VOLUME 8.4 fL (7.4-11.0); MONOCYTES # (AUTO) 0.4 x10^3/uL (0.3-0.8); MONOCYTES % (AUTO) 6.8 % (0.0-13.0); NEUTROPHILS # (AUTO) 3.7 x10^3/uL (2.2-4.8); NEUTROPHILS % (AUTO) 56.9 % (42.0-75.0); RED BLOOD COUNT 3.48 X10^6/uL (4.7-6.0); RED CELL DISTRIBUTION WIDTH 17.3 % (11.6-16.5); WHITE BLOOD COUNT 6.4 X10^3/uL (3.6-10.0)
[2022-07-06 05:00] LABS: ALANINE AMINOTRANSFERASE 9 Units/L (12-78); ALBUMIN 2.8 g/dL (3.4-5.0); ALKALINE PHOSPHATASE 83 Units/L (46-116); ASPARTATE AMINO TRANSFERASE 10 Units/L (15-37); BLOOD UREA NITROGEN 22 mg/dL (7-18); CALCIUM 8.2 mg/dL (8.5-10.1); CARBON DIOXIDE 21.8 mmol/L (21-32); CHLORIDE 114 mmol/L (98-107); COR CA(FOR HYPOALB) 9.2 mg/dL (8.5-10.1); COR NA(FOR HYPERGLY) 144 mmol/L (136-145); CREATININE 0.88 mg/dL (0.70-1.30); SODIUM 143 mmol/L (136-145); eGFR NON BLACK RACES > 60 (>60)
[2022-07-06] MEDS ORDERED: PHARMACY COMMENT IV NR (08:30)
[2022-07-06 09:10] LABS: CREATININE 0.85 mg/dL (0.70-1.30); VANCOMYCIN,TROUGH 8.6 ug/mL (15-20)
[2022-07-06] MEDS: VANCOMYCIN IV *PREMIX 1 G/200 ML BAG 1 G/200 ML PIGGYBACK IV SCH (09:33)
[2022-07-06] MEDS: ALBUMIN HUMAN 25%- 100 ML 100 ML IV SCH (09:34)
[2022-07-06] MEDS: HEPARIN SODIUM INJ 5000 UNITS SC SCH (09:34)
[2022-07-06] MEDS: FLOMAX PO SCH (09:35)
[2022-07-06] MEDS: PROTONIX TAB 40 MG PO SCH (09:35)
[2022-07-06 10:38] VITALS: BP 151/89
== END 2022-07-06 11:20 | disposition home or self-care (01) | DRG 871 ==
LOC: ER 13:51 → ICU 19:20
PROVIDERS: ADMIT Internal Medicine; ATTEND Internal Medicine
DX: R53.1 Weakness; J90 Pleural effusion, not elsewhere classified; C18.9 Malignant neoplasm of colon, unspecified; Z79.4 Long term (current) use of insulin; J18.8 Other pneumonia, unspecified organism; R42 Dizziness and giddiness; E87.5 Hyperkalemia; C78.00 Secondary malignant neoplasm of unspecified lung; Z93.3 Colostomy status; T81.89XD Other complications of procedures, not elsewhere classified, subsequent encounter; Z20.822 Contact with and (suspected) exposure to COVID-19; N17.8 Other acute kidney failure; L89.153 Pressure ulcer of sacral region, stage 3; E86.0 Dehydration; E11.65 Type 2 diabetes mellitus with hyperglycemia; A41.89 Other specified sepsis; R79.1 Abnormal coagulation profile; R26.89 Other abnormalities of gait and mobility; E88.09 Other disorders of plasma-protein metabolism, not elsewhere classified; R65.20 Severe sepsis without septic shock; R94.31 Abnormal electrocardiogram [ECG] [EKG]

== ENCOUNTER 2022-08-03 17:21 | Observation (INO) ==
[2022-08-03] MEDS ORDERED: DUONEB 0.5 MG/3 MG (3 mL) NEB PRN (21:35)
[2022-08-03 21:59] LABS: BASOPHILS # (AUTO) 0.1 X10^3/uL (0.0-0.1); EOSINOPHILS # (AUTO) 0.3 x10^3/uL (0.0-0.2); MONOCYTES # (AUTO) 0.5 x10^3/uL (0.3-0.8)
[2022-08-03 22:00] LABS: BASOPHILS % (AUTO) 1.1 % (0.2-1.0); EOSINOPHILS % (AUTO) 3.8 % (0.9-2.9); HEMATOCRIT 39.9 % (42.0-54.0); HEMOGLOBIN 13.2 g/dL (13.5-18.0); LYMPHOCYTES # (AUTO) 2.5 X10^3/uL (1.3-2.9); LYMPHOCYTES % (AUTO) 29.4 % (21.0-51.0); MEAN CORPUSCULAR HEMOGLOBIN 27.1 pg (27.0-34.0); MEAN CORPUSCULAR VOLUME 82.3 fL (80.0-100.0); MEAN PLATELET VOLUME 8.7 fL (7.4-11.0); MONOCYTES % (AUTO) 6.4 % (0.0-13.0); NEUTROPHILS % (AUTO) 59.3 % (42.0-75.0); RED BLOOD COUNT 4.85 X10^6/uL (4.7-6.0); RED CELL DISTRIBUTION WIDTH 17.3 % (11.6-16.5)
[2022-08-03 22:09] LABS: ALANINE AMINOTRANSFERASE 16 Units/L (12-78); ALBUMIN 3.7 g/dL (3.4-5.0); ALKALINE PHOSPHATASE 91 Units/L (46-116); ASPARTATE AMINO TRANSFERASE 13 Units/L (15-37); BLOOD UREA NITROGEN 57 mg/dL (7-18); CARBON DIOXIDE 18.5 mmol/L (21-32); CHLORIDE 102 mmol/L (98-107); COR NA(FOR HYPERGLY) 134 mmol/L (136-145); CREATININE 1.37 mg/dL (0.70-1.30); SODIUM 133 mmol/L (136-145); TOTAL PROTEIN 7.7 g/dL (6.4-8.2); eGFR NON BLACK RACES 55 (>60)
[2022-08-03] MEDS: NS 1,000 ML IV 1,000 ML IV SCH (22:15)
[2022-08-03 22:20] LABS: WHITE BLOOD COUNT 9.7 X10^3/uL (3.6-10.0)
[2022-08-03 22:21] LABS: ANISOCYTOSIS SLIGHT; PLATELET MORPHOLOGY COMMENT NORMAL (NORMAL); SCHISTOCYTES SLIGHT
[2022-08-03] MEDS ORDERED: KAYEXALATE SUSP ONE (22:46)
[2022-08-03] MEDS: KAYEXALATE SUSP PO SCH (22:52)
[2022-08-04 00:19] LABS: BILIRUBIN,URINE NEGATIVE (NEGATIVE); BLOOD/HEMOGLOBIN,URINE NEGATIVE (NEGATIVE); GLUCOSE, URINE NEGATIVE (NEGATIVE); KETONES,URINE NEGATIVE (NEGATIVE); LEUKOCYTE ESTERASE ,URINE NEGATIVE (NEGATIVE); NITRITES,URINE NEGATIVE (NEGATIVE); PROTEIN,URINE 1+ (NEGATIVE); UROBILINOGEN,URINE NORMAL (NORMAL)
[2022-08-04 00:31] LABS: APPEARANCE,URINE CLEAR (CLEAR); COLOR,URINE YELLOW (YELLOW)
[2022-08-04 00:32] LABS: BACTERIA,URINE TRACE /HPF (NEGATIVE); HYALINE CASTS, URINE RARE /LPF (NEGATIVE); RBC,URINE NONE SEEN /HPF (0-3); SQUAMOUS EPITHELIAL CELL,UR RARE /HPF (NEGATIVE)
[2022-08-04 05:58] LABS: BASOPHILS # (AUTO) 0.1 X10^3/uL (0.0-0.1); BASOPHILS % (AUTO) 1.3 % (0.2-1.0); EOSINOPHILS # (AUTO) 0.4 x10^3/uL (0.0-0.2); EOSINOPHILS % (AUTO) 5.3 % (0.9-2.9); HEMATOCRIT 34.3 % (42.0-54.0); HEMOGLOBIN 11.4 g/dL (13.5-18.0); LYMPHOCYTES # (AUTO) 2.5 X10^3/uL (1.3-2.9); LYMPHOCYTES % (AUTO) 33.4 % (21.0-51.0); MEAN CORPUSCULAR HEMOGLOBIN 27.3 pg (27.0-34.0); MEAN CORPUSCULAR HGB CONC 33.2 g/dL (33.0-35.0); MEAN CORPUSCULAR VOLUME 82.2 fL (80.0-100.0); MEAN PLATELET VOLUME 8.6 fL (7.4-11.0); MONOCYTES # (AUTO) 0.7 x10^3/uL (0.3-0.8); MONOCYTES % (AUTO) 9.9 % (0.0-13.0); NEUTROPHILS # (AUTO) 3.8 x10^3/uL (2.2-4.8); NEUTROPHILS % (AUTO) 50.1 % (42.0-75.0); RED BLOOD COUNT 4.17 X10^6/uL (4.7-6.0); RED CELL DISTRIBUTION WIDTH 17.1 % (11.6-16.5); WHITE BLOOD COUNT 7.5 X10^3/uL (3.6-10.0)
[2022-08-04 06:04] LABS: ALANINE AMINOTRANSFERASE 13 Units/L (12-78); ALBUMIN 3.1 g/dL (3.4-5.0); ALKALINE PHOSPHATASE 76 Units/L (46-116); ASPARTATE AMINO TRANSFERASE 13 Units/L (15-37); BLOOD UREA NITROGEN 53 mg/dL (7-18); CALCIUM 9.5 mg/dL (8.5-10.1); CARBON DIOXIDE 18.1 mmol/L (21-32); CHLORIDE 107 mmol/L (98-107); COR CA(FOR HYPOALB) 10.2 mg/dL (8.5-10.1); CREATININE 1.18 mg/dL (0.70-1.30); SODIUM 136 mmol/L (136-145); TOTAL PROTEIN 6.6 g/dL (6.4-8.2); eGFR NON BLACK RACES > 60 (>60)
--- NOTE | 2022-08-04 06:52 | RAD ---
CHEST, 1 VIEWHISTORY: SOBStudy: Single view of the chest.Comparison:CT July 03, 2022Findings:The cardiomediastinal silhouette is normal.Re-demonstration of multifocal irregular opacities. Osseous structures demonstrate no acute abnormality.IMPRESSION:1. Multifocal irregular opacities consistent with patient's known metastatic disease. Superimposed infection cannot be excluded on this examination and should be evaluated clinically.Electronically signed by: SUNITHA COREAS (Aug 04, 2022 06:50:13)
[2022-08-04] MEDS ORDERED: ULTRAM PO PRN (09:51)
[2022-08-04] MEDS: PERCOCET TAB 5/325 MG PO PRN ×2 (10:36→18:51)
[2022-08-04] MEDS: NS 1,000 ML IV 1,000 ML IV SCH ×2 (10:36→23:41)
--- NOTE | 2022-08-04 11:13 | DR.H&P ---
H&P - History & Physical for Day of: H&P Date: 08/03/22 - Chief Complaint Chief Complaint: WEAKNESS, DECREASED ORAL INTAKE - History of Present Illness History of Present Illness: PATIENT IS A 66 YEAR OLD MALE, PATIENT OF OURS. HE PRESENTED TO THE HOSPITAL A DIRECT ADMISSION FOR TREATMENT OF DEHYDRATION, INCREASING WEAKNESS, DECREASED ORAL INTAKE, FAILURE TO THRIVE. PATIENT HAS A CURRENT HISTORY OF STAGE 4 COLON CANCER WITH METS TO THE LUNGS. HE HAD A COLON RESECTION WITH COLOSTOMY IN APRIL. HE HAS ONLY BEEN ABLE TO UNDERGO TWO CHEMO TREATMENTS DUE TO SEVERE WEAKNESS AND BEING HOSPITALIZED. PATIENT WAS HOSPITALIZED ABOUT A MONTH AGO FOR TREATMENT OF SEPSIS, ACUTE RENAL FAILURE, AND HYPOTENSION. HE HAS A WOUND VAC IN PLACE TO THE ABDOMEN. THERE IS ALSO A WOUND NOTED TO THE SACRUM. AND VISITING NURSES HAVE BEEN FOLLOWING HIM AN OUTPATIENT FOR TREATMENT OF WOUNDS. ON ARRIVAL TO THE HOSPITAL, VITALS WERE 97.7-735-85-100%-97/62. HE UTILIZES HOME OXYGEN VIA NASAL AT 2 LPM. LABS WERE OBTAINED. WBC 9.7, RBC 4.85, HGB 13.2, HCT 39.9, PLT COUNT 391, SODIUM 133, POTASSIUM 6.1, CHLORIDE 102, CARBON DIOXIDE 18.5, BUN 57, CREATININE 1.37, GLUCOSE 143, AST 13, ALT 16, ALK PHOS 91, TOTAL PROTEIN 7.7, ALBUMIN 3.7. URINALYSIS WAS OBTAINED AND WAS UNREMARKABLE. SACRAL WOUND WAS CULTURED. EKG WAS OBTAINED AND REVEALED NORMAL SINUS RHYTHM WITH HR 86. CHEST XRAY WAS OBTAINED AND REVEALED: 1. Multifocal irregular opacities consistent with patient's known metastatic disease. Superimposed infection cannot be excluded on this examination and should be evaluated clinically. HE WAS STARTED ON NORMAL SALINE AT 80 ML/HR, DUONEBS TID PRN, AND HIS HOME MEDICATIONS OF ASPIRIN, OMNICEF, COZAAR, METFORMIN, METOPROLOL, PERCOCET, PROTONIX, ZOCOR, AND TRAMADOL WERE RESUMED. HE WAS GIVEN A ONE TIME DOSE OF KAYEXALATE DUE TO HYPERKALEMIA. WE WILL CONSULT FOR REEVALUATION OF WOUNDS AND WOUND VAC. OTHERWISE, WE WILL FOLLOW-UP WITH AM LABS AND CONTINUE TO MONITOR. TIME SPENT ON CLINICAL ASSESSMENT, REVIWING LABS AND IMAGING, DECISION MAKING, AND DOCUMENTATION GREATER THAN 75 MINUTES. - Past Medical History Past Medical History: Hypertension, Diabetes, Arthritis Additional Medical History: COLON CANCER - Past Surgical History Surgical History: Bowel Resection - Family History Family Medical History: Diabetes Mellitus - Social History Does patient currently use any type of tobacco product: No Have you used tobacco products in the last 12 months: No Type of Tobacco Use: None Does any household member use tobacco: No Alcohol Use: None Drug Use: None - Medications Home Medications: Penicillins Allergy (Verified 06/01/22 17:00) CONTINUE taking the following medications losartan 25 mg tablet (Cozaar) 25 mg PO HS 08/04/22 [History] oxycodone-acetaminophen 5 mg-325 mg tablet 2 ea PO Q6H PRN Pain 08/04/22 [History] tamsulosin 0.4 mg capsule (Flomax) 0.4 mg PO HS 08/04/22 [History] tramadol 50 mg tablet 50 mg PO Q6H PRN Breakthrough Pain, Moderate 08/04/22 [History] - Review of Systems Constitutional: Weakness Eyes: No Symptoms Reported ENT: No Symptoms Reported Respiratory: No Symptoms Reported Cardiovascular: No Symptoms Reported Gastrointestinal: No Symptoms Reported Genitourinary: No Symptoms Reported Musculoskeletal: No Symptoms Reported Skin: Wound (ABDOMEN AND SACRUM ) Neurological: Weakness - Physical Exam Vital Signs: Temperature 98 F Pulse Rate [Left Brachial] 88 Respiratory Rate 18 Blood Pressure [Right Arm] 143/72 Blood Pressure [Left Arm] 92/52 Blood Pressure 151/89 O2 Sat by Pulse Oximetry 97 Oriented: Normal Eyes: Normal Ear: Normal Nose: Normal Throat: Normal Respiratory: Diminished Throughout Cardiovascular: Normal : Normal Auscultation: Bowel Sounds: Normal Palpation: Normal Tenderness: Diffuse, Mild Skin: Wound (ABDOMINAL WOUND WITH WOUND VAC, SACRAL PRESSURE ULCER ) Musculoskeletal: Normal Psychiatric: Normal Mood Description: Calm Affect: Normal Speech Pattern: Clear - Assessment/Plan (1) Acute dehydration Status: Acute Plan: ADMIT, NORMAL SALINE AT 80 ML/HR, DUONEBS TID PRN, AND HIS HOME MEDICATIONS OF ASPIRIN, OMNICEF, COZAAR, METFORMIN, METOPROLOL, PERCOCET, PROTONIX, ZOCOR, AND TRAMADOL WERE RESUMED. (2) Hyponatremia Status: Acute (3) Hyperkalemia Status: Acute (4) Generalized weakness Status: Acute (5) Failure to thrive Qualifiers: Failure to thrive age range: in adult Qualified Code(s): R62.7 - Adult failure to thrive Status: Acute (6) Sacral decubitus ulcer, stage III Status: Acute - Allergies Allergies/Adverse Reactions: Allergies Allergy/AdvReac Type Severity Reaction Status Date / Time Penicillins Allergy Verified 06/01/22 17:00
[2022-08-04] MEDS ORDERED: GLUCOPHAGE ONE (17:15)
[2022-08-04] MEDS: GLUCOPHAGE PO SCH (17:18)
[2022-08-04 18:51] VITALS: BMI 23.3
[2022-08-04] MEDS ORDERED: COZAAR PO SCH (21:00)
[2022-08-04] MEDS ORDERED: LOPRESSOR TAB 25 MG PO SCH (21:00)
[2022-08-04] MEDS ORDERED: ASPIRIN 81 MG CHEWTAB PO SCH (21:00)
[2022-08-04] MEDS ORDERED: PROTONIX TAB 40 MG PO SCH (21:00)
[2022-08-04] MEDS ORDERED: ZOCOR TAB 20 MG PO SCH (21:00)
[2022-08-04] MEDS: OMNICEF CAP 300 MG PO SCH (21:07)
[2022-08-04] MEDS: KAYEXALATE SUSP PO SCH (23:00)
[2022-08-05] MEDS ORDERED: GLUCOPHAGE ONE (06:01)
[2022-08-05] MEDS: GLUCOPHAGE PO SCH (06:04)
[2022-08-05 06:30] LABS: BASOPHILS # (AUTO) 0.1 X10^3/uL (0.0-0.1); BASOPHILS % (AUTO) 1.1 % (0.2-1.0); EOSINOPHILS # (AUTO) 0.5 x10^3/uL (0.0-0.2); EOSINOPHILS % (AUTO) 5.9 % (0.9-2.9); HEMATOCRIT 34.8 % (42.0-54.0); HEMOGLOBIN 11.2 g/dL (13.5-18.0); LYMPHOCYTES # (AUTO) 1.9 X10^3/uL (1.3-2.9); LYMPHOCYTES % (AUTO) 24.4 % (21.0-51.0); MEAN CORPUSCULAR HEMOGLOBIN 27.1 pg (27.0-34.0); MEAN CORPUSCULAR HGB CONC 32.3 g/dL (33.0-35.0); MEAN CORPUSCULAR VOLUME 83.9 fL (80.0-100.0); MEAN PLATELET VOLUME 8.6 fL (7.4-11.0); MONOCYTES # (AUTO) 0.6 x10^3/uL (0.3-0.8); MONOCYTES % (AUTO) 8.2 % (0.0-13.0); NEUTROPHILS # (AUTO) 4.7 x10^3/uL (2.2-4.8); NEUTROPHILS % (AUTO) 60.4 % (42.0-75.0); RED BLOOD COUNT 4.15 X10^6/uL (4.7-6.0); RED CELL DISTRIBUTION WIDTH 17.4 % (11.6-16.5); WHITE BLOOD COUNT 7.7 X10^3/uL (3.6-10.0)
[2022-08-05 06:40] LABS: ALANINE AMINOTRANSFERASE 14 Units/L (12-78); ALBUMIN 2.9 g/dL (3.4-5.0); ALKALINE PHOSPHATASE 74 Units/L (46-116); ASPARTATE AMINO TRANSFERASE 10 Units/L (15-37); BLOOD UREA NITROGEN 35 mg/dL (7-18); CALCIUM 8.9 mg/dL (8.5-10.1); CARBON DIOXIDE 18.6 mmol/L (21-32); CHLORIDE 111 mmol/L (98-107); COR CA(FOR HYPOALB) 9.8 mg/dL (8.5-10.1); CREATININE 1.07 mg/dL (0.70-1.30); SODIUM 139 mmol/L (136-145); TOTAL PROTEIN 6.3 g/dL (6.4-8.2); eGFR NON BLACK RACES > 60 (>60)
[2022-08-05 08:20] VITALS: BP 126/80
[2022-08-05] MEDS: OMNICEF CAP 300 MG PO SCH (09:31)
== END 2022-08-05 11:25 | disposition home health service (06) ==
LOC: MED/SURG
PROVIDERS: ADMIT Internal Medicine; ATTEND Internal Medicine
DX: E87.5 Hyperkalemia; L89.153 Pressure ulcer of sacral region, stage 3; Z93.3 Colostomy status; E87.1 Hypo-osmolality and hyponatremia; B95.7 Other staphylococcus as the cause of diseases classified elsewhere; E11.65 Type 2 diabetes mellitus with hyperglycemia; R53.1 Weakness; E86.0 Dehydration; I10 Essential (primary) hypertension; B96.89 Other specified bacterial agents as the cause of diseases classified elsewhere; E87.8 Other disorders of electrolyte and fluid balance, not elsewhere classified; C18.9 Malignant neoplasm of colon, unspecified; C78.00 Secondary malignant neoplasm of unspecified lung

== ENCOUNTER 2022-09-04 17:27 | Observation (INO) ==
[2022-09-04] MEDS ORDERED: NS 1,000 ML IV 1,000 ML IV ONE ×2 (17:37→19:07)
--- NOTE | 2022-09-04 17:37 | DR.GENAD ---
HPI Time Seen Time Seen by Provider: 09/04/22 17:48 Complaint/Symptoms Chief Complaint Doctors Comments: 67 y/o male presents for increasing weakness. Pt with a h/o metastatic colon ca. Has not been eating , drinking well over the past several days, having increasing weakness. Denies any pain. No report of fever, chills, cough, dyspnea, nausea, vomiting, diarrhea. Has not urinated all day. Nurses notes reviewed Nurses Notes Review: Yes Source History Provided: Patient and Significant Other PMH PMH Past Medical History: Arthritis, Diabetes and Hypertension Past Medical History Comment: Metastatic colon ca Past Surgical History: Yes Surgical History: Bowel Resection Family History Family Medical History: Diabetes Mellitus Social History Do you use any recreational Drugs:: No ROS Review of Systems Constitutional: Malaise and Weakness Eyes: No Symptoms Reported ENTM: No Symptoms Reported Respiratoy: No Symptoms Reported Cardiovascular: No Symptoms Reported Gastrointestinal/Abdominal: No Symptoms Reported Genitourinary: Other (decreased urinary output) Neurological: Weakness Musculoskeletal: No Symptoms Reported Integumentary: No Symptoms Reported Hematologic/Lymphatic: No Symptoms Reported Psychiatric: No Symptoms Reported All Other Systems: Reviewed and Negative PE Vital Signs Vitals: Temperature 97.9 F Pulse Rate 114 Respiratory Rate 22 Blood Pressure [Right Arm] 143/72 Blood Pressure [Left Arm] 126/80 Blood Pressure 95/53 O2 Sat by Pulse Oximetry 97 General General Appearance: Alert and Other (appears weak) Eyes Eye exam: PERRL and EOMI ENT ENT Exam: Mucous Membranes Moist Neck Neck Exam: Normal Inspection and Full ROM Respiratory Respiratory Exam: Normal Lung Sounds Bilat; negative Accessory Muscle Use or Respiratory Distress Cardiovascular Cardiovascular Exam: Regular Rate, Normal Rhythm and Normal Heart Sounds Abdominal Exam Abdominal Exam: Normal Inspection, Normal Bowel Sounds and Soft; negative Tenderness Extremities Extremities Exam: Normal Inspection Neurologic Neurological Exam: Alert, Oriented X3 and CN II-XII Intact; negative Motor Sensory Deficit Skin Skin Exam: Warm, Dry and Other (poor skin turgor) MDM Differential Diagnosis Differential Diagnosis: Dehydration, electrolyte abnormality, failure to thrive COURSE Treatment Treatment: 67 y/o male with h/o metastatic colon ca, presents with probable dehydration. Has not been eating, drinking well over the past week. W/u iniitiated. Given IV fluids. 1849 - bicarb low at 13, potassium up at 5.7. Pt given 1 amp of bicarb, additional IV fluids. Recommend admission for further treatment , hydration. Discussed with Dr Hanson (covering for Dr Alfonso), accepts the admission. [facility] Labs Reviewed Laboratory Results Reviewed?: Yes Result Diagrams: 09/04/22 17:40 09/04/22 17:40 Laboratory: WBC 12.5 X10^3/uL (3.6-10.0) H 09/04/22 17:40 RBC 5.22 X10^6/uL (4.7-6.0) 09/04/22 17:40 Hgb 14.1 g/dL (13.5-18.0) 09/04/22 17:40 Hct 43.8 % (42.0-54.0) 09/04/22 17:40 MCV 83.8 fL (80.0-100.0) 09/04/22 17:40 MCH 27.0 pg (27.0-34.0) 09/04/22 17:40 MCHC 32.2 g/dL (33.0-35.0) L 09/04/22 17:40 RDW 19.0 % (11.6-16.5) H 09/04/22 17:40 Plt Count 472 X10^3/uL (150.0-450.0) H 09/04/22 17:40 MPV 8.2 fL (7.4-11.0) 09/04/22 17:40 Neut % (Auto) 65.8 % (42.0-75.0) 09/04/22 17:40 Lymph % (Auto) 22.4 % (21.0-51.0) 09/04/22 17:40 Camp % (Auto) 7.6 % (0.0-13.0) 09/04/22 17:40 Eos % (Auto) 2.8 % (0.9-2.9) 09/04/22 17:40 Baso % (Auto) 1.4 % (0.2-1.0) H 09/04/22 17:40 Neut # (Auto) 8.2 x10^3/uL (2.2-4.8) H 09/04/22 17:40 Lymph # (Auto) 2.8 X10^3/uL (1.3-2.9) 09/04/22 17:40 Camp # (Auto) 0.9 x10^3/uL (0.3-0.8) H 09/04/22 17:40 Eos # (Auto) 0.4 x10^3/uL (0.0-0.2) H 09/04/22 17:40 Baso # (Auto) 0.2 X10^3/uL (0.0-0.1) H 09/04/22 17:40 Absolute Nucleated RBC 0.0 /100WBC 09/04/22 17:40 Sodium 136 mmol/L (136-145) 09/04/22 17:40 Corrected Sodium 137 mmol/L (136-145) 09/04/22 17:40 Potassium 5.7 mmol/L (3.5-5.1) H 09/04/22 17:40 Chloride 106 mmol/L (98-107) 09/04/22 17:40 Carbon Dioxide 13.1 mmol/L (21-32) L* 09/04/22 17:40 BUN 82 mg/dL (7-18) H 09/04/22 17:40 Creatinine 1.62 mg/dL (0.70-1.30) H 09/04/22 17:40 Est GFR (MDRD) Af Amer 55 (>60) L 09/04/22 17:40 Est GFR (MDRD) Non-Af 45 (>60) L 09/04/22 17:40 Glucose 131 mg/dL (65-99) H 09/04/22 17:40 Lactic Acid 1.6 mmol/L (0.4-2.0) 09/04/22 17:40 Calcium 10.7 mg/dL (8.5-10.1) H 09/04/22 17:40 Corrected Calcium 11.3 mg/dL (8.5-10.1) H 09/04/22 17:40 Total Bilirubin 0.30 mg/dL (0.2-1.0) 09/04/22 17:40 AST 17 Units/L (15-37) 09/04/22 17:40 ALT 14 Units/L (12-78) 09/04/22 17:40 Alkaline Phosphatase 87 Units/L (46-116) 09/04/22 17:40 Total Protein 7.5 g/dL (6.4-8.2) 09/04/22 17:40 Albumin 3.3 g/dL (3.4-5.0) L 09/04/22 17:40 Globulin 4.2 g/dL (2.5-4.5) 09/04/22 17:40 Albumin/Globulin Ratio 0.8 Ratio (1.1-2.1) L 09/04/22 17:40 Lipase 67 Units/L (73-393) L 09/04/22 17:40 Lab c/w dehydration. XRAY XRAY Interpreted by: Radiologist X-ray Results: + chronic worsening changes, metastatic disease. Opioid Opioid Risk Tool Age (Petey box if 16-45): No History of Preadolescent Sexual Abuse: No Total: 0 Total Score Risk Category: Low Risk Copyright: [facility] predicting aberrant behaviors Discharge Plan Diagnosis Discharge Problem: Acute dehydration, Colon carcinoma metastatic to multiple sites Discharge Plan Patient Disposition: 30 STILL A PATIENT Condition: Stable Prescriptions: No Action aspirin 81 mg Tablet,Delayed Release (Dr/Ec) 81 mg PO HS pantoprazole [Protonix] 40 mg Tablet,Delayed Release (Dr/Ec) 40 mg PO HS simvastatin [Zocor] 20 mg Tablet 20 mg PO HS metformin 1,000 mg Tablet 1,000 mg PO BID metoprolol tartrate 25 mg Tablet 25 mg PO BID tamsulosin [Flomax] 0.4 mg Capsule 0.4 mg PO HS tramadol 50 mg Tablet 50 mg PO Q6H PRN (Reason: Breakthrough Pain, Moderate) oxycodone-acetaminophen 5-325 mg tablet 1 ea PO Q6H PRN (Reason: Pain) Rx Instructions: take one tablet every 6 hours as needed for pain losartan [Cozaar] 25 mg tablet 25 mg PO HS Rx Instructions: take one tablet daily Health Concerns: Post Hospitalization: new medications and changes needed to prevent readmission or further decline. Pt educated and given instructions on all concerns. Plan of Treatment: Continue with present treatment and follow up plan. Pt is to keep follow up appointment as instructed and take medications as ordered. Orders to Discharge Patient Discharge Orders: Transfer (Routine); Ordered 09/04/22 Ordered By: Mahad Martinez Follow ups/Referrals Follow ups/Referrals: [facility],None [Primary Care Provider] - 3 days
[2022-09-04] MEDS ORDERED: NS 1,000 ML IV 1,000 ML ONE ×2 (17:45→19:51)
[2022-09-04 17:50] LABS: BASOPHILS # (AUTO) 0.2 X10^3/uL (0.0-0.1); BASOPHILS % (AUTO) 1.4 % (0.2-1.0); EOSINOPHILS # (AUTO) 0.4 x10^3/uL (0.0-0.2); EOSINOPHILS % (AUTO) 2.8 % (0.9-2.9); HEMATOCRIT 43.8 % (42.0-54.0); HEMOGLOBIN 14.1 g/dL (13.5-18.0); LYMPHOCYTES # (AUTO) 2.8 X10^3/uL (1.3-2.9); LYMPHOCYTES % (AUTO) 22.4 % (21.0-51.0); MEAN CORPUSCULAR HGB CONC 32.2 g/dL (33.0-35.0); MEAN CORPUSCULAR VOLUME 83.8 fL (80.0-100.0); MEAN PLATELET VOLUME 8.2 fL (7.4-11.0); MONOCYTES # (AUTO) 0.9 x10^3/uL (0.3-0.8); MONOCYTES % (AUTO) 7.6 % (0.0-13.0); NEUTROPHILS # (AUTO) 8.2 x10^3/uL (2.2-4.8); NEUTROPHILS % (AUTO) 65.8 % (42.0-75.0); RED BLOOD COUNT 5.22 X10^6/uL (4.7-6.0); WHITE BLOOD COUNT 12.5 X10^3/uL (3.6-10.0)
[2022-09-04 18:05] LABS: ALBUMIN 3.3 g/dL (3.4-5.0); CALCIUM 10.7 mg/dL (8.5-10.1); COR CA(FOR HYPOALB) 11.3 mg/dL (8.5-10.1); CREATININE 1.62 mg/dL (0.70-1.30); TOTAL PROTEIN 7.5 g/dL (6.4-8.2)
--- NOTE | 2022-09-04 18:08 | RAD ---
CHEST, 1 VIEWHISTORY: weaknessStudy: Single view of the chest.Comparison:August 03, 2022Findings:The cardiomediastinal silhouette is normal.Diffuse nodular and reticular opacities which are stable to slightly worsened when compared to prior. Osseous structures demonstrate no acute abnormality.IMPRESSION:1. Worsening nodular and reticular opacities which may represent worsening infection superimposed upon malignancy.Electronically signed by: SUNITHA COREAS (Sep 04, 2022 18:06:27)
[2022-09-04 18:09] LABS: CARBON DIOXIDE 13.1 mmol/L (21-32); LACTIC ACID 1.6 mmol/L (0.4-2.0)
[2022-09-04] MEDS ORDERED: SODIUM BICARBONATE 8.4% INJ ADULT IVP ONE (18:47)
[2022-09-04] MEDS ORDERED: SODIUM BICARBONATE 8.4% INJ ADULT ONE (18:55)
[2022-09-04 20:06] LABS: BILIRUBIN,URINE NEGATIVE (NEGATIVE); BLOOD/HEMOGLOBIN,URINE NEGATIVE (NEGATIVE); GLUCOSE, URINE NEGATIVE (NEGATIVE); KETONES,URINE NEGATIVE (NEGATIVE); LEUKOCYTE ESTERASE ,URINE NEGATIVE (NEGATIVE); NITRITES,URINE NEGATIVE (NEGATIVE); PROTEIN,URINE 1+ (NEGATIVE); UROBILINOGEN,URINE NORMAL (NORMAL)
[2022-09-04 20:16] LABS: APPEARANCE,URINE CLEAR (CLEAR); BACTERIA,URINE TRACE /HPF (NEGATIVE); COLOR,URINE YELLOW (YELLOW); RBC,URINE 0-2 /HPF (0-3); SQUAMOUS EPITHELIAL CELL,UR RARE /HPF (NEGATIVE)
[2022-09-04 20:17] LABS: HYALINE CASTS, URINE FEW /LPF (NEGATIVE)
[2022-09-04] MEDS ORDERED: ULTRAM PO PRN (20:49)
[2022-09-04] MEDS: ASPIRIN EC 81 MG PO SCH (21:30)
[2022-09-04] MEDS: ZOCOR TAB 20 MG PO SCH (21:30)
[2022-09-04] MEDS: FLOMAX PO SCH (21:31)
[2022-09-04] MEDS: PROTONIX TAB 40 MG PO SCH (21:31)
[2022-09-04] MEDS: D5 1/2 NS 1,000 ML 1,000 ML IV SCH ×2 (21:32→21:36)
[2022-09-04 21:42] VITALS: BMI 23.6
[2022-09-05] MEDS: D5 1/2 NS 1,000 ML 1,000 ML IV SCH ×5 (04:00→21:00)
[2022-09-05 05:52] LABS: BASOPHILS # (AUTO) 0.1 X10^3/uL (0.0-0.1); BASOPHILS % (AUTO) 1.4 % (0.2-1.0); EOSINOPHILS # (AUTO) 0.5 x10^3/uL (0.0-0.2); HEMATOCRIT 38.5 % (42.0-54.0); HEMOGLOBIN 12.6 g/dL (13.5-18.0); LYMPHOCYTES # (AUTO) 1.6 X10^3/uL (1.3-2.9); LYMPHOCYTES % (AUTO) 18.3 % (21.0-51.0); MEAN CORPUSCULAR HEMOGLOBIN 26.8 pg (27.0-34.0); MEAN CORPUSCULAR HGB CONC 32.7 g/dL (33.0-35.0); MEAN CORPUSCULAR VOLUME 82.2 fL (80.0-100.0); MEAN PLATELET VOLUME 8.6 fL (7.4-11.0); MONOCYTES # (AUTO) 0.7 x10^3/uL (0.3-0.8); MONOCYTES % (AUTO) 8.4 % (0.0-13.0); NEUTROPHILS # (AUTO) 5.6 x10^3/uL (2.2-4.8); NEUTROPHILS % (AUTO) 65.9 % (42.0-75.0); RED BLOOD COUNT 4.68 X10^6/uL (4.7-6.0); RED CELL DISTRIBUTION WIDTH 18.5 % (11.6-16.5); WHITE BLOOD COUNT 8.6 X10^3/uL (3.6-10.0)
[2022-09-05 06:07] LABS: ALANINE AMINOTRANSFERASE 12 Units/L (12-78); ALBUMIN 2.7 g/dL (3.4-5.0); ALKALINE PHOSPHATASE 74 Units/L (46-116); ASPARTATE AMINO TRANSFERASE 16 Units/L (15-37); BLOOD UREA NITROGEN 64 mg/dL (7-18); CALCIUM 9.2 mg/dL (8.5-10.1); CARBON DIOXIDE 16.6 mmol/L (21-32); CHLORIDE 108 mmol/L (98-107); COR CA(FOR HYPOALB) 10.2 mg/dL (8.5-10.1); COR NA(FOR HYPERGLY) 139 mmol/L (136-145); CREATININE 1.22 mg/dL (0.70-1.30); SODIUM 138 mmol/L (136-145); TOTAL PROTEIN 6.1 g/dL (6.4-8.2); eGFR NON BLACK RACES > 60 (>60)
[2022-09-05] MEDS: LOVENOX INJ 40 MG SYR SC SCH (11:11)
[2022-09-05] MEDS: PERCOCET TAB 5/325 MG PO PRN ×2 (13:20→21:24)
--- NOTE | 2022-09-05 14:47 | CT ---
HISTORY:Weakness, confusion, history of metastatic cancerStudy: CT brain without contrastComparison:NoneTechnique:Multiple axial images of the brain were obtained without administration of IV contrast. Dose reduction techniques including Automated Exposure Control (AEC) and adjustment of mA and kV were utilized.Findings:There is cerebral volume loss with nonspecific white matter hypoattenuation that can be associated with chronic microvascular ischemic changes. There is calcified plaque within the carotid and vertebral arteries. No evidence of acute hemorrhage, midline shift, mass effect or abnormal extra-axial fluid collection. The ventricular system is symmetric and nondilated.The soft tissues and osseous structures are unremarkable. The visualized paranasal sinuses are clear.IMPRESSION:Cerebral volume loss and nonspecific white matter changes as described likely due to chronic microvascular disease. No acute intracranial hemorrhage.Electronically signed by: REINA GARZA (Sep 05, 2022 14:44:55)
--- NOTE | 2022-09-05 14:52 | CT ---
HISTORY:Metastatic colon cancerStudy: CT chest with contrastComparison: Radiograph 09/04/2022, chest CT 07/03/2022Technique: Multiple axial images of the chest were obtained from the thoracic inlet to the upper abdomen after the administration of IV contrast. Dose reduction techniques including Automated Exposure Control (AEC) and adjustment of mA and kV were utilized.Findings:There is a hydro pneumothorax on the left of approximately 30-40 %. Emphysematous changes are present. There are diffuse nodules throughout both lungs, with mild interval worsening. Central airways are patent. The heart and aorta are normal in size. No large central pulmonary embolism identified. There are enlarged AP window lymph nodes for example axial 5 measuring 1.6 x 1.4 centimeters and enlarged subcarinal lymph node axial 8 measuring 2.2 x 1.7 centimeters that appears stable.The soft tissues and osseous structures appear intact. See separately dictated abdomen/pelvis CT report.IMPRESSION:Approximately 30-40 % left hydro pneumothorax.Diffuse nodules throughout both lungs consistent with metastatic disease with mild interval progression since previous CT exam. Enlarged mediastinal lymph nodes appear grossly stable.Electronically signed by: REINA GARZA (Sep 05, 2022 14:51:49)
--- NOTE | 2022-09-05 14:58 | CT ---
HISTORY:Metastatic colon cancerStudy: CT abdomen and pelvis with contrastComparison:Chest CT same dayTechnique: Multiple axial images of the abdomen and pelvis were obtained with IV contrast. Oral contrast was administered. Dose reduction techniques including Automated Exposure Control (AEC) and adjustment of mA and kV were utilized.FINDINGS:Diffuse nodules noted throughout the visualized lungs. There is a hydro pneumothorax at the left lung base. Refer to separately dictated chest CT report. The spleen, liver, pancreas and adrenal glands are normal. Gallbladder is normal. No renal calculi or obstructive uropathy.No free intraperitoneal air . No evidence of intestinal obstruction or inflammation. There is a colostomy noted in the right lower abdomen. The appendix is normal. There multiple omental masses and serosal implants for example abutting the left transverse colon on axial image 34 measuring 2.5 centimeters and near the hepatic flexure on axial 45 measuring 3.4 centimeters. Mildly enlarged mesenteric lymph nodes also present for example axial 54 measuring 12 mm concerning for metastatic disease. No ascites.No pathologic fracture identified. The vascular structures are unremarkable. Normal urinary bladder. No aortic aneurysm.IMPRESSION ABDOMEN/PELVIS:Scattered omental/mesenteric nodules and serosal implants as described compatible with metastatic carcinomatosis.Diffuse metastatic nodules in the lungs.Partially visualized left hydro pneumothorax. Refer to separately dictated chest CT report.Electronically signed by: REINA GARZA (Sep 05, 2022 14:57:33)
[2022-09-05] MEDS ORDERED: NS IRRIGATION* 500 ML IR ONE (16:00)
--- NOTE | 2022-09-05 18:27 | DR.H&P ---
H&P - History & Physical for Day of: H&P Date: 09/05/22 - Chief Complaint Chief Complaint: WEAKNESS, DEHYDRATION - History of Present Illness History of Present Illness: 67 y/o male presents for increasing weakness. Pt with a h/o metastatic colon ca. Has not been eating , drinking well over the past several days, having increasing weakness. Denies any pain. No report of fever, chills, cough, dyspnea, nausea, vomiting, diarrhea. Has not urinated all day. - Past Medical History Past Medical History: Hypertension, Diabetes, Arthritis Additional Medical History: COLON CANCER - Past Surgical History Surgical History: Bowel Resection - Family History Family Medical History: Diabetes Mellitus - Social History Does patient currently use any type of tobacco product: No Have you used tobacco products in the last 12 months: No Type of Tobacco Use: None Does any household member use tobacco: No Alcohol Use: None Drug Use: None - Medications Home Medications: Penicillins Allergy (Verified 06/01/22 17:00) - Review of Systems Constitutional: Weakness Eyes: No Symptoms Reported ENT: No Symptoms Reported Respiratory: Shortness of Breath, SOB with Excertion Gastrointestinal: Nausea Musculoskeletal: Back Pain, Leg Pain Skin: Wound Neurological: Weakness, Confusion - Physical Exam Vital Signs: Temperature 97.6 F Pulse Rate [Left Brachial] 122 Pulse Rate 102 Respiratory Rate 18 Blood Pressure [Right Arm] 143/72 Blood Pressure [Left Arm] 123/67 Blood Pressure 95/56 O2 Sat by Pulse Oximetry 94 Oriented: Person Eyes: Normal Ear: Normal Nose: Normal Throat: Normal Respiratory: RML Diminished, RLL Diminished, LML Diminished, LLL Diminished Cardiovascular: Normal. negative: Edema : Normal Auscultation: Bowel Sounds: Normal Palpation: Normal Tenderness: Normal Skin: Decreased Turgur, Wound (SACRAL DECUBITUS) Musculoskeletal: Back:Lumbar, Motor Deficit Psychiatric: Anxiety Mood Description: Anxious Affect: Anxious Speech Pattern: Clear, Appropriate - Assessment/Plan (1) Acute renal failure Qualifiers: Acute renal failure type: unspecified Qualified Code(s): N17.9 - Acute kidney failure, unspecified Status: Acute Plan: ADMIT, GENTLE IV HYDRATION. STRICT I&OS, WOUND CARE. PAIN CONTROL, VERIFY HOME MEDICATION (2) Sacral decubitus ulcer, stage III Status: Acute (3) H/O colon cancer, stage IV Status: Chronic (4) Hypertension Qualifiers: Hypertension type: primary hypertension Qualified Code(s): I10 - Essential (primary) hypertension Status: Chronic (5) Generalized weakness Status: Acute (6) Failure to thrive Qualifiers: Failure to thrive age range: in adult Qualified Code(s): R62.7 - Adult failure to thrive Status: Acute (7) Colon carcinoma metastatic to multiple sites Status: Acute - Allergies Allergies/Adverse Reactions: Allergies Allergy/AdvReac Type Severity Reaction Status Date / Time Penicillins Allergy Verified 06/01/22 17:00
[2022-09-05] MEDS: PROTONIX TAB 40 MG PO SCH (21:22)
[2022-09-05] MEDS: FLOMAX PO SCH (21:22)
[2022-09-05] MEDS: ZOCOR TAB 20 MG PO SCH (21:22)
[2022-09-05] MEDS: ASPIRIN EC 81 MG PO SCH (21:22)
[2022-09-06] MEDS: D5 1/2 NS 1,000 ML 1,000 ML IV SCH ×4 (02:00→13:06)
[2022-09-06 05:48] LABS: BASOPHILS # (AUTO) 0.1 X10^3/uL (0.0-0.1); BASOPHILS % (AUTO) 1.2 % (0.2-1.0); EOSINOPHILS # (AUTO) 0.7 x10^3/uL (0.0-0.2); EOSINOPHILS % (AUTO) 7.1 % (0.9-2.9); HEMATOCRIT 36.2 % (42.0-54.0); HEMOGLOBIN 11.9 g/dL (13.5-18.0); LYMPHOCYTES # (AUTO) 1.7 X10^3/uL (1.3-2.9); LYMPHOCYTES % (AUTO) 17.9 % (21.0-51.0); MEAN CORPUSCULAR HGB CONC 32.8 g/dL (33.0-35.0); MEAN CORPUSCULAR VOLUME 82.3 fL (80.0-100.0); MEAN PLATELET VOLUME 8.9 fL (7.4-11.0); MONOCYTES # (AUTO) 0.7 x10^3/uL (0.3-0.8); MONOCYTES % (AUTO) 7.4 % (0.0-13.0); NEUTROPHILS # (AUTO) 6.5 x10^3/uL (2.2-4.8); NEUTROPHILS % (AUTO) 66.4 % (42.0-75.0); RED CELL DISTRIBUTION WIDTH 18.7 % (11.6-16.5); WHITE BLOOD COUNT 9.8 X10^3/uL (3.6-10.0)
[2022-09-06 06:04] LABS: ALANINE AMINOTRANSFERASE 14 Units/L (12-78); ALBUMIN 2.5 g/dL (3.4-5.0); ALKALINE PHOSPHATASE 78 Units/L (46-116); ASPARTATE AMINO TRANSFERASE 19 Units/L (15-37); BLOOD UREA NITROGEN 32 mg/dL (7-18); CALCIUM 8.9 mg/dL (8.5-10.1); CHLORIDE 107 mmol/L (98-107); COR CA(FOR HYPOALB) 10.1 mg/dL (8.5-10.1); COR NA(FOR HYPERGLY) 138 mmol/L (136-145); CREATININE 1.07 mg/dL (0.70-1.30); SODIUM 137 mmol/L (136-145); eGFR NON BLACK RACES > 60 (>60)
[2022-09-06] MEDS: LOVENOX INJ 40 MG SYR SC SCH (08:30)
[2022-09-06 16:10] VITALS: BP 120/74
== END 2022-09-06 16:55 | disposition home or self-care (01) ==
LOC: ER 17:27 → MED/SURG 17:27
PROVIDERS: ADMIT Internal Medicine; ATTEND Internal Medicine
DX: I10 Essential (primary) hypertension; R06.02 Shortness of breath; E87.5 Hyperkalemia; E11.65 Type 2 diabetes mellitus with hyperglycemia; R26.89 Other abnormalities of gait and mobility; E86.0 Dehydration; Z93.3 Colostomy status; L89.153 Pressure ulcer of sacral region, stage 3; C18.9 Malignant neoplasm of colon, unspecified; Z79.01 Long term (current) use of anticoagulants; C79.9 Secondary malignant neoplasm of unspecified site; N28.89 Other specified disorders of kidney and ureter; M19.90 Unspecified osteoarthritis, unspecified site; R62.7 Adult failure to thrive; R53.1 Weakness

== ENCOUNTER 2022-09-19 13:09 | Observation (INO) ==
[2022-09-19] MEDS ORDERED: NS 1,000 ML IV 1,000 ML IV SCH (15:00)
[2022-09-19 15:20] VITALS: BMI 20.3
[2022-09-19 15:28] LABS: BASOPHILS # (AUTO) 0.1 X10^3/uL (0.0-0.1); BASOPHILS % (AUTO) 0.8 % (0.2-1.0); EOSINOPHILS # (AUTO) 0.1 x10^3/uL (0.0-0.2); EOSINOPHILS % (AUTO) 1.5 % (0.9-2.9); HEMATOCRIT 39.8 % (42.0-54.0); HEMOGLOBIN 12.4 g/dL (13.5-18.0); LYMPHOCYTES # (AUTO) 1.3 X10^3/uL (1.3-2.9); LYMPHOCYTES % (AUTO) 14.2 % (21.0-51.0); MEAN CORPUSCULAR HEMOGLOBIN 26.7 pg (27.0-34.0); MEAN CORPUSCULAR HGB CONC 31.2 g/dL (33.0-35.0); MEAN CORPUSCULAR VOLUME 85.6 fL (80.0-100.0); MONOCYTES # (AUTO) 0.7 x10^3/uL (0.3-0.8); MONOCYTES % (AUTO) 7.1 % (0.0-13.0); NEUTROPHILS % (AUTO) 76.4 % (42.0-75.0); RED BLOOD COUNT 4.65 X10^6/uL (4.7-6.0); RED CELL DISTRIBUTION WIDTH 18.5 % (11.6-16.5); WHITE BLOOD COUNT 9.2 X10^3/uL (3.6-10.0)
[2022-09-19 15:32] LABS: ALANINE AMINOTRANSFERASE 12 Units/L (12-78); ALBUMIN 2.5 g/dL (3.4-5.0); ALKALINE PHOSPHATASE 83 Units/L (46-116); ASPARTATE AMINO TRANSFERASE 15 Units/L (15-37); BLOOD UREA NITROGEN 50 mg/dL (7-18); CALCIUM 9.7 mg/dL (8.5-10.1); CARBON DIOXIDE 29.9 mmol/L (21-32); CHLORIDE 110 mmol/L (98-107); COR CA(FOR HYPOALB) 10.9 mg/dL (8.5-10.1); COR NA(FOR HYPERGLY) 147 mmol/L (136-145); CREATININE 1.23 mg/dL (0.70-1.30); SODIUM 145 mmol/L (136-145); TOTAL PROTEIN 6.6 g/dL (6.4-8.2); eGFR NON BLACK RACES > 60 (>60)
[2022-09-19 16:15] LABS: BILIRUBIN,URINE NEGATIVE (NEGATIVE); BLOOD/HEMOGLOBIN,URINE 1+ (NEGATIVE); GLUCOSE, URINE NEGATIVE (NEGATIVE); KETONES,URINE NEGATIVE (NEGATIVE); LEUKOCYTE ESTERASE ,URINE 2+ (NEGATIVE); NITRITES,URINE NEGATIVE (NEGATIVE); PROTEIN,URINE 3+ (NEGATIVE); UROBILINOGEN,URINE NORMAL (NORMAL)
[2022-09-19 16:22] LABS: APPEARANCE,URINE SLIGHTLY HAZY (CLEAR); COLOR,URINE YELLOW (YELLOW)
[2022-09-19 16:23] LABS: RBC,URINE 0-2 /HPF (0-3)
[2022-09-19 16:24] LABS: BACTERIA,URINE 2+ /HPF (NEGATIVE); GRANULAR CASTS,URINE MANY /LPF (NEGATIVE); SQUAMOUS EPITHELIAL CELL,UR MODERATE /HPF (NEGATIVE)
--- NOTE | 2022-09-19 16:50 | RAD ---
HISTORYWEAKNESS,SOBSTUDYCHEST, 1 [id number] bilateral opacity in the lungs. A large part of the abnormality is probably the diffuse metastatic disease seen on the chest CT 09/05/2022. The amount of abnormality in the lungs is probably not changed suggesting no acute process.But there is a new left pleural effusion which was not present previously.Heart size is normal.Bones are unremarkable.Left jugular central venous catheter is in the expected location of the superior vena cava. EKG leads are noted.IMPRESSION1. New left pleural effusionElectronically signed by: Jesus Alatorre (Sep 19, 2022 16:48:56)
[2022-09-19] MEDS ORDERED: PERCOCET TAB 5/325 MG PO PRN (21:34)
[2022-09-19 22:33] VITALS: BP 102/60
--- NOTE | 2022-10-01 09:34 | DR.CARTERS ---
Short Stay Summary - Admission Date Date of Admission: 09/19/22 - Discharge Date Discharge Date: 09/19/22 - Admission Diagnoses (1) Acute dehydration Status: Acute (2) Volume depletion Status: Acute (3) Hypotension Status: Acute (4) Colon carcinoma metastatic to multiple sites Status: Acute - Hospital Course Hospital Course: WAS A 67 YEAR OLD PATIENT OF OURS. HE PRESENTED TO THE ER A DIRECT ADMISSION, OBSERVATION STATUS, FOR TREATMENT OF DEHYDRATION, VOLUME DEPLETION, HYPOTENSION. HIS SPOUSE REPORTED THAT HE HAS HAD DECREASED ORAL INTAKE AND INCREASED WEAKNESS OVER THE PAST TWO DAYS. PATIENT HAS A PRESENT HISTORY OF STAGE 4 COLON CANCER WITH METS TO THE LUNGS. OTHER PMH INCLUDES CHF, CARDIAC ARRHYTHMIA, DM II, HYPERLIPIDEMIA, DM II, HTN, BOWEL RESECTION. ON ARRIVAL TO THE HOSPITAL, PATIENT WAS NOTED TO BE LETHARGIC AND WEAK. HE RESPONDED VERBALLY, BUT DID NOT FOLLOW COMMANDS. HIS VITALS ON ARRIVAL WERE 98.9-801-98-100%-98/65. HE WAS UTILIZING OXYGEN VIA NASAL CANNULA AT 3 LPM. LABS WERE OBTAINED. WBC 9.2, RBC 4.65, HGB 12.4, HCT 39.8, PLT COUNT 556, SODIUM 145, POTASSIUM 5.9, CHLORIDE 110, BUN 50, CREATININE 1.23, GLUCOSE 179, TOTAL BILI 0.20, AST 15, ALT 12, ALK PHOS 83, TOTAL PROTEIN 6.6, ALBUMIN 2.5. URINALYSIS WAS OBTAINED AND REVEALED: WBC 30-50, RBC 0-2, LEUKOCYTES 2+, BACTERIA 2+. URINE CULTURE WAS SET UP. CHEST XRAY WAS OBTAINED AND REVEALED: NEW LEFT PLEURAL EFFUSION. HE WAS STARTED ON NORMAL SALINE AT 80 ML/HR AND INVANZ 1G IV DAILY. WE PLANNED TO REVIEW HIS HOME MEDICATIONS WHEN THERE WERE AVAILABLE TO US. PATIENTS CODE STATUS WAS DISCUSSED WITH HIS SPOUSE. DNR WAS SIGNED. AT APPROXIMATELY 2155, PATIENT BEGAN TO DESATURATE INTO THE LOWER 80s. AT 2230, PATIENT WAS NOTED TO BE IN ASYSTOLE ON THE CLIENT RETENTION SPECIALIST. THEY REPORTED THAT NO HEART SOUNDS OR SPONTANEOUS RESPIRATIONS WERE NOTED. , ER PHYSICIAN, CALLED TIME OF AT 2240. PATIENT WAS RELEASED TO [facility] AT 0035 ON 09/20/2022. TIME SPENT ON CLINICAL ASSESSMENT, REVIWING LABS AND IMAGING, DECISION MAKING, AND DOCUMENTATION GREATER THAN 75 MINUTES. - Discharge Medications Discharge Medications: Prescriptions: - Discharge Plan Disposition: 20 - Instructions
== END 2022-09-19 22:40 | disposition expired ==
LOC: MED/SURG → ICU 15:05
PROVIDERS: ADMIT Internal Medicine; ATTEND Internal Medicine
DX: J90 Pleural effusion, not elsewhere classified; I95.89 Other hypotension; R53.1 Weakness; E11.65 Type 2 diabetes mellitus with hyperglycemia; C78.00 Secondary malignant neoplasm of unspecified lung; E78.2 Mixed hyperlipidemia; Z90.49 Acquired absence of other specified parts of digestive tract; L89.154 Pressure ulcer of sacral region, stage 4; Z66 Do not resuscitate; E86.9 Volume depletion, unspecified; I10 Essential (primary) hypertension; C18.9 Malignant neoplasm of colon, unspecified; R06.02 Shortness of breath; E86.0 Dehydration; I46.9 Cardiac arrest, cause unspecified